=== PATIENT | female | born 1940 | race Caucasian/White ===

== ENCOUNTER 2022-01-13 17:56 | Inpatient (IN) | payer MEDICARE, OTHER ==
[~2022-01-13] VITALS: Ht 165.1 cm; Wt 72.3 kg
--- NOTE | 2022-01-13 18:05 | NUR ---
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 AAOX2, BREATHING EVEN AND UNLABORED. +COUGH. SKIN WARM TO TOUCH. ON MONITOR. WILL CONTINUE TO MONITOR. TEMP 102.3
[2022-01-13] MEDS ORDERED: ACETAMINOPHEN ES 500 MG TABLET PO ONE (18:30)
[2022-01-13 18:54] LABS: CALCIUM, SERUM 9.1 mg/dL (8.5-10.1); CARBON DIOXIDE 29 mmol/L (21-32); CHLORIDE 101 mmol/L (98-107); CREATININE 1.4 mg/dL (0.6-1.3); GLUCOSE 147 mg/dL (74-106); POTASSIUM 4.1 mmol/L (3.5-5.1); SODIUM SERUM 138 mmol/L (136-145); UREA NITROGEN, BLOOD 23 mg/dL (7-18)
[2022-01-13 19:07] LABS: ALANINE AMINOTRANSFERASE 17 U/L (12-78); ALBUMIN 3.3 g/dL (3.4-5.0); ALKALINE PHOSPHATASE 39 U/L (46-116); ASPARTATE AMINOTRANSFERASE 16 U/L (15-37); BILIRUBIN,DIRECT 0.1 mg/dL (0.0-0.2); BILIRUBIN,TOTAL 0.3 mg/dL (0.2-1.0); TOTAL PROTEIN, SERUM 7.1 g/dL (6.4-8.2)
--- NOTE | 2022-01-13 19:09 | NUR ---
URINE SAMPLE OBTAINED AND SENT TO LAB
[2022-01-13] MEDS ORDERED: ACETAMINOPHEN ES 500 MG TABLET ONE (19:16)
--- NOTE | 2022-01-13 19:27 | NUR ---
[facility] [phone]
--- NOTE | 2022-01-13 19:32 | NUR ---
CALLED [facility], PAGED AIDAN FOR ADMISSION
[2022-01-13 19:51] LABS: BILIRUBIN,URINE NEGATIVE (NEGATIVE); COLOR,URINE YELLOW (YELLOW); LEUKOCYTE ESTERASE ,URINE NEGATIVE (NEGATIVE); NITRITE, URINE POSITIVE (NEGATIVE); PROTEIN,URINE NEGATIVE (NEGATIVE); UGLUCOSE NEGATIVE (NEGATIVE); UROBILINOGEN,URINE 0.2 EU/dL (0.2)
[2022-01-13] MEDS ORDERED: MORPHINE SULFATE INJ 2 MG/ML DISP.SYRIN IV PRN (20:00)
[2022-01-13] MEDS ORDERED: CEFTRIAXONE 1 G in IV D5W 50 ML IV ONE (20:00)
[2022-01-13] MEDS ORDERED: ONDANSETRON HCL/PF 4 MG/2 ML VIAL IVP PRN (20:00)
[2022-01-13] MEDS ORDERED: IV NS 0.9% 1,000 ML IV ONE (20:00)
[2022-01-13] MEDS ORDERED: IV NS 0.9% 1,000 ML BAG IV ONE (20:00)
[2022-01-13] MEDS ORDERED: LABETALOL 20 MG/4 ML VIAL IV PRN (20:00)
[2022-01-13] MEDS ORDERED: AZITHROMYCIN 250 MG TABLET PO ONE (20:00)
[2022-01-13 20:04] LABS: BASOPHILS % (AUTO) 0.2 % (0.0-2.0); EOSINOPHILS % (AUTO) 0.6 % (0.0-6.0); HEMATOCRIT 35 % (33-45); HEMOGLOBIN 11.5 g/dL (11.5-14.8); LYMPHOCYTES # (AUTO) 0.9 K/uL (0.8-4.8); LYMPHOCYTES % (AUTO) 7.9 % (20.0-44.0); MEAN CORPUSCULAR HGB CONC 33 g/dl (31.0-36.0); MEAN CORPUSCULAR VOLUME 91 fL (82-100); MONOCYTES # (AUTO) 0.4 K/uL (0.1-1.30); NEUTROPHILS # (AUTO) 10.6 K/uL (1.8-8.9); NEUTROPHILS % (AUTO) 88.3 % (43.0-81.0); PLATELET COUNT (AUTO) 229 K/uL (150-450); RED BLOOD CELL COUNT(AUTO) 3.87 MIL/uL (4.0-5.2)
[2022-01-13 20:04] LABS: BACTERIA,URINE 4+ /HPF (None Seen)
--- NOTE | 2022-01-13 20:40 | NUR ---
pt taken to ct via samantha
[2022-01-13 20:41] LABS: BAND % (MANUAL) 7 % (0.0-5.0); LYMPHOCYTES % (MANUAL) 12 % (16-48); MONOCYTES % (MANUAL) 5 % (0-11.0); NEUTROPHILS % (MANUAL) 76 (42-76)
--- NOTE | 2022-01-13 20:46 | NUR ---
pt returned to er bed [address]
[2022-01-13] MEDS ORDERED: AZITHROMYCIN 250 MG TABLET ONE (20:48)
[2022-01-13] MEDS ORDERED: CEFTRIAXONE 1 G in IV D5W 50 ML IV SCH (21:00)
[2022-01-13] MEDS ORDERED: HEPARIN SODIUM, PORCINE 5000 UNITS/1 ML VIAL SQ SCH (21:00)
[2022-01-13] MEDS: HEPARIN SODIUM, PORCINE 5000 UNITS/1 ML VIAL SQ SCH (21:40)
[2022-01-13] MEDS ORDERED: HEPARIN SODIUM, PORCINE 5000 UNITS/1 ML VIAL ONE (21:40)
[2022-01-13] MEDS: METOPROLOL TARTRATE 25 MG TABLET PO SCH (23:00)
[2022-01-13] MEDS ORDERED: METOPROLOL TARTRATE 25 MG TABLET ONE (23:24)
[2022-01-13 23:55] LABS: THYROID STIMULATING HORMONE 1.009 uIU/mL (0.358-3.74)
[2022-01-14 00:10] LABS: ABG BASE EXCESS -1.3 mmol/L; ABG PCO2 41.8 mmHg (35.0-45.0); ABG PH 7.374 (7.350-7.450); ABG PO2 76.1 mmHg (75.0-100.0); COHb 0.2 % (0.5-1.5); O2Hb 93.9 % (94.0-97.0); SITE, ABG Right Brachial; VENT MODE, BG 5L N/C
[2022-01-14] MEDS: IPRATROPIUM/ALBUTEROL INHALER IH SCH ×4 (01:30→21:08)
--- NOTE | 2022-01-14 02:10 | NUR ---
PT SLEEPING IN BED WITH NO ACUTE DISTRESS AT THIS TIME. TOLERATING O2 5LPM VIA N/C WITH NO SOB; SATTING AT 97%. L HAND #20G S/L; NS @ 80ML/HR. WILL CONTINUE TO MONITOR.
--- NOTE | 2022-01-14 04:10 | NUR ---
RAC #20G S/L; PATENT AND INTACT. AM BLOOD DRAWN AND GIVEN TO LAB
[2022-01-14 04:36] LABS: BASOPHILS # (AUTO) 0.1 K/uL (0.0-0.2); BASOPHILS % (AUTO) 0.3 % (0.0-2.0); EOSINOPHILS % (AUTO) 0.5 % (0.0-6.0); HEMATOCRIT 36 % (33-45); HEMOGLOBIN 11.6 g/dL (11.5-14.8); LYMPHOCYTES % (AUTO) 18.9 % (20.0-44.0); MEAN CORPUSCULAR HGB CONC 32 g/dl (31.0-36.0); MEAN CORPUSCULAR VOLUME 93 fL (82-100); MONOCYTES # (AUTO) 0.9 K/uL (0.1-1.30); MONOCYTES % (AUTO) 4.3 % (2.0-12.0); NEUTROPHILS # (AUTO) 16.1 K/uL (1.8-8.9); PLATELET COUNT (AUTO) 288 K/uL (150-450); WHITE BLOOD COUNT (AUTO) 21.2 K/uL (4.3-11.0)
[2022-01-14 05:00] LABS: ALANINE AMINOTRANSFERASE 15 U/L (12-78); ALBUMIN 3.4 g/dL (3.4-5.0); ALKALINE PHOSPHATASE 42 U/L (46-116); ASPARTATE AMINOTRANSFERASE 17 U/L (15-37); BILIRUBIN,TOTAL 0.4 mg/dL (0.2-1.0); CALCIUM, SERUM 9.1 mg/dL (8.5-10.1); CARBON DIOXIDE 23 mmol/L (21-32); CHLORIDE 101 mmol/L (98-107); CREATININE 1.7 mg/dL (0.6-1.3); GLUCOSE 160 mg/dL (74-106); MAGNESIUM 1.7 mg/dL (1.8-2.4); PHOSPHORUS 3.2 mg/dL (2.5-4.9); POTASSIUM 3.3 mmol/L (3.5-5.1); SODIUM SERUM 140 mmol/L (136-145); TOTAL PROTEIN, SERUM 7.7 g/dL (6.4-8.2); UREA NITROGEN, BLOOD 24 mg/dL (7-18)
--- NOTE | 2022-01-14 08:20 | NUR ---
BED ASSIGNED IS 104
--- NOTE | 2022-01-14 08:38 | NUR ---
REPORT GIVEN TO EDNA ELIAS FOR DEN
[2022-01-14] MEDS ORDERED: CEFTRIAXONE 1 G VIAL IM SCH (09:00)
--- NOTE | 2022-01-14 09:39 | NUR ---
WOUND CARE CONSULT: PT PRESENTS WITH OPEN WOUND TO RT LATERAL FOOT, PRESENT ON ADMISSION. DR MONROY CALLED FOR DPM CONSULT. RECOMMENDATIONS MADE FOR SKIN PROTECTION AND DISCUSSED WITH NURSING STAFF. MD IN AGREEMENT WITH PLAN OF CARE.
[2022-01-14] MEDS ORDERED: POTASSIUM CHLORIDE 10 MEQ TABLET.SA PO ONE (10:00)
[2022-01-14] MEDS ORDERED: MAGNESIUM OXIDE 400 MG TABLET PO ONE (10:00)
[2022-01-14] MEDS ORDERED: Z GUARD REMEDY 4 OZ OINT TP PRN (10:00)
[2022-01-14] MEDS: DEXAMETHASONE SOD PHOSPHATE 10 MG/ML VIAL IV SCH (10:10)
[2022-01-14] MEDS: HEPARIN SODIUM, PORCINE 5000 UNITS/1 ML VIAL SQ SCH ×2 (10:11→21:27)
[2022-01-14] MEDS: METOPROLOL TARTRATE 25 MG TABLET PO SCH ×2 (10:12→21:12)
[2022-01-14] MEDS: Z GUARD REMEDY 4 OZ OINT TP SCH (10:56)
--- NOTE | 2022-01-14 11:12 | NUR ---
RN NOTES INHALER NOT ADMINISTERED FOR 734, PATIENT STILL IN THE ER.
[2022-01-14 12:00] VITALS: BP 139/71
[2022-01-14 16:00] VITALS: BP 149/70
--- NOTE | 2022-01-14 18:30 | NUR ---
RN CLOSING NOTES; PT A/OX1, NIGERIAN SPEAKING. CAN MAKE NEEDS KNOWN THROUGH GESTURES. NO C/O PAIN AT THIS TIME. NO EVIDENCE TO SOB, OR DISTRESS NOTED. ALL MEDICATIONS GIVEN AND TOLERATED WELL. PT KEPT CLEAN, DRY , AND COMFORTABLE. ALL SAFETY MEASURES RENDERED, BED LOCKED IN LOWEST POS. SIDERAILSX3, WITH CALL LIGHT WITHIN REACH. WILL ENDORSE TO MERCHANDISING EXECUTION ASSOCIATE RN.
--- NOTE | 2022-01-14 19:30 | NUR ---
RN OPENING NOTES; RECEIVED PT IN BED AWAKE, A/OX1, ESTONIAN SPEAKING. ON O2 2L/MIN VIA N/C AND PT TOLERATED WELL. NO SOB NOTED. BREATHING EVEN AND UNLABORED. IV ACCESS ON RAC#20G INTACT AND PATENT. NO S/S OF INFILTRATION. NO C/O PAIN OR DISCOMFORT. NO ACUTE DISTRESS. BILATERAL SOFT RESTRAINT ON PLACE. ALL SAFETY MEASURES IN PLACE. BED LOCKED IN LOWEST POSITION. SIDERAILS UP X3, PLACE CALL LIGHT WITHIN REACH. WILL CONTINUE TO MONITOR.
[2022-01-14 20:00] VITALS: BP 153/92
[2022-01-14] MEDS: AZITHROMYCIN 500 MG in IV D5W 250 ML IV SCH (20:57)
[2022-01-14] MEDS: CEFTRIAXONE 1 G in IV D5W 50 ML IV SCH (20:57)
[2022-01-15] VITALS: BP 156/74
[2022-01-15] MEDS: IPRATROPIUM/ALBUTEROL INHALER IH SCH ×3 (01:28→20:36)
[2022-01-15 04:00] VITALS: BP 159/89
--- NOTE | 2022-01-15 06:40 | NUR ---
RN CLOSING NOTES; PT IN BED AWAKE, A/OX1, MACEDONIAN SPEAKING. ON O2 2L/MIN VIA N/C, O2 SAT 93% AND PT TOLERATED WELL. NO SOB NOTED. BREATHING EVEN AND UNLABORED. IV ACCESS ON RAC#20G INTACT AND PATENT. NO S/S OF INFILTRATION. RUNNING NS AT 75CC/HR. NO C/O PAIN OR DISCOMFORT. NO ACUTE DISTRESS. BILATERAL SOFT RESTRAINT ON PLACE. RELEASE [id number] TO CHECK CIRCULATIONS. ALL DUE MEDS GIVEN ORDERED. ALL SAFETY MEASURES IN PLACE. BED LOCKED IN LOWEST POSITION. SIDERAILS UP X3, PLACE CALL LIGHT WITHIN REACH. WILL ENDORSE TO MORNING SHIFT NURSE. Addendum: 01/15/22 at 0736 by SURJIT RUTH RN WRONG CHART
--- NOTE | 2022-01-15 06:40 | NUR ---
RN CLOSING NOTES; PT IN BED AWAKE, A/OX1, JAPANESE SPEAKING. ON O2 2L/MIN VIA N/C, O2 SAT 93% AND PT TOLERATED WELL. NO SOB NOTED. BREATHING EVEN AND UNLABORED. IV ACCESS ON RAC#20G INTACT AND PATENT. NO S/S OF INFILTRATION. NO C/O PAIN OR DISCOMFORT. NO ACUTE DISTRESS. BILATERAL SOFT RESTRAINT ON PLACE. RELEASE [id number] TO CHECK CIRCULATIONS. ALL DUE MEDS GIVEN ORDERED. ALL SAFETY MEASURES IN PLACE. BED LOCKED IN LOWEST POSITION. SIDERAILS UP X3, PLACE CALL LIGHT WITHIN REACH. WILL ENDORSE TO MORNING SHIFT NURSE.
[2022-01-15 06:59] LABS: BASOPHILS % (AUTO) 0.2 % (0.0-2.0); HEMATOCRIT 33 % (33-45); LYMPHOCYTES # (AUTO) 0.9 K/uL (0.8-4.8); LYMPHOCYTES % (AUTO) 8.4 % (20.0-44.0); MEAN CORPUSCULAR HGB CONC 34 g/dl (31.0-36.0); MEAN CORPUSCULAR VOLUME 90 fL (82-100); MONOCYTES # (AUTO) 0.4 K/uL (0.1-1.30); MONOCYTES % (AUTO) 3.6 % (2.0-12.0); NEUTROPHILS # (AUTO) 9.5 K/uL (1.8-8.9); NEUTROPHILS % (AUTO) 87.8 % (43.0-81.0); PLATELET COUNT (AUTO) 240 K/uL (150-450); RED BLOOD CELL COUNT(AUTO) 3.66 MIL/uL (4.0-5.2); WHITE BLOOD COUNT (AUTO) 10.9 K/uL (4.3-11.0)
--- NOTE | 2022-01-15 07:15 | NUR ---
RN OPENING NOTES; RECEIVED PT IN BED AWAKE, A/OX1, FILIPINO SPEAKING. ON O2 2L/MIN VIA N/C, NO SOB NOTED. SATURATION @93%. BREATHING EVEN AND UNLABORED. IV ACCESS ON RAC#20G INTACT AND PATENT, SALINE LOCKED. NO C/O PAIN OR DISCOMFORT. NO ACUTE DISTRESS. BILATERAL SOFT RESTRAINT IN PLACE. SAFETY MEASURES IN PLACE. BED LOCKED IN LOWEST POSITION. SIDERAILS UP X3, CALL LIGHT PLACED WITHIN REACH. WILL CONTINUE TO MONITOR.
[2022-01-15 07:37] LABS: BILIRUBIN,TOTAL 0.3 mg/dL (0.2-1.0); CALCIUM, SERUM 9.5 mg/dL (8.5-10.1); CREATININE 1.1 mg/dL (0.6-1.3); MAGNESIUM 1.8 mg/dL (1.8-2.4); PHOSPHORUS 2.1 mg/dL (2.5-4.9); TOTAL PROTEIN, SERUM 7.4 g/dL (6.4-8.2)
[2022-01-15 08:00] VITALS: BP 161/81
[2022-01-15] MEDS: DEXAMETHASONE SOD PHOSPHATE 10 MG/ML VIAL IV SCH (08:28)
[2022-01-15] MEDS: METOPROLOL TARTRATE 25 MG TABLET PO SCH ×2 (08:29→21:15)
[2022-01-15] MEDS: HEPARIN SODIUM, PORCINE 5000 UNITS/1 ML VIAL SQ SCH ×2 (08:31→21:16)
[2022-01-15] MEDS: Z GUARD REMEDY 4 OZ OINT TP SCH (08:32)
[2022-01-15] MEDS ORDERED: ERGO500093 PO (08:49)
[2022-01-15] MEDS ORDERED: MECL-182 PO (08:49)
[2022-01-15] MEDS ORDERED: ASPI-1420 PO (08:49)
[2022-01-15] MEDS ORDERED: LORA-259 PO (08:49)
[2022-01-15] MEDS: THERAHONEY GEL 1.5 OZ TUBE TP SCH (09:25)
[2022-01-15] MEDS: ENSURE ENLIVE CHOC 237 ML CAN PO SCH ×3 (09:58→17:08)
[2022-01-15] MEDS ORDERED: K PHOS NEUTRAL 250 MG TABLET PO ONE (10:00)
[2022-01-15 12:00] VITALS: BP 164/104
[2022-01-15 16:00] VITALS: BP 151/84
--- NOTE | 2022-01-15 18:50 | NUR ---
RN CLOSING NOTES PT IN BED AWAKE, A/OX1-2, TONGAN SPEAKING. REMAINS ON O2 2L/MIN VIA N/C, NO SOB NOTED. SATURATION @93%. BREATHING EVEN AND UNLABORED. IV ACCESS ON RAC#20G INTACT AND PATENT, SALINE LOCKED. ON TELE MONITOR SHOWING CONTROLLED AFIB HR ON 90 - 110'S. NO C/O PAIN OR DISCOMFORT. NO ACUTE DISTRESS. BILATERAL SOFT RESTRAINT IN PLACE. SAFETY MEASURES IN PLACE. BED LOCKED IN LOWEST POSITION. SIDERAILS UP X3, CALL LIGHT PLACED WITHIN REACH. WILL ENDORSE TO NEXT SHIFT.
--- NOTE | 2022-01-15 19:00 | NUR ---
RECEIVED IN PATIENT IN HER BED SINHALA SPEAKING DIAPER CHANGED D/T SHE VOIDED NOT AGITATION AND HER PULLING ON THE BLANKETS ALAN WRIST RESTRAINTS REMOVED WHILE I WAS IN THE ROOM SHE PROCECEC TO REMOCE HER LEAD FRONT DESK AGENT SHE IS CONFUSED OF THE SITUATION GAVE HER WATER AND SHE SWALLOWED W/O A PROBLEM ASP PRECAUTIONS MAINTAINTAINED
[2022-01-15 20:00] VITALS: BP 149/93
[2022-01-15] MEDS: CEFTRIAXONE 1 G in IV D5W 50 ML IV SCH (20:30)
[2022-01-15] MEDS: AZITHROMYCIN 500 MG in IV D5W 250 ML IV SCH (21:14)
[2022-01-15] MEDS: ACETAMINOPHEN 325 MG TABLET PO PRN (21:46)
[2022-01-16] VITALS: BP 145/68
[2022-01-16] MEDS: IPRATROPIUM/ALBUTEROL INHALER IH SCH ×4 (03:01→21:40)
[2022-01-16 04:09] VITALS: BP 154/66
--- NOTE | 2022-01-16 04:35 | NUR ---
alert but confused wrist restraints on d/t she removes her IV or the telle box wrist restraints off when nuse is in the room moderate bm clean and repositioned call light reveiewed with her , understand not present. room near the nursing station making freq checks easy 02 2liters sats 92 - 94%
[2022-01-16 08:00] VITALS: BP 158/78
[2022-01-16] MEDS: DEXAMETHASONE SOD PHOSPHATE 10 MG/ML VIAL IV SCH (08:47)
[2022-01-16] MEDS: HEPARIN SODIUM, PORCINE 5000 UNITS/1 ML VIAL SQ SCH ×2 (08:49→21:36)
[2022-01-16] MEDS: METOPROLOL TARTRATE 25 MG TABLET PO SCH ×2 (08:53→21:33)
[2022-01-16] MEDS: ENSURE ENLIVE CHOC 237 ML CAN PO SCH ×3 (09:06→17:53)
[2022-01-16] MEDS: THERAHONEY GEL 1.5 OZ TUBE TP SCH (09:57)
[2022-01-16] MEDS: Z GUARD REMEDY 4 OZ OINT TP SCH (09:57)
[2022-01-16 12:00] VITALS: BP 133/78
[2022-01-16 16:00] VITALS: BP 129/82
--- NOTE | 2022-01-16 18:43 | NUR ---
RN NOTES PT RESTING AWAKE IN BED. STABLE THROUGHOUT SHIFT. A/OX1-2. REMAINS ON O2 2L/MIN VIA N/C, NO SOB NOTED. SATURATION @94%. IV ACCESS ON LFA#20G INTACT AND PATENT, SALINE LOCKED. TELE MONITOR SHOWING SR/ST. NO C/O PAIN OR DISCOMFORT. NO ACUTE DISTRESS. BILATERAL SOFT RESTRAINT IN PLACE. SAFETY MEASURES FOLLOWED. BED LOCKED IN LOWEST POSITION. SIDERAILS UP X3, CALL LIGHT PLACED WITHIN REACH. WILL ENDORSE TO NEXT SHIFT.DUE MEDICATIONS GIVEN.
--- NOTE | 2022-01-16 19:10 | NUR ---
RN NOTES RECEIVED REPORT FROM MORNING NURSE PATIENT IN BED. A/O X 1-2. WITH OXYGEN INHALATION AT 2LPM VIA NASAL CANULA SATING 95%. NO DISTRESS NO DESATURATION NOTED AT THIS TIME. WITH IV ACCESS AT RFA # 22 PATENT FLUSHES WELL. VITAL SIGNS TAKEN AND RECORDED AFEBRILE. ALL SAFETY MEASURES IN PLACE AT ALL TIMES. HOB ELEVATED. CALL LIGHT WITHIN REACH. WILL CONTINUE TO MONITOR THE PATIENT
[2022-01-16 20:00] VITALS: BP 129/82
[2022-01-16] MEDS: CEFTRIAXONE 1 G in IV D5W 50 ML IV SCH (21:32)
[2022-01-16] MEDS: AZITHROMYCIN 500 MG in IV D5W 250 ML IV SCH (21:32)
[2022-01-17] VITALS (7 sets, daily range): BP systolic 140–163; BP diastolic 72–97
[2022-01-17] MEDS: IPRATROPIUM/ALBUTEROL INHALER IH SCH ×2 (05:56→19:38)
--- NOTE | 2022-01-17 06:58 | NUR ---
RN CLOSING NOTES PT IN BED AWAKE, A/OX1-2, VATICAN CITIZEN SPEAKING. REMAINS ON O2 2L/MIN VIA N/C, NO SOB NOTED. SATURATION @93%. BREATHING EVEN AND UNLABORED. IV ACCESS ON R FOREARM #22G INTACT AND PATENT, SALINE LOCKED. ON TELE MONITOR SHOWING CONTROLLED AFIB HR ON 90 - 110'S. NO C/O PAIN OR DISCOMFORT. NO ACUTE DISTRESS. BILATERAL SOFT RESTRAINT IN PLACE. SAFETY MEASURES IN PLACE. BED LOCKED IN LOWEST POSITION. SIDERAILS UP X3, CALL LIGHT PLACED WITHIN REACH. WILL ENDORSE TO NEXT SHIFT.
--- NOTE | 2022-01-17 07:43 | NUR ---
DEAN OF WOMEN OPENING NOTES RECEIVED PATIENT IN BED, A/O X 1-2. WITH OXYGEN SUPPLEMENTATION AT 2LPM VIA NASAL CANULA SATING 95%. NO DISTRESS NO DESATURATION NOTED AT THIS TIME. WITH IV ACCESS AT RFA # 22 PATENT FLUSHES WELL. VITAL SIGNS TAKEN AND RECORDED AFEBRILE. SOFT RESTRAINTS INTACT DUE TO DISRUPTION OF CARE. BILATERAL PULSES PALPATED AND WNL. ALL SAFETY MEASURES IN PLACE AT ALL TIMES. HOB ELEVATED. CALL LIGHT WITHIN REACH. WILL CONTINUE TO MONITOR THE PATIENT.
[2022-01-17] MEDS: ENSURE ENLIVE CHOC 237 ML CAN PO SCH ×3 (08:00→16:40)
[2022-01-17 08:19] LABS: BASOPHILS % (AUTO) 0.4 % (0.0-2.0); HEMATOCRIT 37 % (33-45); HEMOGLOBIN 11.8 g/dL (11.5-14.8); LYMPHOCYTES # (AUTO) 1.1 K/uL (0.8-4.8); LYMPHOCYTES % (AUTO) 13.8 % (20.0-44.0); MEAN CORPUSCULAR HGB CONC 32 g/dl (31.0-36.0); MEAN CORPUSCULAR VOLUME 91 fL (82-100); MONOCYTES # (AUTO) 0.6 K/uL (0.1-1.30); MONOCYTES % (AUTO) 7.3 % (2.0-12.0); NEUTROPHILS # (AUTO) 6.1 K/uL (1.8-8.9); NEUTROPHILS % (AUTO) 78.5 % (43.0-81.0); PLATELET COUNT (AUTO) 275 K/uL (150-450); RED BLOOD CELL COUNT(AUTO) 4.02 MIL/uL (4.0-5.2); WHITE BLOOD COUNT (AUTO) 7.8 K/uL (4.3-11.0)
[2022-01-17 09:03] LABS: CALCIUM, SERUM 9.2 mg/dL (8.5-10.1); MAGNESIUM 2.4 mg/dL (1.8-2.4); POTASSIUM 3.4 mmol/L (3.5-5.1)
[2022-01-17] MEDS: Z GUARD REMEDY 4 OZ OINT TP SCH (10:09)
[2022-01-17] MEDS: METOPROLOL TARTRATE 25 MG TABLET PO SCH ×2 (10:09→22:39)
[2022-01-17] MEDS: DEXAMETHASONE SOD PHOSPHATE 10 MG/ML VIAL IV SCH (10:09)
[2022-01-17] MEDS: THERAHONEY GEL 1.5 OZ TUBE TP SCH (10:09)
[2022-01-17] MEDS: HEPARIN SODIUM, PORCINE 5000 UNITS/1 ML VIAL SQ SCH ×2 (10:18→22:40)
--- NOTE | 2022-01-17 12:30 | NUR ---
FAMILY THERAPIST NOTE SPOKE WITH DR MOSES NOTIFIED THAT PATIENT PCR IS NEGATIVE PER LAB AND FAMILY WANTS TO TRANSFER TO [facility] , PER DR MOSES OK TO TRANSFER TO ROOM 328-2
--- NOTE | 2022-01-17 14:38 | NUR ---
HYDRAULIC PILE HAMMER OPERATOR NOTES CALLED LAB TO VERIFY RESULT OF PCR TEST. SPOKE TO LAB PERSONNEL, HE SAID PCR IS NEGATIVE BUT UNABLE TO PLACE RESULTS IN COMPUTER DUE TO MACHINE/COMPUTER BEING BROKEN. FAMILY WANTS TO TRANSFER PT TO [facility]. NURSING STRADDLE BUG OPERATOR NOTIFIED. WILL FOLLOW UP.
--- NOTE | 2022-01-17 18:11 | NUR ---
LICENSED INSURANCE AGENT CLOSING NOTES PT IN BED AWAKE, A/OX1-2, SURINAMESE SPEAKING. REMAINS ON O2 2L/MIN VIA N/C, NO SOB NOTED. SATURATION @95%. BREATHING EVEN AND UNLABORED. IV ACCESS ON R FOREARM #22G INTACT AND PATENT, SALINE LOCKED. ON TELE MONITOR SHOWING SINUS RHYTHM IN THE 90S. NO C/O PAIN OR DISCOMFORT. NO ACUTE DISTRESS. BILATERAL SOFT RESTRAINT IN PLACE. PALPABLE RADIAL ARTERIES BILATERALLY. SAFETY MEASURES IN PLACE. BED LOCKED IN LOWEST POSITION. SIDERAILS UP X3, CALL LIGHT PLACED WITHIN REACH. WILL ENDORSE TO NEXT SHIFT.
--- NOTE | 2022-01-17 19:10 | NUR ---
RN NOTES RECEIVED REPORT FROM MORNING RN.PATIENT IN BED A/O X 1 IRANIAN SPEAKING. WITH OXYGEN INHALATION AT 2 LMP VIA NC TOLERATING WELL SATING 96%. WITH IV ACCESS AT R FA #22 PATENT FLUSHES WELL. VITAL SIGNS TAKEN AND RECORDED AFEBRILE. ALL SAFETY MEASURES IN PLACE AT ALL TIMES. HOB ELEVATED. CALL LIGHT WITHIN REACH. JAMIR ON LOWEST POSITION AND LOCKED. FOR TRANSFER TO [facility].
--- NOTE | 2022-01-17 20:12 | NUR ---
RN NOTES RELAYED TO DR MOSES POTASSIUM 3.4. WITH NEW ORDER TO GIVE POTASSIUM TAB 40 MEQ GIVEN P.O.
[2022-01-17] MEDS ORDERED: POTASSIUM CHLORIDE 20 MEQ TAB.PRT.SR PO ONE (20:30)
--- NOTE | 2022-01-17 21:00 | NUR ---
RN NOTES PATIENT TRANSFER TO [address] [place] [address] 329. BEDSIDE REPORT GIVEN TO JOSE ELIAS. ALL MEDICATIONS AND BELONGINGS GIVEN AND ENDORSED. PATIENT COMFORTABLE AND STABLE IN BED.
--- NOTE | 2022-01-17 21:15 | NUR ---
LINE TECHNICIANCOMMUNICATION SPEC RECEIVING NOTE PATIENT RECEIVED FROM JOELLEN BY TRAVIS. DAVID BROUGHT PATIENT TO ROOM 329/1. PATIENT IS A/OX1. YORUBA SPEAKING. RFA #22 SL INTACT AND PATENT. NO S/S OF DISTRESS, BREATHING SYMMETRICAL. TELE MONITOR PLACED ON PATIENT AND REVEALED SR 98. RT FOOT ULCERATION NOTED AND PICTURE UNIT PICTURE TAKEN OF AND PLACED IN CHART. PATIENT WAS STILL ORIENTED TO THE ROOM, THE UNIT, AND GIVEN THE CALL SERRANO ALONG WITH ITS INSTRUCTION OF USE. PATIENT IS IN BILAT SOFT WRIST RESTRAINTS D/T TO PULLING LINES OUT. ORDER WILL BE RENEWED AT 0000. THE MANUFACTURING HELPERBING, HAD THE BELONGINGS ACCOUNTED FOR AND LOGGED INTO THE PATIENT'S CHART. SAFETY MEASURES IN PLACE: BED AT LOWEST POSITION, RAILS UP X2, CALL SERRANO WITHIN REACH. WILL CONTINUE TO MONITOR PATIENT.
[2022-01-17] MEDS: CEFTRIAXONE 1 G in IV D5W 50 ML IV SCH (21:45)
[2022-01-17] MEDS: AZITHROMYCIN 500 MG in IV D5W 250 ML IV SCH (22:30)
[2022-01-18] VITALS: BP 151/81
[2022-01-18] MEDS: IPRATROPIUM/ALBUTEROL INHALER IH SCH ×3 (01:30→13:48)
[2022-01-18 04:00] VITALS: BP 145/80
--- NOTE | 2022-01-18 06:46 | NUR ---
FAMILY REUNIFICATION SPECIALIST CLOSING NOTE PATIENT IS ASLEEP IN BED. A/OX1. EAST TIMORESE SPEAKING ONLY. NO S/S OF DISTRESS, BREATHING SYMMETRICAL. 3L NC. RFA #22 SL INTACT AND PATENT. TELE MONITOR REVEALS SR 88. FRESH DRESSING APPLIED TO RIGHT FOOT WOUND. SAFETY MEASURES IN PLACE: BED AT LOWEST POSITION, RAILS UP X2, CALL SERRANO WITHIN REACH. WILL ENDORSE TO NEXT SHIFT FOR DEN.
--- NOTE | 2022-01-18 07:43 | NUR ---
GRAIN DISTRIBUTOR OPENING NOTES RECEIVED Pt IN BED RESTING. Pt IS CITIZEN OF [place] SPEAKING. A/Ox1. Pt IS ON 3L VIA NC AND IS TOLERATING WELL. NO COMPLAINTS OF PAIN AND NO SIGNS OF DISTRESS AT THIS TIME. SAFETY MEASURES ARE IN PLACE: BED IS LOCKED AND IN LOWEST POSITION. SIDE RAILS UPx2. BED SIDE TABLE AND CALL LIGHT ARE WITHIN REACH.WILL CONTINUE TO MONITOR THROUGHOUT THE SHIFT
[2022-01-18] MEDS: ENSURE ENLIVE CHOC 237 ML CAN PO SCH ×3 (07:52→17:18)
[2022-01-18 08:00] VITALS: BP 149/82
[2022-01-18] MEDS: DEXAMETHASONE SOD PHOSPHATE 10 MG/ML VIAL IV SCH (09:16)
[2022-01-18] MEDS: METOPROLOL TARTRATE 25 MG TABLET PO SCH ×2 (09:16→20:24)
[2022-01-18] MEDS: Z GUARD REMEDY 4 OZ OINT TP SCH (09:17)
[2022-01-18] MEDS: THERAHONEY GEL 1.5 OZ TUBE TP SCH (09:17)
[2022-01-18] MEDS: HEPARIN SODIUM, PORCINE 5000 UNITS/1 ML VIAL SQ SCH ×2 (09:20→20:23)
[2022-01-18 12:00] VITALS: BP 160/91
[2022-01-18 16:00] VITALS: BP 158/88
--- NOTE | 2022-01-18 18:58 | NUR ---
FLIGHT OPERATIONS MANAGER CLOSING NOTES Pt IS IN BED WITH FAMILY AT BEDSIDE. SHE IS A/Ox1. Pt IS CONFUSED AND SPEAKS ROMANIAN. SHE IS ON NC 3L WITH NO DISTRESS AT THIS TIME. SAFETY MEASURES ARE IN PLACE: BED IS LOCKED AND IN LOWEST POSITION. SIDE RAILS UPx3. CALL LIGHT AND BED SIDE TABLE WITHIN REACH, WILL ENDORSE TO ONCOMING SHIFT.
--- NOTE | 2022-01-18 19:45 | NUR ---
SURGERY AID OPENING NOTES RECEIVED PATIENT LAYING AWAKE IN BED. A/O X1. PATIENT ON REGULAR AND UNLABORED BREATHING ON 3LPM VIA NASAL CANULA, TOLERATED WELL. NO SIGNS OR SYMPTOMS OF DISTRESS NOTED AT THIS TIME. NO COMPLAINS OF PAIN OR DISCOMFORT AT THIS TIME. PATIENT ON TELE MONITOR READING ST @ 116 BPM. IV ACCESS RFA G #22 SL. IV ACCESS PATENT AND INTACT. SAFETY PRECAUTIONS ENFORCED WITH BED LOCKED AND AT LOWEST POSITION. SIDERAILS UP X2. CALL LIGHT WITHIN REACH AT ALL TIMES. WILL CONTINUE TO MONITOR PATIENT.
[2022-01-18 20:00] VITALS: BP 132/81
[2022-01-18] MEDS: CEFTRIAXONE 1 G in IV D5W 50 ML IV SCH (20:20)
[2022-01-19] VITALS: BP 131/73
[2022-01-19 04:00] VITALS: BP 153/96
[2022-01-19 06:38] LABS: BASOPHILS % (AUTO) 0.1 % (0.0-2.0); EOSINOPHILS % (AUTO) 0.1 % (0.0-6.0); HEMATOCRIT 31 % (33-45); HEMOGLOBIN 9.9 g/dL (11.5-14.8); LYMPHOCYTES # (AUTO) 1.5 K/uL (0.8-4.8); LYMPHOCYTES % (AUTO) 12.7 % (20.0-44.0); MEAN CORPUSCULAR HGB CONC 32 g/dl (31.0-36.0); MEAN CORPUSCULAR VOLUME 90 fL (82-100); MONOCYTES # (AUTO) 0.8 K/uL (0.1-1.30); MONOCYTES % (AUTO) 6.9 % (2.0-12.0); NEUTROPHILS # (AUTO) 9.3 K/uL (1.8-8.9); NEUTROPHILS % (AUTO) 80.2 % (43.0-81.0); PLATELET COUNT (AUTO) 262 K/uL (150-450); RED BLOOD CELL COUNT(AUTO) 3.38 MIL/uL (4.0-5.2); WHITE BLOOD COUNT (AUTO) 11.6 K/uL (4.3-11.0)
[2022-01-19 07:27] LABS: CALCIUM, SERUM 8.8 mg/dL (8.5-10.1); CREATININE 0.9 mg/dL (0.6-1.3); MAGNESIUM 2.2 mg/dL (1.8-2.4); PHOSPHORUS 2.8 mg/dL (2.5-4.9); POTASSIUM 3.7 mmol/L (3.5-5.1)
--- NOTE | 2022-01-19 07:36 | NUR ---
DIRECTOR OF ENTERPRISE APPLICATIONS CLOSING NOTES PATIENT STILL LAYING AWAKE IN BED. A/O X1. PATIENT ON REGULAR AND UNLABORED BREATHING ON 3LPM VIA NASAL CANULA, TOLERATED WELL. NO SIGNS OR SYMPTOMS OF DISTRESS NOTED AT THIS TIME. NO COMPLAINS OF PAIN OR DISCOMFORT AT THIS TIME. PATIENT ON TELE MONITOR READING SR @ 90 BPM. IV ACCESS RFA G #22 SL. IV ACCESS PATENT AND INTACT. SAFETY PRECAUTIONS ENFORCED WITH BED LOCKED AND AT LOWEST POSITION. SIDERAILS UP X2. CALL LIGHT WITHIN REACH AT ALL TIMES. WILL ENDORSE CONTINUITY OF CARE TO DAY SHIFT NURSE.
--- NOTE | 2022-01-19 07:53 | NUR ---
DIETETICS TEACHER OPENING NOTE Patient in bed, awake. A/O x 1, Swedish speaking. On O2 at 3 LPM, breathing evenly and unlabored. No SOB or s/s of distress noted. IV acces on RFA #22G SL, intact and patent. Dressing on right foot c/d/i. On tele monitoring showing SR, HR on the 80's. Safety measures in place: bed in low, locked position; siderails up x 2; valentina light within reach. Will continue to monitor.
[2022-01-19 08:00] VITALS: BP 135/85
[2022-01-19] MEDS: ENSURE ENLIVE CHOC 237 ML CAN PO SCH ×3 (08:05→17:04)
[2022-01-19] MEDS: METOPROLOL TARTRATE 25 MG TABLET PO SCH ×2 (09:06→20:46)
[2022-01-19] MEDS: DEXAMETHASONE SOD PHOSPHATE 10 MG/ML VIAL IV SCH (09:06)
[2022-01-19] MEDS: HEPARIN SODIUM, PORCINE 5000 UNITS/1 ML VIAL SQ SCH ×2 (09:11→20:48)
[2022-01-19] MEDS: IPRATROPIUM/ALBUTEROL INHALER IH SCH ×3 (09:17→19:51)
[2022-01-19] MEDS: THERAHONEY GEL 1.5 OZ TUBE TP SCH (09:18)
[2022-01-19] MEDS: Z GUARD REMEDY 4 OZ OINT TP SCH (09:18)
[2022-01-19 12:00] VITALS: BP 136/78
[2022-01-19] MEDS: ACETAMINOPHEN 325 MG TABLET PO PRN (14:37)
[2022-01-19 16:00] VITALS: BP 133/84
--- NOTE | 2022-01-19 19:35 | NUR ---
CLEANING ASSOCIATE CLOSING NOTE Patient in bed, asleep. A/O x 1, Citizen Of [place] speaking. On O2 at 4 LPM, breathing evenly and unlabored. No SOB or s/s of distress noted. IV acces on RFA #22G SL, intact and patent. Wound care done, as ordered. Dressing on right foot c/d/i. On tele monitoring showing Sinus tachycardia, HR 102. Patient kept clean and dry. Due meds given. Safety measures maintained: bed in low, locked position; siderails up x 2; valentina light within reach. Will endorse to assembler 1st shift nurse for DEN.
--- NOTE | 2022-01-19 19:45 | NUR ---
IMPORT CUSTOMS CLEARING AGENT OPENING NOTES RECEIVED PATIENT LAYING AWAKE IN BED. A/O X1. PATIENT ON REGULAR AND UNLABORED BREATHING ON 4 LPM VIA NASAL CANULA, TOLERATED WELL. NO SIGNS OR SYMPTOMS OF DISTRESS NOTED AT THIS TIME. NO COMPLAINS OF PAIN OR DISCOMFORT AT THIS TIME. PATIENT ON TELE MONITOR READING SR @ 86 BPM. IV ACCESS RFA G #22 SL. IV ACCESS PATENT AND INTACT. SAFETY PRECAUTIONS ENFORCED WITH BED LOCKED AND AT LOWEST POSITION. SIDERAILS UP X2. CALL LIGHT WITHIN REACH AT ALL TIMES. WILL CONTINUE TO MONITOR PATIENT.
[2022-01-19 20:00] VITALS: BP 140/76
[2022-01-19] MEDS: CEFTRIAXONE 1 G in IV D5W 50 ML IV SCH (20:44)
[2022-01-20] VITALS: BP 115/67
[2022-01-20] MEDS: IPRATROPIUM/ALBUTEROL INHALER IH SCH ×3 (02:00→13:56)
[2022-01-20 04:00] VITALS: BP 130/78
--- NOTE | 2022-01-20 06:51 | NUR ---
SUPERINTENDENT LAUNDRY CLOSING NOTES PATIENT STILL LAYING AWAKE IN BED. A/O X1. PATIENT ON REGULAR AND UNLABORED BREATHING ON 3 LPM VIA NASAL CANULA, TOLERATED WELL. NO SIGNS OR SYMPTOMS OF DISTRESS NOTED AT THIS TIME. NO COMPLAINS OF PAIN OR DISCOMFORT AT THIS TIME. PATIENT ON TELE MONITOR READING SR @ 92 BPM. IV ACCESS RFA G #22 SL. IV ACCESS PATENT AND INTACT. SAFETY PRECAUTIONS ENFORCED WITH BED LOCKED AND AT LOWEST POSITION. SIDERAILS UP X2. CALL LIGHT WITHIN REACH AT ALL TIMES. WILL ENDORSE CONTINUITY OF CARE TO DAY SHIFT NURSE.
[2022-01-20 07:27] LABS: EOSINOPHILS % (AUTO) 0.1 % (0.0-6.0); HEMATOCRIT 32 % (33-45); HEMOGLOBIN 10.3 g/dL (11.5-14.8); LYMPHOCYTES # (AUTO) 2.1 K/uL (0.8-4.8); LYMPHOCYTES % (AUTO) 16.2 % (20.0-44.0); MEAN CORPUSCULAR HGB CONC 33 g/dl (31.0-36.0); MEAN CORPUSCULAR VOLUME 91 fL (82-100); MONOCYTES # (AUTO) 0.7 K/uL (0.1-1.30); MONOCYTES % (AUTO) 5.6 % (2.0-12.0); NEUTROPHILS # (AUTO) 10.3 K/uL (1.8-8.9); NEUTROPHILS % (AUTO) 78.1 % (43.0-81.0); PLATELET COUNT (AUTO) 272 K/uL (150-450); RED BLOOD CELL COUNT(AUTO) 3.46 MIL/uL (4.0-5.2); WHITE BLOOD COUNT (AUTO) 13.2 K/uL (4.3-11.0)
--- NOTE | 2022-01-20 07:43 | NUR ---
CARE ASSISTANT OPENING NOTES PATIENT LAYING AWAKE IN BED. A/O X1. PATIENT ON OXYGEN THERAPY AT 3 LPM VIA NASAL CANULA; BREATHING EVEN AND UNLABORED; NO SOB NOTED AT THIS TIME. NO COMPLAINS OF PAIN OR DISCOMFORT AT THIS TIME. PATIENT ON TELE MONITOR WITH A CURRENT READING OF SR-ST 99-102. IV ACCESS RFA G #22 SL. IV ACCESS PATENT AND INTACT. SAFETY PRECAUTIONS IN PLACE; BED LOCKED AND AT LOWEST POSITION. SIDE RAILS UP X2. CALL LIGHT WITHIN REACH AT ALL TIMES. WILL CONTINUE TO MONITOR PATIENT.
[2022-01-20 08:00] VITALS: BP 151/76
[2022-01-20] MEDS: ENSURE ENLIVE CHOC 237 ML CAN PO SCH ×3 (08:35→16:39)
[2022-01-20] MEDS: DEXAMETHASONE SOD PHOSPHATE 10 MG/ML VIAL IV SCH (08:35)
[2022-01-20] MEDS: METOPROLOL TARTRATE 25 MG TABLET PO SCH ×2 (08:38→20:39)
[2022-01-20] MEDS: Z GUARD REMEDY 4 OZ OINT TP SCH (08:39)
[2022-01-20] MEDS: HEPARIN SODIUM, PORCINE 5000 UNITS/1 ML VIAL SQ SCH ×2 (08:39→20:41)
[2022-01-20] MEDS: THERAHONEY GEL 1.5 OZ TUBE TP SCH (08:40)
[2022-01-20 08:49] LABS: CALCIUM, SERUM 9.1 mg/dL (8.5-10.1); CREATININE 0.9 mg/dL (0.6-1.3); PHOSPHORUS 3.2 mg/dL (2.5-4.9); POTASSIUM 4.8 mmol/L (3.5-5.1)
[2022-01-20 09:09] LABS: MAGNESIUM 2.5 mg/dL (1.8-2.4)
[2022-01-20 12:00] VITALS: BP 143/82
[2022-01-20 16:00] VITALS: BP 141/86
--- NOTE | 2022-01-20 18:36 | NUR ---
CABLE DISPATCHER CLOSING NOTES PATIENT LAYING IN BED. A/O X1. PATIENT ON OXYGEN THERAPY AT 3 LPM VIA NASAL CANULA; BREATHING EVEN AND UNLABORED; NO SOB DURING SHIFT. NO COMPLAINS OF PAIN OR DISCOMFORT NOTED. PATIENT ON TELE MONITOR WITH A CURRENT READING OF ST 109. IV ACCESS RFA G #22 SL. IV ACCESS PATENT AND INTACT. ALL NEEDS ATTENDED DURING THE DAY. SAFETY PRECAUTIONS IN PLACE; BED LOCKED AND AT LOWEST POSITION. SIDE RAILS UP X2. CALL LIGHT WITHIN REACH AT ALL TIMES. WILL ENDORSE TO CERTIFIED OPTICIAN NURSE FOR DEN.
--- NOTE | 2022-01-20 19:33 | NUR ---
RN OPENING NOTE PATIENT IN BED, AWAKE. A/O X 1 TAJIK SPEAKING, PATIENT IS CONFUSED. TELE MONITOR READS ST AT 105 BPM. FAMILY AT BEDSIDE. PATIENT HAS A RFA 20G- SALINE LOCKED AT THIS TIME. PATIENT CURRENTLY ON 3LPM VIA NC, TOLERATING WELL WITH NO SOB. NOT IN ANY APPARENT DISTRESS AT THIS TIME. SAFETY MEASURES IN PLACE: BED LOCKED AND IN LOWEST POSITION, CALL LIGHT WITHIN REACH, SIDE RAILS UP. WILL MONITOR PATIENT CLOSELY.
[2022-01-20 20:00] VITALS: BP 138/82
[2022-01-20] MEDS: CEFTRIAXONE 1 G in IV D5W 50 ML IV SCH (20:38)
[2022-01-21] VITALS: BP 138/86
[2022-01-21 04:00] VITALS: BP 136/76
[2022-01-21 06:42] LABS: BASOPHILS % (AUTO) 0.1 % (0.0-2.0); EOSINOPHILS % (AUTO) 0.3 % (0.0-6.0); HEMATOCRIT 33 % (33-45); HEMOGLOBIN 10.7 g/dL (11.5-14.8); LYMPHOCYTES # (AUTO) 1.8 K/uL (0.8-4.8); LYMPHOCYTES % (AUTO) 18.8 % (20.0-44.0); MEAN CORPUSCULAR HGB CONC 33 g/dl (31.0-36.0); MEAN CORPUSCULAR VOLUME 91 fL (82-100); MONOCYTES # (AUTO) 0.6 K/uL (0.1-1.30); MONOCYTES % (AUTO) 6.4 % (2.0-12.0); NEUTROPHILS # (AUTO) 7.2 K/uL (1.8-8.9); NEUTROPHILS % (AUTO) 74.4 % (43.0-81.0); PLATELET COUNT (AUTO) 251 K/uL (150-450); RED BLOOD CELL COUNT(AUTO) 3.61 MIL/uL (4.0-5.2); WHITE BLOOD COUNT (AUTO) 9.6 K/uL (4.3-11.0)
--- NOTE | 2022-01-21 06:46 | NUR ---
RN CLOSING NOTE PATIENT IN BED, ASLEEP. A/O X 1 FIJIAN SPEAKING, PATIENT IS CONFUSED. TELE MONITOR READS ST AT 105 BPM. FAMILY AT BEDSIDE. PATIENT HAS A RFA 20G SALINE LOCKED ONLY. PATIENT CURRENTLY ON 3LPM VIA NC, TOLERATING WELL WITH NO RESPIRATORY DISTRESS, COUGH STILL PRESENT. TELE MONITOR READS SR 97 BPM. SAFETY MEASURES IN PLACE: BED LOCKED AND IN LOWEST POSITION, CALL LIGHT WITHIN REACH, SIDE RAILS UP. ALL NEEDS MET AND ATTENDED. ALL ORDERS CARRIED OUT. WILL ENDORSE TO DAY SHIFT NURSE FOR DEN.
[2022-01-21] MEDS: IPRATROPIUM/ALBUTEROL INHALER IH SCH ×4 (07:35→12:40)
--- NOTE | 2022-01-21 07:36 | NUR ---
ELECTRICIAN RESEARCH OPENING NOTES PATIENT IN BED, SLEEPING, AROUSABLE BY NAME TO A/O X 1. SAUDI ARABIAN SPEAKING, PATIENT IS CONFUSED. TELE MONITOR READS NSR 90s-100s. PATIENT HAS A RFA 22G SALINE LOCKED ONLY. PATIENT CURRENTLY ON 3LPM VIA NC, TOLERATING WELL WITH NO RESPIRATORY DISTRESS, COUGH STILL PRESENT. SAFETY MEASURES IN PLACE: BED LOCKED AND IN LOWEST POSITION, CALL LIGHT WITHIN REACH, SIDE RAILS UP. WILL CONTINUE TO MONITOR.
[2022-01-21 08:00] VITALS: BP 156/97
[2022-01-21] MEDS: ENSURE ENLIVE CHOC 237 ML CAN PO SCH ×3 (08:09→17:28)
[2022-01-21] MEDS: METOPROLOL TARTRATE 25 MG TABLET PO SCH ×2 (08:44→20:25)
[2022-01-21] MEDS: Z GUARD REMEDY 4 OZ OINT TP SCH (08:45)
[2022-01-21] MEDS: DEXAMETHASONE SOD PHOSPHATE 10 MG/ML VIAL IV SCH (08:45)
[2022-01-21] MEDS: THERAHONEY GEL 1.5 OZ TUBE TP SCH (11:05)
[2022-01-21 12:00] VITALS: BP 149/76
[2022-01-21 12:09] LABS: CALCIUM, SERUM 9.4 mg/dL (8.5-10.1); MAGNESIUM 2.4 mg/dL (1.8-2.4); POTASSIUM 3.9 mmol/L (3.5-5.1)
[2022-01-21] MEDS ORDERED: LORAZEPAM 1 MG TABLET PO PRN (15:30)
[2022-01-21 16:00] VITALS: BP 139/54
[2022-01-21] MEDS: MECLIZINE HCL 12.5 MG TABLET PO SCH (17:47)
--- NOTE | 2022-01-21 18:21 | NUR ---
RN DISCHARGED NOTES PT DISCHARGED HOME IN STABLE CONDITION. A/O X4. ABLE TO MAKE NEEDS KNOWN. V/S TAKEN, STABLE AND RECORDED. ALL BELONGINGS ACCOUNTED FOR AND PT SIGNED BELONGINGS LIST. HOME MEDICATIONS HANDED TO PT. PHOTOS OF SKIN ISSUES TAKEN AND FILED IN HER CHART. IV ACCESS ON LAC REMOVED WITH NO ACTIVE BLEEDING NOTED, DRY PRESSURE DRESSING APPLIED AT SITE. NAME ARMBAND REMOVED. HEALTH TEACHINGS/DISCHARGED INSTRUCTIONS GIVEN TO PT AND VERBALIZED UNDERSTANDING. PT LEFT UNIT VIA WHEELCHAIR AT 1835 ACCOMPANIED BY CONSTANTINO RENE. PT'S DAUGHTER INOCENTE WILL TAKE PT'S HOME. MD AND CHARGE NURSE AWARE OF DISCHARGE. Addendum: 01/21/22 at 1836 by YANG CANO RN ERROR- IGNORE NOTE
--- NOTE | 2022-01-21 18:36 | NUR ---
ELASTIC ATTACHER COVERSTITCH CLOSING NOTE PATIENT LAYING IN BED A/O X 1. DIVEHI SPEAKING, PATIENT IS CONFUSED. TELE MONITOR READS NSR/ST FROM 80s-120s TODAY. PATIENT HAS A R FA 22G SALINE LOCK ONLY, FLUSHES WELL AND PATENT. PATIENT CURRENTLY ON 3 LPM O2 VIA NC, TOLERATING WELL WITH NO RESPIRATORY DISTRESS. SAFETY MEASURES IN PLACE: BED LOCKED AND IN LOWEST POSITION, CALL LIGHT WITHIN REACH, SIDE RAILS UP. WILL ENDORSE TO MOTHER REPAIRER FOR DEN.
[2022-01-21] MEDS ORDERED: ACETAMINOPHEN 325 MG TABLET PO PRN (19:00)
[2022-01-21] MEDS ORDERED: IV 1/2NS 1000 ML 1,000 ML IV ONE (19:00)
[2022-01-21] MEDS ORDERED: ACETAMINOPHEN W/ CODEINE#3 1 EA TABLET PO PRN (19:00)
--- NOTE | 2022-01-21 19:30 | NUR ---
ASSISTANT PROFESSOR OF FORESTRY OPENING NOTE RECEIVED PATIENT LAYING IN BED AWAKE. A/O X 1. FAROESE SPEAKING, PATIENT IS CONFUSED. ON 3 LPM VIA NC, TOLERATING WELL WITH NO SOB OR S/S OF RESPIRATORY DISTRESS. ON EXTERNAL JUVENILE COURT JUDGE READING NSR/ST FROM 80s-120s. IV ACCESS RFA 22 GAUGE RUNNING 1/2NS @70 ML/HR. SAFETY PRECAUTIONS IN PLACE. BED IN LOWEST LOCKED POSITION, HOB ELEVATED, SIDE RAILS UP X3, AND CALL LIGHT IN REACH. WILL CONTINUE WITH PLAN OF CARE.
[2022-01-21 20:07] VITALS: BP 131/84
[2022-01-22] VITALS: BP 148/84
[2022-01-22 03:34] VITALS: BP 149/86
--- NOTE | 2022-01-22 06:54 | NUR ---
KNOWLEDGE MANAGER CLOSING NOTE PATIENT LAYING IN BED AWAKE. A/O X 1. LIBYAN SPEAKING, PATIENT IS CONFUSED. ON 3 LPM VIA NC, TOLERATING WELL WITH NO SOB OR S/S OF RESPIRATORY DISTRESS. ON EXTERNAL COAGULATING BATH MIXER READING NSR/ST FROM 80s-120s. IV ACCESS RFA 22 GAUGE RUNNING 1/2NS @70 ML/HR. ALL NEEDS MET AT THIS TIME. SAFETY PRECAUTIONS IN PLACE AT ALL TIMES. BED IN LOWEST LOCKED POSITION, HOB ELEVATED, SIDE RAILS UP X3, AND CALL LIGHT IN REACH. WILL ENDORSE TO ONCOMING NURSE FOR DEN.
--- NOTE | 2022-01-22 07:55 | NUR ---
STERILE PROCESSING MANAGER OPENING NOTE RECEIVED PATIENT LAYING IN BED, A/O X 1, SYRIAN SPEAKING. PATIENT IS CONFUSED. ON 2 LPM VIA NC, TOLERATING WELL WITH NO SOB OR S/S OF RESPIRATORY DISTRESS. NO RESTRAINTS IN PLACE, PATIENT CALM AND RELAXED. PATIENT ON EXTERNAL OVEN STRIPPER READING NSR 109. IV ACCESS RFA 22 GAUGE RUNNING 1/2NS @70 ML/HR. SAFETY PRECAUTIONS IN PLACE: BED IN LOWEST LOCKED POSITION, HOB ELEVATED, SIDE RAILS UP X2, AND CALL LIGHT IN REACH. WILL CONTINUE TO MONITOR.
[2022-01-22] MEDS: ASPIRIN EC 81 MG TABLET.DR PO SCH (08:40)
[2022-01-22] MEDS: DEXAMETHASONE SOD PHOSPHATE 10 MG/ML VIAL IV SCH (08:41)
[2022-01-22] MEDS: METOPROLOL TARTRATE 25 MG TABLET PO SCH ×2 (08:42→20:40)
[2022-01-22] MEDS: ENSURE ENLIVE CHOC 237 ML CAN PO SCH ×3 (08:43→17:02)
[2022-01-22] MEDS: IPRATROPIUM/ALBUTEROL INHALER IH SCH ×5 (08:48→20:00)
[2022-01-22] MEDS: Z GUARD REMEDY 4 OZ OINT TP SCH (09:07)
[2022-01-22] MEDS: THERAHONEY GEL 1.5 OZ TUBE TP SCH (09:16)
[2022-01-22] MEDS: MECLIZINE HCL 12.5 MG TABLET PO SCH ×2 (09:22→17:15)
[2022-01-22] MEDS: LEVALBUTEROL HCL NEB 1.25 MG/0.5 ML VIAL.NEB NEB PRN (11:11)
[2022-01-22 12:00] VITALS: BP 136/97
[2022-01-22 16:00] VITALS: BP 129/75
--- NOTE | 2022-01-22 18:45 | NUR ---
BLEACHING SUPERVISOR CLOSING NOTE PATIENT LAYING IN BED, A/O X 1, BELARUSIAN SPEAKING, CONFUSED. ON 2 LPM VIA NC, TOLERATING WELL WITH NO SOB OR S/S OF RESPIRATORY DISTRESS. BILATERAL WRIST RESTRAINTS IN PLACE WITH CIRCULATION, MOTOR, AND SENSATION INTACT DISTALLY. PATIENT ON EXTERNAL ADVERTISING SALES ASSISTANT READING SINUS TACH 118. IV ACCESS RFA 22 G RUNNING 1/2NS @70 ML/HR. SAFETY PRECAUTIONS IN PLACE: BED IN LOWEST LOCKED POSITION, HOB ELEVATED, SIDE RAILS UP X2, AND CALL LIGHT IN REACH. WILL CONTINUE TO MONITOR.
--- NOTE | 2022-01-22 19:50 | NUR ---
LVN LPN OPENING NOTE PATIENT RESTING IN BED, ALERT/ORIENTED X 1, CONFUSED, MALIAN SPEAKING. PATIENT STABLE ON 2 LMP OF OXYGEN VIA NC, NO S/S OF DISTRESS OR SOB NOTED, BREATHING EVEN AND UNLABORED, SPO2: 97%. PATIENT ON EXTERNAL RENAL CASE MANAGER READING SINUS TACHYCARDIA, HR: 120. IV ACCESS ON LEFT FOREARM #22G INTACT AND SALINE LOCKED. BILATERAL SOFT WRIST RESTRAINTS ON PATIENT, RELEASED TO CHECK CIRCULATION AND PROVIDED FLUIDS AND HYGIENE CARE. SAFETY MEASURES IN PLACE: CALL LIGHT WITHIN REACH, SIDE RAILS UP X 3, BED LOCKED IN LOW POSITION, HOB ELEVATED, BED ALARM ON. WILL CONTINUE TO MONITOR PATIENT
[2022-01-22 20:00] VITALS: BP 133/83
[2022-01-23] VITALS: BP 124/66
[2022-01-23] MEDS: IPRATROPIUM/ALBUTEROL INHALER IH SCH ×4 (01:23→20:13)
[2022-01-23 05:00] VITALS: BP 148/76
--- NOTE | 2022-01-23 07:11 | NUR ---
TEST CONSULTANT CLOSING NOTE PATIENT RESTING IN BED, ALERT/ORIENTED X 1. PT STABLE ON 2 LPM OF OXYGEN VIA NASAL CANNULA, NO S/S OF DISTRESS OR SOB NOTED, BREATHING EVEN AND UNLABORED. PATIENT ON EXTERNAL WORK AND FAMILY LIFE CONSULTANT READING SINUS RHYTHM, HR: 80. BILATERAL WRIST RESTRAINTS ON PATIENT, RELEASED Q2H TO PROVIDE CARE AND CHECK CIRCULATION. MEDICATIONS GIVEN ORDERED, PT NEEDS MET THROUGHOUT SHIFT. FLUIDS PROVIDED TO PATIENT AND PATIENT TURNED Q2H THROUGHOUT SHIFT. SAFETY MEASURES IN PLACE: CALL LIGHT WITHIN REACH, SIDE RAILS UP X 3, BED LOCKED IN LOW POSITIOIN, HOB ELEVATED, BED ALARM ON. WILL ENDORSE TO DAY SHIFT NURSE FOR CONTINUITY OF CARE
--- NOTE | 2022-01-23 07:27 | NUR ---
PLANTING MACHINE CREWMAN OPENING NOTE RECEIVED PATIENT RESTING IN BED, ALERT/ORIENTED X 1, CONFUSED, YORUBA SPEAKING. PATIENT IS BREATHING EVENLY AND NONLABORED STABLE ON 2 L OF OXYGEN VIA NC, NO S/S OF DISTRESS OR SOB NOTED, PATIENT ON EXTERNAL PET CARE WORKER. IV ACCESS ON LEFT FOREARM #22G INTACT AND SALINE LOCKED. BILATERAL SOFT WRIST RESTRAINTS ON PATIENT, RELEASED TO CHECK CIRCULATION AND PROVIDED FLUIDS AND HYGIENE CARE. WILL CONTINUE TO MONITOR THROUGHOUT SHIFT. SAFETY MEASURES IN PLACE: CALL LIGHT WITHIN REACH, SIDE RAILS UP X 3, BED LOCKED IN LOW POSITION, HOB ELEVATED, BED ALARM ON. WILL CONTINUE TO MONITOR
[2022-01-23 08:00] VITALS: BP 128/94
[2022-01-23] MEDS: ASPIRIN EC 81 MG TABLET.DR PO SCH (08:48)
[2022-01-23] MEDS: MECLIZINE HCL 12.5 MG TABLET PO SCH ×2 (08:48→16:10)
[2022-01-23] MEDS: ENSURE ENLIVE CHOC 237 ML CAN PO SCH ×3 (08:49→16:10)
[2022-01-23] MEDS: METOPROLOL TARTRATE 25 MG TABLET PO SCH ×2 (08:49→20:56)
[2022-01-23] MEDS: Z GUARD REMEDY 4 OZ OINT TP SCH (08:49)
[2022-01-23] MEDS: THERAHONEY GEL 1.5 OZ TUBE TP SCH (08:49)
[2022-01-23] MEDS: DEXAMETHASONE SOD PHOSPHATE 10 MG/ML VIAL IV SCH (08:49)
[2022-01-23 12:00] VITALS: BP_SYST 148
[2022-01-23 16:00] VITALS: BP 128/74
--- NOTE | 2022-01-23 18:27 | NUR ---
ACCOUNT EXECUTIVE KEY ACCOUNTS CLOSING NOTE PATIENT RESTING IN BED, ALERT/ORIENTED X 1, CONFUSED, PERUVIAN SPEAKING. 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 IV ACCESS ON LEFT FOREARM #22G INTACT AND SALINE LOCKED. BILATERAL SOFT WRIST RESTRAINTS ON PATIENT, RELEASED TO CHECK CIRCULATION AND PROVIDED FLUIDS AND HYGIENE CARE. MONITORING DONE PER PROTOCOL. ALL MEDICATIONS GIVEN ORDERED. PATIENT TURNED AND REPOSITIONED Q2 HRS. SAFETY MEASURES IN PLACE: CALL LIGHT WITHIN REACH, SIDE RAILS UP X 3, BED LOCKED IN LOW POSITION, HOB ELEVATED, BED ALARM ON. WILL ENDORSE TO ONCOMING SHIFT
[2022-01-23 20:00] VITALS: BP 134/74
[2022-01-23] MEDS ORDERED: POLYETHYLENE GLYCOL 3350 17 GM POWD.PACK PO ONE (20:00)
--- NOTE | 2022-01-23 20:01 | NUR ---
IN SHOP SERVICE TECHNICIAN NOTE PATIENT FAMILY STATED PATIENT HAS BEEN COMPLAINING OF CONSTIPATION. NOTIFIED PEER FINANCIAL COUNSELOR MD WITH NEW ORDER FOR COLACE 100 MG PO DAILY AND MIRALAX PO X 1 TIME, ORDER CONFIRMED AND CARRIED OUT
--- NOTE | 2022-01-23 20:08 | NUR ---
LUMBER STRAIGHTENER NOTE PER PATIENT FAMILY, PATIENT REPORTING 4/10 ABDOMINAL PAIN. TYLENOL ES 500 MG PO GIVEN ORDERED. WILL CONTINUE TO MONITOR PATIENT
[2022-01-23] MEDS: ACETAMINOPHEN ES 500 MG TABLET PO PRN (20:09)
--- NOTE | 2022-01-23 20:29 | NUR ---
RADIOGRAPHY TECHNICIAN OPENING NOTE PATIENT AWAKE IN BED WITH FAMILY AT BEDSIDE, ALERT/ORIENTED X 1-2, AMHARIC SPEAKING. PATIENT STABLE ON 2 LMP OF OXYGEN VIA NC, NO S/S OF DISTRESS OR SOB NOTED, BREATHING EVEN AND UNLABORED. PATIENT ON EXTERNAL MDM SR READING SINUS TACHYCARDIA, HR: 103. IV ACCESS ON LEFT FOREARM #22G INTACT AND SALINE LOCKED. BILATERAL SOFT WRIST RESTRAINTS ON PATIENT, RELEASED TO CHECK CIRCULATION AND PROVIDED FLUIDS AND HYGIENE CARE. SAFETY MEASURES IN PLACE: CALL LIGHT WITHIN REACH, SIDE RAILS UP X 3, BED LOCKED IN LOW POSITION, HOB ELEVATED, BED ALARM ON. WILL CONTINUE TO MONITOR PATIENT
[2022-01-24] VITALS: BP 156/87
[2022-01-24] MEDS: IPRATROPIUM/ALBUTEROL INHALER IH SCH ×3 (02:00→12:53)
[2022-01-24 04:00] VITALS: BP 149/90
--- NOTE | 2022-01-24 06:52 | NUR ---
HI TEACHER CLOSING NOTE PATIENT RESTING IN BED, ALERT/ORIENTED X 1. PT STABLE ON 2 LPM OF OXYGEN VIA NASAL CANNULA, NO S/S OF DISTRESS OR SOB NOTED, BREATHING EVEN AND UNLABORED. PATIENT ON EXTERNAL EDUCATIONAL PROGRAM ASSISTANT READING SINUS RHYTHM TO SINUS TACHY, HR: 102. BILATERAL WRIST RESTRAINTS REMOVED FOR NOW PATIENT HAS BEEN CALM AND NOT REMOVING OXYGEN OR IV LINES. MEDICATIONS GIVEN ORDERED, PT NEEDS MET THROUGHOUT SHIFT. FLUIDS PROVIDED TO PATIENT AND PATIENT TURNED Q2H THROUGHOUT SHIFT. SAFETY MEASURES IN PLACE: CALL LIGHT WITHIN REACH, SIDE RAILS UP X 3, BED LOCKED IN LOW POSITION, HOB ELEVATED, BED ALARM ON. WILL ENDORSE TO DAY SHIFT NURSE FOR CONTINUITY OF CARE
[2022-01-24 07:06] LABS: CALCIUM, SERUM 9.3 mg/dL (8.5-10.1); CARBON DIOXIDE 28 mmol/L (21-32); CHLORIDE 104 mmol/L (98-107); CREATININE 1.8 mg/dL (0.6-1.3); GLUCOSE 168 mg/dL (74-106); POTASSIUM 4.7 mmol/L (3.5-5.1); SODIUM SERUM 141 mmol/L (136-145); UREA NITROGEN, BLOOD 70 mg/dL (7-18)
[2022-01-24 07:16] LABS: BASOPHILS % (AUTO) 0.1 % (0.0-2.0); EOSINOPHILS % (AUTO) 1.4 % (0.0-6.0); HEMATOCRIT 35 % (33-45); HEMOGLOBIN 11.3 g/dL (11.5-14.8); LYMPHOCYTES # (AUTO) 1.7 K/uL (0.8-4.8); LYMPHOCYTES % (AUTO) 11.3 % (20.0-44.0); MEAN CORPUSCULAR HGB CONC 32 g/dl (31.0-36.0); MEAN CORPUSCULAR VOLUME 92 fL (82-100); MONOCYTES # (AUTO) 0.7 K/uL (0.1-1.30); MONOCYTES % (AUTO) 4.9 % (2.0-12.0); NEUTROPHILS # (AUTO) 12.2 K/uL (1.8-8.9); NEUTROPHILS % (AUTO) 82.3 % (43.0-81.0); PLATELET COUNT (AUTO) 149 K/uL (150-450); RED BLOOD CELL COUNT(AUTO) 3.84 MIL/uL (4.0-5.2); WHITE BLOOD COUNT (AUTO) 14.8 K/uL (4.3-11.0)
--- NOTE | 2022-01-24 07:30 | NUR ---
DIRECTOR OF PSYCHIATRY NOTES PT IN BED, ASLEEP, EASY TO AROUSE, NO SIGN OF PAIN OR DISTRESS, CALL LIGHT WITHIN REACH, KEPT TOOL POLISHER BED.
[2022-01-24 08:00] VITALS: BP 143/80
[2022-01-24] MEDS: ASPIRIN EC 81 MG TABLET.DR PO SCH (08:17)
[2022-01-24] MEDS: DOCUSATE SODIUM 100 MG CAPSULE PO SCH (08:17)
[2022-01-24] MEDS: METOPROLOL TARTRATE 25 MG TABLET PO SCH ×2 (08:18→20:32)
[2022-01-24] MEDS: MECLIZINE HCL 12.5 MG TABLET PO SCH ×2 (08:19→16:29)
[2022-01-24] MEDS: THERAHONEY GEL 1.5 OZ TUBE TP SCH (08:21)
[2022-01-24] MEDS: ENSURE ENLIVE CHOC 237 ML CAN PO SCH ×3 (08:21→16:39)
[2022-01-24] MEDS: Z GUARD REMEDY 4 OZ OINT TP SCH (11:00)
[2022-01-24] MEDS ORDERED: MAGNESIUM HYDROXIDE 30 ML UDC PO PRN (12:00)
--- NOTE | 2022-01-24 12:01 | NUR ---
OB/GYN NURSE NOTES PT IN BED, SEEN AND EXAMINED BY DR. MOSES, ORDERS RECEIVED FOR STOOL SOFTENERS, NOTED AND CARRIED OUT.
[2022-01-24] MEDS: PIPERACILLIN /TAZOBACTAM 2.25 G in IV D5W 50 ML IV SCH ×2 (12:59→20:14)
[2022-01-24] MEDS: IV NS 0.9% 500 ML IV SCH ×2 (12:59→20:13)
[2022-01-24] MEDS: BISACODYL SUPP (10 MG) 10 MG/SUPP.RECT SUPP.RECT RC PRN (13:25)
[2022-01-24] MEDS ORDERED: PIPERACILLIN /TAZOBACTAM 3.375 G in IV D5W 50 ML IV SCH (18:00)
--- NOTE | 2022-01-24 18:57 | NUR ---
RN CLOSING NOTE PATIENT IN BED, ALERT AND ORIENTED X1. ON OXYGEN @ 2LPM VIA NASAL CANULA. HOB ELEVATED @ 45 DEGREES. RESPIRATION EVEN AND UNLABORED. RE-APPLIED BILATERAL WRIST RESTRAINTS. MONITORED BILATERAL EXTREMITIES FOR CIRCULATION AND SKIN INTEGRITY. ALL MEDS GIVEN AND WELL TOLERATED. NO ASE NOTED. ALL NEEDS ATTENDED. SIDE RAILS UP, C/L WITHIN REACH. BED LOCKED IN LOW POSITION.
--- NOTE | 2022-01-24 19:30 | NUR ---
WOOD STAINER OPENING NOTE RECEIVED PATIENT AWAKE IN BED. A/O X1-2. ON OXYGEN @ 2LPM VIA NASAL CANULA. NO SOB OR S/S OF RESPIRATORY DISTRESS. ON EXTERNAL HOUSE OFFICER READING ST @ 110 BPM. IV ACCESS LAFA 22 GAUGE RUNNING NS @ 65 ML/HR, INTACT AND PATENT. SAFETY PRECAUTIONS IN PLACE. BED IN LOWEST LOCKED POSITION, HOB ELEVATED, SIDE RAILS UP X3, AND CALL LIGHT IN REACH. WILL CONTINUE WITH PLAN OF CARE.
[2022-01-24 21:43] VITALS: BP 145/85
[2022-01-25 00:16] VITALS: BP 142/72
[2022-01-25] MEDS: IV NS 0.9% 500 ML IV SCH ×3 (03:54→20:49)
[2022-01-25] MEDS: PIPERACILLIN /TAZOBACTAM 2.25 G in IV D5W 50 ML IV SCH ×3 (04:04→20:50)
[2022-01-25 04:31] VITALS: BP 126/76
--- NOTE | 2022-01-25 06:44 | NUR ---
BASKETBALL COACH CLOSING NOTE PATIENT AWAKE IN BED. A/O X1-2. ON OXYGEN @ 2LPM VIA NASAL CANULA. NO SOB OR S/S OF RESPIRATORY DISTRESS. ON EXTERNAL CUSTOM PROTECTION OFFICER READING ST @ 108 BPM. IV ACCESS LFA 22 GAUGE RUNNING NS @ 65 ML/HR, INTACT AND PATENT. ALL NEEDS MET AT THIS TIME. SAFETY PRECAUTIONS IN PLACE AT ALL TIMES. BED IN LOWEST LOCKED POSITION, HOB ELEVATED, SIDE RAILS UP X3, AND CALL LIGHT IN REACH. WILL ENDORSE TO ONCOMING SHIFT FOR DEN.
[2022-01-25 06:48] LABS: BASOPHILS % (AUTO) 0.2 % (0.0-2.0); HEMATOCRIT 33 % (33-45); HEMOGLOBIN 10.8 g/dL (11.5-14.8); LYMPHOCYTES # (AUTO) 1.4 K/uL (0.8-4.8); LYMPHOCYTES % (AUTO) 9.8 % (20.0-44.0); MEAN CORPUSCULAR HGB CONC 33 g/dl (31.0-36.0); MEAN CORPUSCULAR VOLUME 91 fL (82-100); MONOCYTES # (AUTO) 0.8 K/uL (0.1-1.30); NEUTROPHILS # (AUTO) 11.7 K/uL (1.8-8.9); PLATELET COUNT (AUTO) 126 K/uL (150-450); RED BLOOD CELL COUNT(AUTO) 3.61 MIL/uL (4.0-5.2); WHITE BLOOD COUNT (AUTO) 14.1 K/uL (4.3-11.0)
[2022-01-25 07:28] LABS: CALCIUM, SERUM 8.7 mg/dL (8.5-10.1); CARBON DIOXIDE 28 mmol/L (21-32); CHLORIDE 107 mmol/L (98-107); GLUCOSE 163 mg/dL (74-106); POTASSIUM 4.4 mmol/L (3.5-5.1); SODIUM SERUM 143 mmol/L (136-145); UREA NITROGEN, BLOOD 68 mg/dL (7-18)
--- NOTE | 2022-01-25 07:40 | NUR ---
RN OPENING NOTES Patient seen comfortably lying in bed, no SOB, no apparent distress noted, breathing even and unlabored, no grimacing. Call light left within reach, safety precautions in place, brakes locked, side rails up X 2, will monitor closely for any changes.
[2022-01-25] MEDS: DOCUSATE SODIUM 100 MG CAPSULE PO SCH (08:33)
[2022-01-25] MEDS: ASPIRIN EC 81 MG TABLET.DR PO SCH (08:33)
[2022-01-25] MEDS: ENSURE ENLIVE CHOC 237 ML CAN PO SCH ×3 (08:34→17:23)
[2022-01-25] MEDS: METOPROLOL TARTRATE 25 MG TABLET PO SCH ×2 (08:34→20:50)
[2022-01-25] MEDS: MECLIZINE HCL 12.5 MG TABLET PO SCH ×2 (08:40→17:22)
[2022-01-25] MEDS: IPRATROPIUM/ALBUTEROL INHALER IH SCH ×3 (09:47→20:50)
[2022-01-25] MEDS: Z GUARD REMEDY 4 OZ OINT TP SCH (09:53)
[2022-01-25] MEDS: THERAHONEY GEL 1.5 OZ TUBE TP SCH (09:54)
[2022-01-25] MEDS: LEVALBUTEROL HCL NEB 1.25 MG/0.5 ML VIAL.NEB NEB PRN (16:46)
[2022-01-25] MEDS: ACETAMINOPHEN ES 500 MG TABLET PO PRN (17:22)
--- NOTE | 2022-01-25 18:24 | NUR ---
RN CLOSING NOTES Patient in bed, respirations even and unlabored, no shortness of breath, remained afebrile during shift, denies any pain or discomfort at this time, no dizziness, no palpitations, no chest pain. Patient has an order for soft wrist restraint for safety, visual check rendered every 15 minutes, patient repositioned frequently, no s/s of circulation impairment noted at this time, skin warm to touch, no pallor or cyanosis noted. Patient has an order for IV fluids (NS at 65ml/hr) IV site on left forearm, patent, intact and IV fluids infusing well, no swelling, no redness, no c/o pain or discomfort at site. All due medications given per MD order, tolerating well. All needs anticipated, kept clean and dry, aspiration precautions observed at all times, safety precautions in place, frequent visual checks done, repositioning done. brakes locked, side rails up X 2, call light left within reach, will endorse to next shift for continuity of care.
--- NOTE | 2022-01-25 19:36 | NUR ---
RN OPENING NOTES: RECEIVED REPORT AT PATIENT'S BEDSIDE. PATIENT IN BED, SUPINE POSITION, EYES CLOSED, RR EVEN AND UNLABORED. EASILY AROUSED BY VOICE COMMAND. ALERT AND ORIENTED TO PERSON. NAD AND STABLE AT THIS TIME. HEELS FLOATING OVER PILLOWS. DENIES PAIN. SOFT WRIST RESTRAINTS IN PLACE, TRIAL RELEASE PER ORDER, SKIN INSPECTION COMPLETE AND WNL. IV ACCESS TO L FA 22 G INFUSING NS @ 65ML/HR. NO S/SX OF INFILTRATION, REDNESS OR DISCOMFORT. DRESSING C/D/I. SAFETY, ASPIRATION, FALL AND SKIN/WOUND PRECAUTIONS IN PLACE; BED IN LOW/LOCKED POSITION, SIDE RAILS UP X2, HOB ELEVATED TO SEMI-FOWLERS POSITION, CALL LIGHT WITHIN REACH.
[2022-01-25 20:00] VITALS: BP 140/77
--- NOTE | 2022-01-25 23:27 | NUR ---
URINE SAMPLE OBTAINED. URINE YELLOW AND SLIGHTLY CLOUDY. NO FOUL ODOR NOTED. SAMPLE PLACED IN SPECIMEN REFRIGERATOR, LAB NOTIFIED FOR CUSTOMER ASSISTANT.
[2022-01-26] VITALS: BP 130/72
[2022-01-26 00:30] LABS: BILIRUBIN,URINE NEGATIVE (NEGATIVE); COLOR,URINE YELLOW (YELLOW); LEUKOCYTE ESTERASE ,URINE SMALL (NEGATIVE); NITRITE, URINE POSITIVE (NEGATIVE); PH,URINE 5.5 (5.0-8.0); PROTEIN,URINE NEGATIVE (NEGATIVE); UGLUCOSE NEGATIVE (NEGATIVE); UROBILINOGEN,URINE 0.2 EU/dL (0.2)
[2022-01-26 00:55] LABS: CREATININE, URINE 59.6 MG/DL (30.0-125.0); URINE TOTAL PROTEIN 43.7 mg/dL (0-11.9)
[2022-01-26] MEDS: IPRATROPIUM/ALBUTEROL INHALER IH SCH ×4 (01:55→20:01)
[2022-01-26] MEDS: IV NS 0.9% 500 ML IV SCH (03:22)
[2022-01-26 04:00] VITALS: BP 130/75
[2022-01-26 04:04] VITALS: BP 130/75
--- NOTE | 2022-01-26 04:05 | NUR ---
LOW GRADE TEMP 99.1. COOLING MEASURES IMPLEMENTED. PATIENT IN NAD AND STABLE AT THIS TIME.
[2022-01-26] MEDS: PIPERACILLIN /TAZOBACTAM 2.25 G in IV D5W 50 ML IV SCH ×3 (04:11→20:01)
--- NOTE | 2022-01-26 05:21 | NUR ---
LEAD MACHINIST CLOSING NOTES: PATIENT IN BED, SUPINE POSITION, EYES CLOSED, RR EVEN AND UNLABORED. EASILY AROUSED BY VOICE COMMAND. ALERT AND ORIENTED TO PERSON AND PLACE. TELEMETRY READING SR 86. NAD AND STABLE AT THIS TIME. REASSESSED TEMP. 98.8. HEELS FLOATING OVER PILLOWS. DENIES PAIN. SOFT WRIST RESTRAINTS IN PLACE, TRIAL RELEASE PER ORDER, SKIN INSPECTION COMPLETE AND WNL. REPOSITIONED Q2 HRS. IV ACCESS TO L FA 22 G INFUSING NS @ 65ML/HR. NO S/SX OF INFILTRATION, REDNESS OR DISCOMFORT. DRESSING C/D/I. SAFETY, ASPIRATION, FALL AND SKIN/WOUND PRECAUTIONS IN PLACE; BED IN LOW/LOCKED POSITION, SIDE RAILS UP X2, HOB ELEVATED TO SEMI-FOWLERS POSITION, CALL LIGHT WITHIN REACH.
--- NOTE | 2022-01-26 07:43 | NUR ---
RN OPENING NOTES Patient seen comfortably lying in bed, no SOB, no apparent distress noted, breathing even and unlabored, denies any pain or discomfort at this time, no grimacing. Call light left within reach, safety precautions in place, brakes locked, side rails up X 2, will monitor closely for any changes.
[2022-01-26 07:55] LABS: BACTERIA,URINE Moderate /HPF (None Seen); SQUAMOUS EPITHELIAL CELL,UR Few /HPF (None Seen)
[2022-01-26 07:56] LABS: YEAST,URINE Moderate /HPF (None Seen)
[2022-01-26 08:08] LABS: EOSINOPHIL,URINE None Seen
[2022-01-26] MEDS: ASPIRIN EC 81 MG TABLET.DR PO SCH (08:52)
[2022-01-26] MEDS: DOCUSATE SODIUM 100 MG CAPSULE PO SCH (08:52)
[2022-01-26] MEDS: ENSURE ENLIVE CHOC 237 ML CAN PO SCH ×3 (08:52→17:57)
[2022-01-26] MEDS: METOPROLOL TARTRATE 25 MG TABLET PO SCH ×2 (08:52→21:46)
[2022-01-26] MEDS: Z GUARD REMEDY 4 OZ OINT TP SCH (08:56)
[2022-01-26] MEDS: MECLIZINE HCL 12.5 MG TABLET PO SCH ×2 (08:56→17:57)
[2022-01-26 09:28] LABS: BASOPHILS % (AUTO) 0.2 % (0.0-2.0); EOSINOPHILS % (AUTO) 1.7 % (0.0-6.0); HEMATOCRIT 31 % (33-45); LYMPHOCYTES # (AUTO) 1.3 K/uL (0.8-4.8); LYMPHOCYTES % (AUTO) 10.7 % (20.0-44.0); MEAN CORPUSCULAR HGB CONC 32 g/dl (31.0-36.0); MEAN CORPUSCULAR VOLUME 92 fL (82-100); MONOCYTES # (AUTO) 0.7 K/uL (0.1-1.30); MONOCYTES % (AUTO) 5.8 % (2.0-12.0); NEUTROPHILS # (AUTO) 9.7 K/uL (1.8-8.9); NEUTROPHILS % (AUTO) 81.6 % (43.0-81.0); PLATELET COUNT (AUTO) 121 K/uL (150-450); RED BLOOD CELL COUNT(AUTO) 3.37 MIL/uL (4.0-5.2); WHITE BLOOD COUNT (AUTO) 11.9 K/uL (4.3-11.0)
[2022-01-26 09:50] LABS: ALANINE AMINOTRANSFERASE 24 U/L (12-78); ALBUMIN 2.6 g/dL (3.4-5.0); ALKALINE PHOSPHATASE 35 U/L (46-116); ASPARTATE AMINOTRANSFERASE 13 U/L (15-37); BILIRUBIN,TOTAL 0.3 mg/dL (0.2-1.0); CALCIUM, SERUM 8.3 mg/dL (8.5-10.1); CARBON DIOXIDE 25 mmol/L (21-32); CHLORIDE 111 mmol/L (98-107); CREATININE 1.9 mg/dL (0.6-1.3); GLUCOSE 144 mg/dL (74-106); MAGNESIUM 2.3 mg/dL (1.8-2.4); PHOSPHORUS 3.7 mg/dL (2.5-4.9); POTASSIUM 3.8 mmol/L (3.5-5.1); SODIUM SERUM 145 mmol/L (136-145); TOTAL PROTEIN, SERUM 6.4 g/dL (6.4-8.2); UREA NITROGEN, BLOOD 63 mg/dL (7-18)
[2022-01-26] MEDS ORDERED: IV NS 0.9% 1,000 ML IV ONE (10:00)
[2022-01-26] MEDS: THERAHONEY GEL 1.5 OZ TUBE TP SCH (10:02)
[2022-01-26] MEDS: IV NS 0.9% 1,000 ML IV PRN (15:36)
--- NOTE | 2022-01-26 18:28 | NUR ---
RN CLOSING NOTES Patient in bed, no apparent distress noted, breathing even and unlabored, no shortness of breath, remained afebrile during shift, no chest pain, no dizziness, no palpitations, denies any pain or discomfort at this time. Patient has an order for IV fluids (NS at 75ml/hr) IV site on left forearm, patent, intact and IV fluids infusing well, no swelling, no redness, no c/o pain or discomfort at site. All due medications given per MD order, tolerating well. Due medications given per MD order, tolerating well. Patient has an order for soft wrist restraint for safety, visual check rendered every 15 minutes, patient repositioned frequently, no s/s of circulation impairment noted at this time, skin warm to touch, no pallor or cyanosis noted. Wound care rendered on right lateral foot, and site kept offloaded. Aspiration precautions observed at all times, kept clean and dry, all needs anticipated, safety precautions in place, frequent visual checks done, repositioning done. brakes locked, side rails up X 2, call light left within reach, will endorse to next shift for continuity of care.
--- NOTE | 2022-01-26 19:40 | NUR ---
TELE/RN OPENING NOTE RECEIVED PATIENT RESTING IN BED. AWAKE, ALERT AND ORIENTED X 1. ABLE TO MAKE NEEDS KNOWN. DENIES PAIN AT THIS TIME. CONTINUES ON O2 3L VIA NC WITH NO S/SX OF RESPIRATORY DISTRESS NOTED. IV ACCESS TO LEFT FOREARM #22G INTACT AND PATENT. CONTINUES ON IVF NS @ 75ML/HR. CONTINUES ON IV ABX. CONTINUES ON PUREED DIET WITH NO S/SX OF ASPIRATION NOTED. DRESSING TO RIGHT FOOT WOUND CLEAN, DRY AND INTACT. CONTINUES ON BILATERAL SOFT WRIST RESTRAINTS WITH POSITIVE CIRCULATION AND NO SKIN ISSUES NOTED. CALL LIGHT WITHIN REACH. ASPIRATION, FALL AND SAFETY PRECAUTIONS MAINTAINED. WILL CONTINUE TO MONITOR.
[2022-01-26 20:38] VITALS: BP 146/83
[2022-01-27 00:07] VITALS: BP 124/75
[2022-01-27] MEDS: IPRATROPIUM/ALBUTEROL INHALER IH SCH (02:06)
[2022-01-27] MEDS: IV NS 0.9% 1,000 ML IV PRN (04:01)
[2022-01-27] MEDS: PIPERACILLIN /TAZOBACTAM 2.25 G in IV D5W 50 ML IV SCH ×2 (04:01→12:01)
[2022-01-27 04:26] VITALS: BP 132/83
--- NOTE | 2022-01-27 06:35 | NUR ---
TELE/RN CLOSING NOTE PATIENT CURRENTLY SLEEPING IN BED. ALERT AND ORIENTED X 1. ABLE TO MAKE NEEDS KNOWN. DENIES PAIN AT THIS TIME. CONTINUES ON O2 3L VIA NC WITH NO S/SX OF RESPIRATORY DISTRESS NOTED. IV ACCESS TO LEFT FOREARM #22G INTACT AND PATENT. CONTINUES ON IVF NS @ 75ML/HR. CONTINUES ON IV ABX. CONTINUES ON PUREED DIET WITH NO S/SX OF ASPIRATION NOTED. DRESSING TO RIGHT FOOT WOUND CLEAN, DRY AND INTACT. CONTINUES ON BILATERAL SOFT WRIST RESTRAINTS WITH POSITIVE CIRCULATION AND NO SKIN ISSUES NOTED. TELE MONITOR IN PLACE WITH CURRENT READING SR HR 87. CALL LIGHT WITHIN REACH. ASPIRATION, FALL AND SAFETY PRECAUTIONS MAINTAINED. WILL ENDORSE PLAN OF CARE TO ONCOMING SHIFT.
[2022-01-27 07:30] LABS: BASOPHILS % (AUTO) 0.3 % (0.0-2.0); EOSINOPHILS % (AUTO) 3.3 % (0.0-6.0); HEMATOCRIT 29 % (33-45); HEMOGLOBIN 9.3 g/dL (11.5-14.8); LYMPHOCYTES # (AUTO) 1.3 K/uL (0.8-4.8); LYMPHOCYTES % (AUTO) 15.6 % (20.0-44.0); MEAN CORPUSCULAR HGB CONC 33 g/dl (31.0-36.0); MEAN CORPUSCULAR VOLUME 91 fL (82-100); MONOCYTES # (AUTO) 0.6 K/uL (0.1-1.30); MONOCYTES % (AUTO) 6.8 % (2.0-12.0); NEUTROPHILS # (AUTO) 6.1 K/uL (1.8-8.9); PLATELET COUNT (AUTO) 117 K/uL (150-450); RED BLOOD CELL COUNT(AUTO) 3.11 MIL/uL (4.0-5.2); WHITE BLOOD COUNT (AUTO) 8.2 K/uL (4.3-11.0)
[2022-01-27 08:00] VITALS: BP 131/66
[2022-01-27] MEDS: ASPIRIN EC 81 MG TABLET.DR PO SCH (08:26)
[2022-01-27] MEDS: MECLIZINE HCL 12.5 MG TABLET PO SCH ×2 (08:26→17:24)
[2022-01-27] MEDS: METOPROLOL TARTRATE 25 MG TABLET PO SCH (08:26)
[2022-01-27] MEDS: DOCUSATE SODIUM 100 MG CAPSULE PO SCH (08:26)
[2022-01-27] MEDS: Z GUARD REMEDY 4 OZ OINT TP SCH (08:27)
[2022-01-27] MEDS: THERAHONEY GEL 1.5 OZ TUBE TP SCH (08:27)
[2022-01-27] MEDS: ENSURE ENLIVE CHOC 237 ML CAN PO SCH ×3 (08:27→17:24)
[2022-01-27 08:32] LABS: ALANINE AMINOTRANSFERASE 25 U/L (12-78); ALBUMIN 2.4 g/dL (3.4-5.0); ALKALINE PHOSPHATASE 31 U/L (46-116); ASPARTATE AMINOTRANSFERASE 16 U/L (15-37); BILIRUBIN,TOTAL 0.3 mg/dL (0.2-1.0); CALCIUM, SERUM 8.2 mg/dL (8.5-10.1); CARBON DIOXIDE 25 mmol/L (21-32); CHLORIDE 112 mmol/L (98-107); CREATININE 1.7 mg/dL (0.6-1.3); GLUCOSE 125 mg/dL (74-106); MAGNESIUM 2.3 mg/dL (1.8-2.4); PHOSPHORUS 2.8 mg/dL (2.5-4.9); POTASSIUM 3.6 mmol/L (3.5-5.1); SODIUM SERUM 145 mmol/L (136-145); UREA NITROGEN, BLOOD 52 mg/dL (7-18)
[2022-01-27 12:00] VITALS: BP 113/67
[2022-01-27] MEDS ORDERED: DOCU100C36 PO (12:27)
[2022-01-27] MEDS ORDERED: METO25TA20 PO (12:27)
[2022-01-27] MEDS ORDERED: LACT-54 PO (12:27)
[2022-01-27] MEDS ORDERED: LEVA1.2524 NEB (12:27)
[2022-01-27] MEDS ORDERED: CEFT1VIA15 IV (12:27)
[2022-01-27] MEDS: BISACODYL SUPP (10 MG) 10 MG/SUPP.RECT SUPP.RECT RC PRN (12:54)
[2022-01-27 16:00] VITALS: BP 138/74
--- NOTE | 2022-01-27 18:30 | NUR ---
PT TRANSFERRED TO SNF DISCHARGE INSTRUCTIONS GIVEN ORDERED. ALL QUESTIONS AND CONCERNS ADDRESSED. PATIENT VERBALIZED UNDERSTANDING. IV REMOVED WITH CATHETER INTACT, PRESSURE DRESSING APPLIED. MEDICATION RECONCILIATION FORM COMPLETED AND COPY GIVEN TO PATIENT. TELE UNIT RETURNED TO STATION. RE[facility] TO [facility]. PATIENT TRANSPORTED BY AMBULANCE WITH ALL PERSONAL BELONGINGS. NO DISTRESS NOTED AT TIME OF DEPARTURE.
== END 2022-01-27 18:23 | DRG 853 ==
LOC: ER 17:58 → TRANSITION 19:57 → TELE1 01-14 08:39 → TELE 01-17 20:54
PROVIDERS: ADMIT Internal Medicine; ATTEND Legal Medicine
PROC: 0JBQ0ZZ Excision of Right Foot Subcutaneous Tissue and Fascia, Open Approach (ICD-10-PCS; principal; 2022-01-21)
DX: A41.9 Sepsis, unspecified organism (principal); J69.0 Pneumonitis due to inhalation of food and vomit; J96.01 Acute respiratory failure with hypoxia; N17.0 Acute kidney failure with tubular necrosis; J15.9 Unspecified bacterial pneumonia; L89.893 Pressure ulcer of other site, stage 3; N39.0 Urinary tract infection, site not specified; I13.0 Hypertensive heart and chronic kidney disease with heart failure and stage 1 through stage 4 chronic kidney disease, or unspecified chronic kidney disease; E87.0 Hyperosmolality and hypernatremia; J84.9 Interstitial pulmonary disease, unspecified; J44.0 Chronic obstructive pulmonary disease with (acute) lower respiratory infection; Z16.12 Extended spectrum beta lactamase (ESBL) resistance; I48.91 Unspecified atrial fibrillation; Z20.822 Contact with and (suspected) exposure to COVID-19; I50.9 Heart failure, unspecified; N18.30 Chronic kidney disease, stage 3 unspecified; B96.1 Klebsiella pneumoniae [K. pneumoniae] as the cause of diseases classified elsewhere; E78.5 Hyperlipidemia, unspecified; E86.0 Dehydration; F03.90 Unspecified dementia, unspecified severity, without behavioral disturbance, psychotic disturbance, mood disturbance, and anxiety; G89.4 Chronic pain syndrome; F09 Unspecified mental disorder due to known physiological condition; M47.816 Spondylosis without myelopathy or radiculopathy, lumbar region; M17.0 Bilateral primary osteoarthritis of knee; I71.4 Abdominal aortic aneurysm, without rupture; E11.22 Type 2 diabetes mellitus with diabetic chronic kidney disease; B96.20 Unspecified Escherichia coli [E. coli] as the cause of diseases classified elsewhere
CPT/HCPCS: 36415; 36600; 71045-TC; 71250-TC; 80048-TC; 80053-TC; 80076-TC; 81001; 82570-TC; 82803-TC; 83605-TC; 83735-TC; 83880; 84100-TC; 84155-TC; 84300-TC; 84439-TC; 84443-TC; 84484-TC; 85025-TC; 85378-TC; 85730-TC; 86140-TC; 87040-TC; 87081-TC; 87086-TC; 87186-TC; 92521; 92526; 92611-TC; 97112-TC; 97116-TC; 97530-TC; A6403; G0378; J0456; J0696; J1100; J1644; J2543; J3490; J7030; J7040; J7060; J8597; U0003

== ENCOUNTER 2022-02-18 10:40 | Outpatient (CLI) | payer MEDICARE, OTHER ==
[~2022-02-18 10:40] MED LIST: ASPI-1420 PO; ERGO500093 PO; LORA-259 PO; MECL-182 PO
[2022-02-18] MEDS ORDERED: LIDOCAINE 2% JEL 5 ML TUBE ONE ×2 (11:15→11:38)
[2022-02-18 12:06] LABS: BASOPHILS % (AUTO) 0.6 % (0.0-2.0); EOSINOPHILS % (AUTO) 1.7 % (0.0-6.0); HEMATOCRIT 34 % (33-45); HEMOGLOBIN 10.8 g/dL (11.5-14.8); LYMPHOCYTES # (AUTO) 1.6 K/uL (0.8-4.8); LYMPHOCYTES % (AUTO) 25.4 % (20.0-44.0); MEAN CORPUSCULAR HGB CONC 32 g/dl (31.0-36.0); MEAN CORPUSCULAR VOLUME 88 fL (82-100); MONOCYTES # (AUTO) 0.5 K/uL (0.1-1.30); MONOCYTES % (AUTO) 7.3 % (2.0-12.0); PLATELET COUNT (AUTO) 302 K/uL (150-450); RED BLOOD CELL COUNT(AUTO) 3.84 MIL/uL (4.0-5.2); WHITE BLOOD COUNT (AUTO) 6.2 K/uL (4.3-11.0)
== END 2022-02-18 23:59 | disposition home health service (06) ==
LOC: WOU 10:40
PROVIDERS: ATTEND Podiatrist Foot & Ankle Surgery
DX: E11.621 Type 2 diabetes mellitus with foot ulcer (principal); L97.513 Non-pressure chronic ulcer of other part of right foot with necrosis of muscle; R60.0 Localized edema; Z79.82 Long term (current) use of aspirin; Z79.899 Other long term (current) drug therapy
CPT/HCPCS: 11043; 36415; 82040-TC; 85025-TC; 85652-TC; 87070-TC; 87075-TC; 87186-TC

== ENCOUNTER 2022-02-20 09:48 | Inpatient (IN) | payer MEDICARE, OTHER ==
[~2022-02-20] VITALS: Ht 157.5 cm; Wt 72.6 kg
--- NOTE | 2022-02-20 09:50 | NUR ---
PT SIMEON FROM HOME, PER EMS REPORT, FAMILY CALLED 911. PATIENT WAS C/O WEAKNESS AND "NOT FEELING WELL" FOR THE PAST HOUR. UNABLE TO PROVIDE LAST KNOWN WELL FOR PATIENT. PT IS ARABIC SPEAKER. VERBAL, NO SLURRING OF SPEECH NOTED WHILE BEING TRIAGE. NO WEAKNESS NOTED TO BUE. GOOD EQUAL GREENKEEPER. PAIN NOTED WHILE MOVING BLE. PER EMS PT IS WHEELCHAIR BOUND. GOWNED AND PLACED ON MONITOR. VSS. AWAITING MD INGRAM.
--- NOTE | 2022-02-20 10:12 | NUR ---
IV LINE STARTED BLOOD DRAW AND SENT TO LAB.
--- NOTE | 2022-02-20 10:13 | NUR ---
DR TAPIA AT BEDSIDE FOR EVAL. NURSING SUPP NANDO TO TRANSLATE.
[2022-02-20 10:47] LABS: BASOPHILS % (AUTO) 0.5 % (0.0-2.0); EOSINOPHILS % (AUTO) 1.4 % (0.0-6.0); HEMATOCRIT 36 % (33-45); HEMOGLOBIN 11.4 g/dL (11.5-14.8); LYMPHOCYTES # (AUTO) 1.6 K/uL (0.8-4.8); LYMPHOCYTES % (AUTO) 18.1 % (20.0-44.0); MEAN CORPUSCULAR HGB CONC 32 g/dl (31.0-36.0); MEAN CORPUSCULAR VOLUME 89 fL (82-100); MONOCYTES # (AUTO) 0.5 K/uL (0.1-1.30); MONOCYTES % (AUTO) 5.2 % (2.0-12.0); NEUTROPHILS # (AUTO) 6.7 K/uL (1.8-8.9); NEUTROPHILS % (AUTO) 74.8 % (43.0-81.0); PLATELET COUNT (AUTO) 298 K/uL (150-450); RED BLOOD CELL COUNT(AUTO) 4.05 MIL/uL (4.0-5.2); WHITE BLOOD COUNT (AUTO) 8.9 K/uL (4.3-11.0)
[2022-02-20 11:06] LABS: ALANINE AMINOTRANSFERASE 49 U/L (12-78); ALBUMIN 3.4 g/dL (3.4-5.0); ALKALINE PHOSPHATASE 46 U/L (46-116); ASPARTATE AMINOTRANSFERASE 32 U/L (15-37); BILIRUBIN,DIRECT 0.1 mg/dL (0.0-0.2); BILIRUBIN,TOTAL 0.4 mg/dL (0.2-1.0); CALCIUM, SERUM 9.1 mg/dL (8.5-10.1); CARBON DIOXIDE 22 mmol/L (21-32); CHLORIDE 106 mmol/L (98-107); CREATININE 1.6 mg/dL (0.6-1.3); GLUCOSE 213 mg/dL (74-106); POTASSIUM 3.8 mmol/L (3.5-5.1); SODIUM SERUM 139 mmol/L (136-145); TOTAL PROTEIN, SERUM 7.6 g/dL (6.4-8.2); UREA NITROGEN, BLOOD 25 mg/dL (7-18)
--- NOTE | 2022-02-20 11:31 | NUR ---
URINE SAMPLE COLLECTED VIA STRAIGHT CATHETER AND SENT TO LAB
--- NOTE | 2022-02-20 11:35 | NUR ---
MOVE SHEET SUBMITTED AND CALLED FOR MS BED.
--- NOTE | 2022-02-20 11:39 | NUR ---
COVID SPECIMEN COLLECTED SENT TO LAB.
[2022-02-20] MEDS ORDERED: DICY10CA13 PO (11:44)
[2022-02-20] MEDS ORDERED: VALS40TA4 PO (11:45)
[2022-02-20] MEDS ORDERED: DULO60CA45 PO (11:45)
[2022-02-20] MEDS ORDERED: ROSU5TAB PO (11:51)
[2022-02-20] MEDS ORDERED: METO50TA16 PO (11:51)
[2022-02-20] MEDS ORDERED: SOLI5TAB2 PO (11:51)
[2022-02-20] MEDS ORDERED: ACET-2605 PO (11:51)
[2022-02-20] MEDS ORDERED: GABA-532 PO (11:51)
[2022-02-20] MEDS ORDERED: ARIP2TAB3 PO (11:51)
[2022-02-20] MEDS ORDERED: MEMA1CAP5 PO (11:51)
[2022-02-20] MEDS ORDERED: LEVO250T59 PO (11:52)
[2022-02-20 12:30] LABS: BILIRUBIN,URINE NEGATIVE (NEGATIVE); COLOR,URINE YELLOW (YELLOW); LEUKOCYTE ESTERASE ,URINE MODERATE (NEGATIVE); NITRITE, URINE POSITIVE (NEGATIVE); PROTEIN,URINE TRACE mg/dl (NEGATIVE); UGLUCOSE NEGATIVE (NEGATIVE); UROBILINOGEN,URINE 0.2 EU/dL (0.2)
--- NOTE | 2022-02-20 12:33 | NUR ---
BED 314-1
--- NOTE | 2022-02-20 12:51 | NUR ---
REPORT GIVEN TO WILFREDO ELIAS. PT AWAITING TRANSFER TO FLOOR.
[2022-02-20 13:56] LABS: BACTERIA,URINE Moderate /HPF (None Seen); SQUAMOUS EPITHELIAL CELL,UR Few /HPF (None Seen); WBC,URINE 51-80 /HPF (0-3)
[2022-02-20] MEDS ORDERED: CEFTRIAXONE 1GM BAG (ER ONLY) 1 GM/50 ML PIGGYBACK IV ONE (14:00)
[2022-02-20] MEDS ORDERED: ONDANSETRON HCL/PF 4 MG/2 ML VIAL IVP PRN (14:00)
[2022-02-20] MEDS ORDERED: ACETAMINOPHEN 325 MG TABLET PO PRN (14:00)
[2022-02-20] MEDS: IV NS 0.9% 1,000 ML IV PRN (14:35)
[2022-02-20] MEDS: CEFTRIAXONE 1 G in IV D5W 50 ML IV SCH (15:39)
[2022-02-20] MEDS: ENOXAPARIN SODIUM 30 MG/0.3 ML DISP.SYRIN SQ SCH (15:39)
[2022-02-20] MEDS ORDERED: DEXTROSE 50%-WATER 50 ML DISP.SYRIN IV PRN (16:00)
[2022-02-20] MEDS: MEMANTINE HCL 5 MG TABLET PO SCH (17:52)
[2022-02-20] MEDS: DICYCLOMINE HCL 10 MG CAPSULE PO SCH (17:52)
[2022-02-20] MEDS: GABAPENTIN 100 MG CAPSULE PO SCH (17:52)
[2022-02-20] MEDS: ACETAMINOPHEN ES 500 MG TABLET PO SCH (17:52)
[2022-02-20] MEDS: BLOOD SUGAR DIAGNOSTIC 1 EACH STRIP IN SCH ×2 (18:50→22:19)
--- NOTE | 2022-02-20 19:41 | NUR ---
END OF SHIFT REPORT Received patient from ER at 1330. Patient oriented to room and how to use the call light. Patient is A/O x 2-3, Lao speaking. Stable on room air, no SOB or s/s of distress noted. Skin assessment done, sacrum redness noted. Open wound on Right foot, lateral noted. Bowel sounds present. Due meds given. All needs attended to. Safety measures maintained: bed in low, locked position; siderails up x 2; call light within reach. Will endorse to aviation tactical readiness officer nurse for DEN. Addendum: 02/20/22 at 1949 by ANNABELLE CHENEY RN ADD: VS upon admission as follows: BP 117/74; Temp 97.4; RR 18; HR 82; SPO2 96%
[2022-02-20 20:00] VITALS: BP 118/73
--- NOTE | 2022-02-20 20:20 | NUR ---
Patient states that her chief complaint is abdominal pain that was so bad that she almost fainted at home. Family agrees that patient has been having intermittent stomach pains lately. Messaged Dr. Laboy - new order for STAT CT abdomen/pelvis. Also obtained consent for MRI of foot as family was able to give pt. history and sign for patient d/t language barrier and patient dementia.
--- NOTE | 2022-02-20 20:58 | NUR ---
Patient being taken to CT
--- NOTE | 2022-02-20 21:16 | NUR ---
Patient back from CT. Tolerated well.
[2022-02-20] MEDS: ATORVASTATIN 10 MG TABLET PO SCH (21:32)
[2022-02-20] MEDS: METOPROLOL TARTRATE 50 MG TABLET PO SCH (21:32)
--- NOTE | 2022-02-20 22:16 | NUR ---
Messaged Dr. Laboy about what to do if patient experiences acute abdominal pain overnight. replied with new order Morphine 1mg IV q6h PRN severe pain.
--- NOTE | 2022-02-20 23:06 | NUR ---
Called after hours radiology number for CT scan read. Cap Sizer says she will page for urgent read.
[2022-02-21] MEDS: IV NS 0.9% 1,000 ML IV PRN (02:17)
--- NOTE | 2022-02-21 06:15 | NUR ---
Patient has been A&Ox1-2 overnight, forgetful at times. No episodes of acute abdominal pain, did feel epigastric discomfort but resolved when sitting upright. RAC 18G intact and patent running NS at 100cc/hr. No s/s of hypo or hyperglycemia. Currently awake in bed, in no signs of distress.
[2022-02-21 06:40] LABS: BASOPHILS % (AUTO) 0.6 % (0.0-2.0); EOSINOPHILS % (AUTO) 1.9 % (0.0-6.0); HEMATOCRIT 30 % (33-45); HEMOGLOBIN 9.6 g/dL (11.5-14.8); LYMPHOCYTES # (AUTO) 1.5 K/uL (0.8-4.8); LYMPHOCYTES % (AUTO) 24.7 % (20.0-44.0); MEAN CORPUSCULAR HGB CONC 32 g/dl (31.0-36.0); MEAN CORPUSCULAR VOLUME 88 fL (82-100); MONOCYTES # (AUTO) 0.4 K/uL (0.1-1.30); NEUTROPHILS # (AUTO) 3.9 K/uL (1.8-8.9); NEUTROPHILS % (AUTO) 65.8 % (43.0-81.0); PLATELET COUNT (AUTO) 204 K/uL (150-450); RED BLOOD CELL COUNT(AUTO) 3.36 MIL/uL (4.0-5.2); WHITE BLOOD COUNT (AUTO) 5.9 K/uL (4.3-11.0)
[2022-02-21] MEDS: BLOOD SUGAR DIAGNOSTIC 1 EACH STRIP IN SCH ×4 (07:01→23:14)
[2022-02-21 08:13] VITALS: BP 115/67
--- NOTE | 2022-02-21 08:29 | NUR ---
TEXT HYDROGEN CELL TENDER (AB) THE REQUISITION AT 0533 , NO RESPONSE YET.
[2022-02-21 08:57] LABS: CREATININE 1.1 mg/dL (0.6-1.3); MAGNESIUM 2.5 mg/dL (1.8-2.4); POTASSIUM 3.5 mmol/L (3.5-5.1)
[2022-02-21] MEDS ORDERED: [UNRECOGNIZED DRUG - OTHER] PO SCH (09:00)
[2022-02-21] MEDS ORDERED: MEMANTINE HCL PO SCH (09:00)
[2022-02-21] MEDS ORDERED: DONEPEZIL HCL PO SCH (09:00)
[2022-02-21] MEDS ORDERED: VALSARTAN PO SCH (09:00)
--- NOTE | 2022-02-21 09:17 | NUR ---
WOUND CARE CONSULT: PT REFUSED TO TURN FOR SKIN ASSESSMENT AND REFUSED TO HAVE RT FOOT DRESSING REMOVED. DR ARAGON CALLED FOR DPM CONSULT. PT WAS EVENTUALLY CONVINCED TO ALLOW SKIN ASSESSMENT OF SACRUM AND BUTTOCKS, REVEALING SLIGHT RASH/SKIN DISCOLORATION OF BUTTOCKS AND SACRAL SCAR. RECOMMENDATIONS MADE FOR SKIN PROTECTION. DISCUSSED WITH NURSING STAFF. MD IN AGREEMENT WITH PLAN OF CARE.
[2022-02-21] MEDS: DULOXETINE HCL 30 MG CAPSULE.DR PO SCH (09:35)
[2022-02-21] MEDS: MEMANTINE HCL 5 MG TABLET PO SCH ×2 (09:35→18:09)
[2022-02-21] MEDS: ARIPIPRAZOLE 2 MG TABLET PO SCH (09:35)
[2022-02-21] MEDS: GABAPENTIN 100 MG CAPSULE PO SCH ×2 (09:35→18:08)
[2022-02-21] MEDS: DONEPEZIL 5 MG TABLET PO SCH (09:35)
[2022-02-21] MEDS: DICYCLOMINE HCL 10 MG CAPSULE PO SCH ×2 (09:35→18:09)
[2022-02-21] MEDS: ASPIRIN EC 81 MG TABLET.DR PO SCH (09:39)
[2022-02-21] MEDS: ACETAMINOPHEN ES 500 MG TABLET PO SCH ×2 (09:39→18:09)
[2022-02-21] MEDS: PANTOPRAZOLE 40 MG TABLET.DR PO SCH (09:39)
[2022-02-21] MEDS: ENOXAPARIN SODIUM 30 MG/0.3 ML DISP.SYRIN SQ SCH (14:30)
[2022-02-21] MEDS: THERAHONEY GEL 1.5 OZ TUBE TP SCH (15:19)
[2022-02-21] MEDS: CEFTRIAXONE 1 G in IV D5W 50 ML IV SCH (15:20)
[2022-02-21 16:00] VITALS: BP 128/68
[2022-02-21] MEDS: CLOTRIMAZOLE 1% 15 GM TUBE TP SCH (18:03)
--- NOTE | 2022-02-21 18:06 | NUR ---
MS/RN PT PULLED THE H/L AND REMOVED THE ID BAND. WILL ENDORSE TO GISSELLE CARBALLO ACCORDINGLY
--- NOTE | 2022-02-21 19:40 | NUR ---
MSRN LANGUAGE BARRIER, HAVE ANOTHER STAFF WHO SPEAKS SAME LANGUAGE, UNDERSTANDS PLAN OF CARE AND DENIES ANY DISCOMFORTS. ALL NEEDS MADE. CLOSELY WATCHED
[2022-02-21 20:00] VITALS: BP 135/95
[2022-02-21] MEDS: ATORVASTATIN 10 MG TABLET PO SCH (23:15)
[2022-02-21] MEDS: METOPROLOL TARTRATE 50 MG TABLET PO SCH (23:17)
--- NOTE | 2022-02-21 23:21 | NUR ---
MSRN BLOOD SUGAR WAS 93. SNACKS PROVIDED WITH MEDS DUE. ATE WELL. COOPERATIVE.
[2022-02-22 06:11] LABS: BASOPHILS % (AUTO) 0.5 % (0.0-2.0); EOSINOPHILS % (AUTO) 1.8 % (0.0-6.0); HEMATOCRIT 33 % (33-45); HEMOGLOBIN 10.6 g/dL (11.5-14.8); LYMPHOCYTES # (AUTO) 1.3 K/uL (0.8-4.8); LYMPHOCYTES % (AUTO) 22.4 % (20.0-44.0); MEAN CORPUSCULAR HGB CONC 33 g/dl (31.0-36.0); MEAN CORPUSCULAR VOLUME 87 fL (82-100); MONOCYTES # (AUTO) 0.4 K/uL (0.1-1.30); NEUTROPHILS # (AUTO) 3.8 K/uL (1.8-8.9); NEUTROPHILS % (AUTO) 68.3 % (43.0-81.0); PLATELET COUNT (AUTO) 225 K/uL (150-450); RED BLOOD CELL COUNT(AUTO) 3.77 MIL/uL (4.0-5.2); WHITE BLOOD COUNT (AUTO) 5.6 K/uL (4.3-11.0)
--- NOTE | 2022-02-22 06:12 | NUR ---
MSRN LABS DRAWN. BS 97. AM CARE STARTED. INCONTINENT OF URINE. MRSA OF NARES PRECAUTIONARY MEASURES OBSERVED.
[2022-02-22 08:00] VITALS: BP 135/45
--- NOTE | 2022-02-22 08:08 | NUR ---
RN OPENING NOTE PATIENT IN BED RESTING AWAKE, A/OX2, NO S/S OF PAIN NOTED AT THIS TIME. ON ROOM AIR, NO DISTRESS OR SHORTNESS OF BREATH NOTED. NO IV ACCESS AT THE MOMENT, PATIENT REMOVED IV. FALL AND SAFETY MEASURES IN PLACE, BED ALARM ON. BED IN LOW AND LOCK POSITION, CALL LIGHT AND TABLE WITHIN EASY REACH, SIDE RAILS UP X2. WILL CONTINUE TO MONITOR.
[2022-02-22] MEDS: ARIPIPRAZOLE 2 MG TABLET PO SCH (09:09)
[2022-02-22] MEDS: PANTOPRAZOLE 40 MG TABLET.DR PO SCH (09:10)
[2022-02-22] MEDS: DULOXETINE HCL 30 MG CAPSULE.DR PO SCH (09:10)
[2022-02-22] MEDS: DONEPEZIL 5 MG TABLET PO SCH (09:10)
[2022-02-22] MEDS: BLOOD SUGAR DIAGNOSTIC 1 EACH STRIP IN SCH ×4 (09:10→21:17)
[2022-02-22] MEDS: DICYCLOMINE HCL 10 MG CAPSULE PO SCH ×2 (09:11→17:10)
[2022-02-22] MEDS: ACETAMINOPHEN ES 500 MG TABLET PO SCH ×2 (09:11→17:10)
[2022-02-22] MEDS: GABAPENTIN 100 MG CAPSULE PO SCH ×2 (09:11→17:10)
[2022-02-22] MEDS: ASPIRIN EC 81 MG TABLET.DR PO SCH (09:11)
[2022-02-22] MEDS: MEMANTINE HCL 5 MG TABLET PO SCH ×2 (09:11→17:10)
[2022-02-22] MEDS: CLOTRIMAZOLE 1% 15 GM TUBE TP SCH ×2 (09:16→17:15)
[2022-02-22] MEDS: THERAHONEY GEL 1.5 OZ TUBE TP SCH (09:17)
[2022-02-22 11:54] LABS: CALCIUM, SERUM 8.5 mg/dL (8.5-10.1); CREATININE 0.8 mg/dL (0.6-1.3); POTASSIUM 3.4 mmol/L (3.5-5.1)
[2022-02-22] MEDS: ENSURE ENLIVE CHOC 237 ML CAN PO SCH ×2 (12:55→17:15)
[2022-02-22] MEDS ORDERED: POTASSIUM CHLORIDE 20 MEQ TAB.PRT.SR PO SCH (13:30)
[2022-02-22] MEDS: ENOXAPARIN SODIUM 30 MG/0.3 ML DISP.SYRIN SQ SCH (13:41)
[2022-02-22] MEDS: CEFTRIAXONE 1 G in IV D5W 50 ML IV SCH (15:32)
[2022-02-22 16:00] VITALS: BP 125/72
--- NOTE | 2022-02-22 19:14 | NUR ---
RN CLOSING NOTE PATIENT IN BED RESTING AWAKE, A/OX2, NO S/S OF PAIN NOTED AT THIS TIME. ON ROOM AIR, NO DISTRESS OR SHORTNESS OF BREATH NOTED. IV ACCESS R HAND #20G INTACT, PATENT AND FLUSHING WELL. FALL AND SAFETY MEASURES IN PLACE, BED ALARM ON. BED IN LOW AND LOCK POSITION, CALL LIGHT AND TABLE WITHIN EASY REACH, SIDE RAILS UP X2. WILL ENDORSE TO FIRE FIGHTING EQUIPMENT SPECIALIST.
--- NOTE | 2022-02-22 19:55 | NUR ---
RN OPENING NOTE Patient is A&Ox2 awake and calm in bed at this time. No signs of distress. Denies pain. Dressing to R foot c/d/i. R hand #20G IV intact and patent running NS at 100cc/hr. Safety measures in place. Will continue to monitor patient.
[2022-02-22 20:00] VITALS: BP 128/65
[2022-02-22] MEDS: MUPIROCIN OINT 2% 22 GM TUBE NS SCH (20:29)
[2022-02-22] MEDS: IV NS 0.9% 1,000 ML IV PRN (20:58)
[2022-02-22] MEDS: METOPROLOL TARTRATE 50 MG TABLET PO SCH (21:01)
[2022-02-22] MEDS: ATORVASTATIN 10 MG TABLET PO SCH (21:01)
--- NOTE | 2022-02-22 22:15 | NUR ---
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 Contacted via secure message if any new orders and if he wants a wound culture. has not yet responded. Asked [facility] if they are covering for Dr. Laboy this weekend -per [facility] director internal communications they are not. Will await reply. Patient is currently on rocephin and planning for surgical resection of area on thursday.
[2022-02-23] MEDS: IV NS 0.9% 1,000 ML IV PRN ×2 (06:02→14:40)
--- NOTE | 2022-02-23 06:17 | NUR ---
Patient is A&Ox2 at baseline but confused woke up slightly agitated trying to pull at line -wrapped with kerlix and attempting to hide tubing. However, pt. is cooperative with hygeine care, accuchek, and blood draw. No s/s of hypo or hyper glycemia. dressing to R foot c/d/i. R hand #20g IV infusing NS at 100cc/hr -intact and patent. Currently in bed having confused conversation with roommate, but no cardiac or respiratory distress.
[2022-02-23] MEDS: BLOOD SUGAR DIAGNOSTIC 1 EACH STRIP IN SCH ×4 (06:44→21:11)
[2022-02-23 07:18] LABS: CALCIUM, SERUM 8.2 mg/dL (8.5-10.1); CREATININE 1.1 mg/dL (0.6-1.3); POTASSIUM 3.3 mmol/L (3.5-5.1)
--- NOTE | 2022-02-23 07:30 | NUR ---
RN OPENING NOTE PATIENT IN BED RESTING AWAKE, A/OX2, NO S/S OF PAIN NOTED AT THIS TIME. ON ROOM AIR, NO DISTRESS OR SHORTNESS OF BREATH NOTED. IV ACCESS R HAND #20G INTACT, PATENT AND FLUSHING WELL. FALL AND SAFETY MEASURES IN PLACE, BED ALARM ON. BED IN LOW AND LOCK POSITION, CALL LIGHT AND TABLE WITHIN EASY REACH, SIDE RAILS UP X2. WILL CONTINUE TO MONITOR.
[2022-02-23] MEDS: GABAPENTIN 100 MG CAPSULE PO SCH ×2 (08:44→17:54)
[2022-02-23] MEDS: ASPIRIN EC 81 MG TABLET.DR PO SCH (08:44)
[2022-02-23] MEDS: DULOXETINE HCL 30 MG CAPSULE.DR PO SCH (08:44)
[2022-02-23] MEDS: DICYCLOMINE HCL 10 MG CAPSULE PO SCH ×2 (08:44→17:54)
[2022-02-23] MEDS: PANTOPRAZOLE 40 MG TABLET.DR PO SCH (08:44)
[2022-02-23] MEDS: ARIPIPRAZOLE 2 MG TABLET PO SCH (08:44)
[2022-02-23] MEDS: MEMANTINE HCL 5 MG TABLET PO SCH ×2 (08:45→17:55)
[2022-02-23] MEDS: DONEPEZIL 5 MG TABLET PO SCH (08:45)
[2022-02-23] MEDS: ACETAMINOPHEN ES 500 MG TABLET PO SCH ×2 (08:45→17:54)
[2022-02-23] MEDS: MUPIROCIN OINT 2% 22 GM TUBE NS SCH ×2 (08:46→21:11)
[2022-02-23] MEDS: ENSURE ENLIVE CHOC 237 ML CAN PO SCH ×2 (08:46→17:55)
[2022-02-23] MEDS: THERAHONEY GEL 1.5 OZ TUBE TP SCH (08:47)
[2022-02-23] MEDS: CLOTRIMAZOLE 1% 15 GM TUBE TP SCH ×2 (08:47→17:55)
[2022-02-23] MEDS: POTASSIUM CL. PREMIX PERIPHER. 50 ML IV SCH ×2 (11:23→12:36)
[2022-02-23] MEDS: ENOXAPARIN SODIUM 30 MG/0.3 ML DISP.SYRIN SQ SCH (14:08)
[2022-02-23 16:00] VITALS: BP 126/72
--- NOTE | 2022-02-23 19:43 | NUR ---
RN CLOSING NOTE PATIENT IN BED RESTING AWAKE, A/OX2, NO S/S OF PAIN NOTED AT THIS TIME. ON ROOM AIR, NO DISTRESS OR SHORTNESS OF BREATH NOTED. IV ACCESS R HAND #20G INTACT, PATENT AND FLUSHING WELL. FALL AND SAFETY MEASURES IN PLACE, BED ALARM ON. BED IN LOW AND LOCK POSITION, CALL LIGHT AND TABLE WITHIN EASY REACH, SIDE RAILS UP X2. WILL ENDORSE TO DIRECTOR MORTGAGE.
[2022-02-23 20:00] VITALS: BP 146/82
[2022-02-23] MEDS ORDERED: QUETIAPINE FUMARATE 25 MG TABLET PO ONE (20:30)
--- NOTE | 2022-02-23 20:30 | NUR ---
Patient is confused had pulled out IV, and is now yelling at staff in [place] and attempting to get out of bed despite being toileted already. Got family on the phone and they said she is confused and often has these sundowning episodes at home. [place] preform machine operator from ER also came up to assure patient that she is safe and that pt. should allow nurses to do their job. Unsuccessful -new order from provider substation mechanic seroquel 25mg x1 PO.
[2022-02-23] MEDS: NITROFURANTOIN/MONOHYDRATE MACROCRYSTALS 100 MG CAPSULE PO SCH (21:09)
[2022-02-23] MEDS: ATORVASTATIN 10 MG TABLET PO SCH (21:09)
[2022-02-23] MEDS: METOPROLOL TARTRATE 50 MG TABLET PO SCH (21:10)
--- NOTE | 2022-02-23 23:47 | NUR ---
Patient able to calm down and taken all of her HS medications. Also able to get a #20G IV to LFA and provide wound care to R foot. However, pt. was non-compliant with turning to see back side for sacrum discoloration picture. However, when toileted earlier area was seen to be intact and skin blanchable.
--- NOTE | 2022-02-24 06:18 | NUR ---
Patient had episode of agitation last night but one time order of seroquel was effective. IV line #20G LFA still intact -wrapped with kerlix until procedure to prevent patient from pulling it out again. Currently resting calmly in bed in no signs of distress. Breathing even and unlabored.
[2022-02-24 06:25] LABS: BASOPHILS % (AUTO) 0.5 % (0.0-2.0); HEMATOCRIT 28 % (33-45); HEMOGLOBIN 8.9 g/dL (11.5-14.8); LYMPHOCYTES % (AUTO) 19.4 % (20.0-44.0); MEAN CORPUSCULAR HGB CONC 32 g/dl (31.0-36.0); MEAN CORPUSCULAR VOLUME 89 fL (82-100); MONOCYTES # (AUTO) 0.4 K/uL (0.1-1.30); MONOCYTES % (AUTO) 8.4 % (2.0-12.0); NEUTROPHILS # (AUTO) 3.6 K/uL (1.8-8.9); NEUTROPHILS % (AUTO) 70.7 % (43.0-81.0); PLATELET COUNT (AUTO) 174 K/uL (150-450); RED BLOOD CELL COUNT(AUTO) 3.15 MIL/uL (4.0-5.2); WHITE BLOOD COUNT (AUTO) 5.1 K/uL (4.3-11.0)
--- NOTE | 2022-02-24 06:28 | NUR ---
Patient has been NPO since midnight for AM procedure.
[2022-02-24 07:14] LABS: CALCIUM, SERUM 8.2 mg/dL (8.5-10.1); CREATININE 0.9 mg/dL (0.6-1.3); PHOSPHORUS 1.7 mg/dL (2.5-4.9); POTASSIUM 3.8 mmol/L (3.5-5.1)
--- NOTE | 2022-02-24 07:31 | NUR ---
MS RN OPENING NOTE Patient in bed, asleep. A/O x 2. On room air, breathing evenly and unlabored. No SOB or s/s of distress noted. IV access on LFA #20G, intact and patent. NPO status maintained for procedure this AM. Safety precautions in place: bed in low, locked position; siderails up x 2; call light within reach. Will continue to monitor.
[2022-02-24] MEDS: BLOOD SUGAR DIAGNOSTIC 1 EACH STRIP IN SCH ×4 (07:51→21:17)
[2022-02-24 08:00] VITALS: BP 124/61
[2022-02-24] MEDS: ENSURE ENLIVE CHOC 237 ML CAN PO SCH ×2 (08:00→17:54)
[2022-02-24] MEDS: DICYCLOMINE HCL 10 MG CAPSULE PO SCH ×2 (08:28→17:54)
[2022-02-24] MEDS: PANTOPRAZOLE 40 MG TABLET.DR PO SCH (08:28)
[2022-02-24] MEDS: ASPIRIN EC 81 MG TABLET.DR PO SCH (08:28)
[2022-02-24] MEDS: NITROFURANTOIN/MONOHYDRATE MACROCRYSTALS 100 MG CAPSULE PO SCH ×2 (08:29→21:16)
[2022-02-24] MEDS: DULOXETINE HCL 30 MG CAPSULE.DR PO SCH (08:29)
[2022-02-24] MEDS: DONEPEZIL 5 MG TABLET PO SCH (08:29)
[2022-02-24] MEDS: ERGOCALCIFEROL (VITAMIN D 2) 50,000 UNIT CAPSULE PO SCH (08:29)
[2022-02-24] MEDS: ARIPIPRAZOLE 2 MG TABLET PO SCH (08:29)
[2022-02-24] MEDS: MEMANTINE HCL 5 MG TABLET PO SCH ×2 (08:29→17:54)
[2022-02-24] MEDS: ACETAMINOPHEN ES 500 MG TABLET PO SCH ×2 (08:29→17:54)
[2022-02-24] MEDS: GABAPENTIN 100 MG CAPSULE PO SCH ×2 (08:29→17:54)
[2022-02-24] MEDS: THERAHONEY GEL 1.5 OZ TUBE TP SCH (08:39)
[2022-02-24] MEDS: MUPIROCIN OINT 2% 22 GM TUBE NS SCH ×2 (08:39→21:16)
[2022-02-24] MEDS: CLOTRIMAZOLE 1% 15 GM TUBE TP SCH ×2 (08:39→17:55)
[2022-02-24] MEDS ORDERED: BUPIVACAINE 0.5 % PF 150 MG/30 ML VIAL ONE (09:07)
--- NOTE | 2022-02-24 09:10 | NUR ---
RN NOTE Patient taken to OR for Right foot debridement.
[2022-02-24] MEDS ORDERED: FENTANYL PF 100MCG/2ML AMPUL ONE (09:14)
[2022-02-24] MEDS ORDERED: FAMOTIDINE/PF INJ 20 MG/2 ML VIAL IV ONE (09:14)
--- NOTE | 2022-02-24 12:00 | NUR ---
RN NOTE Patient brought back to room 311-2, S/P debridement of right foot. VS as follows: 118/63, HR 86, RR 19, Temp 97.5, SPO2 98%. Right foot surgical dressing c/d/i.
[2022-02-24] MEDS: ENOXAPARIN SODIUM 30 MG/0.3 ML DISP.SYRIN SQ SCH (13:56)
[2022-02-24] MEDS ORDERED: K PHOS NEUTRAL 250 MG TABLET PO ONE (15:00)
[2022-02-24 16:00] VITALS: BP 100/50
[2022-02-24] MEDS: INSULIN REGULAR, HUMAN 100 UNIT/ML 3 ML VIAL SQ PRN (18:04)
--- NOTE | 2022-02-24 19:35 | NUR ---
MS RN OPENING NOTES PATIENT RECEIVED IN BED, ASLEEP, PATIENT S/P R FOOT DEBRIDEMENT; PATIENT EASILY AROUSABLE, CZECH SPEAKING; A/OX2, BREATHING EVEN AND UNLABORED; NO SOB NOTED; PATIENT CURRENTLY RECEIVING 2L VIA NC PER POST OP PROTOCOL; WILL CONT TO MONITOR; LFA #20 INTACT AND PATENT; FLUSHING WELL, NO S/S OF REDNESS OR INFILTRATION NOTED; SAFETY PRECAUTIONS IMPLEMENTED; BED LOCKED IN LOW POSITION; SIDE RAILSX2; CALL LIGHT WITHIN REACH, WILL CONT PLAN OF CARE AND CONT TO MONITOR PATIENT
--- NOTE | 2022-02-24 19:51 | NUR ---
MS RN CLOSING NOTE Patient in bed, asleep. A/O x 2. Stable on room air, breathing evenly and unlabored. No SOB or s/s of distress noted. IV access on LFA #20G, intact and patent. Right foot surgical dressing c/d/i. All needs attended to. Due meds given. Safety precautions maintained: bed in low, locked position; siderails up x 2; call light within reach. Will endorse to shift mgr nurse for DEN.
[2022-02-24 20:00] VITALS: BP 98/59
[2022-02-24] MEDS: ATORVASTATIN 10 MG TABLET PO SCH (21:16)
[2022-02-24] MEDS: METOPROLOL TARTRATE 50 MG TABLET PO SCH (21:16)
--- NOTE | 2022-02-25 06:47 | NUR ---
MS RN CLOSING NOTES PATIENT RECEIVED IN BED, LAYING DOWN AND RESTING,, PATIENT S/P R FOOT DEBRIDEMENT; PATIENT EASILY AROUSABLE, GREENLANDIC SPEAKING; A/OX2, BREATHING EVEN AND UNLABORED; NO SOB NOTED; PATIENT CURRENTLY RECEIVING 2L VIA NC PER POST OP PROTOCOL; WILL CONT TO MONITOR; PATIENT UNABLE TO TOLERATE ROOM AIR AT THE MOMENT; LFA #20 INTACT AND PATENT; FLUSHING WELL, NO S/S OF REDNESS OR INFILTRATION NOTED; SAFETY PRECAUTIONS IMPLEMENTED; BED LOCKED IN LOW POSITION; SIDE RAILSX2; CALL LIGHT WITHIN REACH, ALL NEEDS RENDERED; WILL ENDORSE DEN TO ONCOMING SHIFT
--- NOTE | 2022-02-25 07:30 | NUR ---
MS RN OPENING NOTES RECEIVED PATIENT ON BED AWAKE AND A/O X2, CHINESE SPEAKING. ON O2 AT 2LPM VIA NASAL CANNULA TOLERATING WELL. NO SOB NOTED. NOT IN DISTRESS. WITH NO COMPLAINTS OF PAIN OR DISCOMFORT AT THIS TIME. WITH IV ACCESS AT LEFT FOREARM G20 SALINE LOCKED, PATENT AND INTACT. SAFETY MEASURES IN PLACED. CALL LIGHT WITHIN REACH. BED ON LOWEST LOCKED POSITION, SIDE RAILS UP X2. WILL CONTINUE TO MONITOR.
[2022-02-25 07:33] LABS: BASOPHILS % (AUTO) 0.4 % (0.0-2.0); EOSINOPHILS % (AUTO) 0.8 % (0.0-6.0); HEMATOCRIT 29 % (33-45); HEMOGLOBIN 9.5 g/dL (11.5-14.8); LYMPHOCYTES # (AUTO) 0.8 K/uL (0.8-4.8); LYMPHOCYTES % (AUTO) 14.3 % (20.0-44.0); MEAN CORPUSCULAR HGB CONC 33 g/dl (31.0-36.0); MEAN CORPUSCULAR VOLUME 89 fL (82-100); MONOCYTES # (AUTO) 0.5 K/uL (0.1-1.30); MONOCYTES % (AUTO) 9.1 % (2.0-12.0); NEUTROPHILS # (AUTO) 4.4 K/uL (1.8-8.9); NEUTROPHILS % (AUTO) 75.4 % (43.0-81.0); PLATELET COUNT (AUTO) 157 K/uL (150-450); RED BLOOD CELL COUNT(AUTO) 3.27 MIL/uL (4.0-5.2); WHITE BLOOD COUNT (AUTO) 5.9 K/uL (4.3-11.0)
[2022-02-25] MEDS: BLOOD SUGAR DIAGNOSTIC 1 EACH STRIP IN SCH ×4 (07:45→21:49)
[2022-02-25 08:00] VITALS: BP 129/63
[2022-02-25] MEDS: ARIPIPRAZOLE 2 MG TABLET PO SCH (08:27)
[2022-02-25] MEDS: GABAPENTIN 100 MG CAPSULE PO SCH ×2 (08:27→16:15)
[2022-02-25] MEDS: NITROFURANTOIN/MONOHYDRATE MACROCRYSTALS 100 MG CAPSULE PO SCH ×2 (08:28→21:09)
[2022-02-25] MEDS: ASPIRIN EC 81 MG TABLET.DR PO SCH (08:28)
[2022-02-25] MEDS: ACETAMINOPHEN ES 500 MG TABLET PO SCH ×2 (08:28→16:15)
[2022-02-25] MEDS: DULOXETINE HCL 30 MG CAPSULE.DR PO SCH (08:28)
[2022-02-25] MEDS: DONEPEZIL 5 MG TABLET PO SCH (08:28)
[2022-02-25] MEDS: PANTOPRAZOLE 40 MG TABLET.DR PO SCH (08:28)
[2022-02-25] MEDS: MEMANTINE HCL 5 MG TABLET PO SCH ×2 (08:28→16:15)
[2022-02-25] MEDS: DICYCLOMINE HCL 10 MG CAPSULE PO SCH ×2 (08:28→16:15)
[2022-02-25] MEDS: MUPIROCIN OINT 2% 22 GM TUBE NS SCH ×2 (08:29→21:50)
[2022-02-25] MEDS: CLOTRIMAZOLE 1% 15 GM TUBE TP SCH ×2 (08:29→16:16)
[2022-02-25] MEDS: ENSURE ENLIVE CHOC 237 ML CAN PO SCH ×2 (08:38→16:15)
[2022-02-25 08:56] LABS: CALCIUM, SERUM 7.8 mg/dL (8.5-10.1); CREATININE 0.8 mg/dL (0.6-1.3); MAGNESIUM 1.8 mg/dL (1.8-2.4); PHOSPHORUS 2.3 mg/dL (2.5-4.9); POTASSIUM 3.8 mmol/L (3.5-5.1)
[2022-02-25] MEDS: IV NS 0.9% 1,000 ML IV PRN (11:49)
[2022-02-25] MEDS: ENOXAPARIN SODIUM 30 MG/0.3 ML DISP.SYRIN SQ SCH (13:41)
[2022-02-25 16:00] VITALS: BP 121/70
[2022-02-25] MEDS ORDERED: K PHOS NEUTRAL 250 MG TABLET PO ONE (16:00)
--- NOTE | 2022-02-25 18:33 | NUR ---
MS RN CLOSING NOTES PATIENT ON BED AWAKE AND A/O X2, SURINAMESE SPEAKING. ON O2 AT 2LPM VIA NASAL CANNULA TOLERATING WELL. NO SOB NOTED. NOT IN DISTRESS. WITH NO COMPLAINTS OF PAIN OR DISCOMFORT AT THIS TIME. WITH IV ACCESS AT LEFT FOREARM G20 WITH IVF NS AT 100ML/HR INFUSING WELL. SAFETY MEASURES IN PLACED. CALL LIGHT WITHIN REACH. BED ON LOWEST LOCKED POSITION, SIDE RAILS UP X2. WILL ENDORSE TO NEXT SHIFT FOR DEN.
--- NOTE | 2022-02-25 19:45 | NUR ---
MS RN OPENING NOTES RECEIVED PATIENT RESTING IN BED, SLEEPING, EASILY AROUSABLE; A/OX2, CHINESE SPEAKING; PATIENT ON 2LPM VIA NASAL CANNULA, CURRENTLY SATTING AT 99%, BREATHING EVEN AND UNLABORED; NO SOB NOTED; NO DISTRESS NOTED AT THIS TIME; LFA #20 INTACT AND PATENT, TOLERATING IVF WELL; NO S/S OF INFILTRATION OR REDNESS NOTED; SAFETY PRECAUTIONS IMPLEMENTED; BED LOCKED IN LOW POSITION; SIDE RAILSX2, CALL LIGHT WITHIN REACH; WILL CONT TO MONITOR
[2022-02-25 20:12] VITALS: BP 144/55
[2022-02-25] MEDS: ATORVASTATIN 10 MG TABLET PO SCH (21:49)
[2022-02-25] MEDS: METOPROLOL TARTRATE 50 MG TABLET PO SCH (21:50)
[2022-02-26] MEDS: IV NS 0.9% 1,000 ML IV PRN ×2 (03:18→13:20)
[2022-02-26] MEDS: BLOOD SUGAR DIAGNOSTIC 1 EACH STRIP IN SCH ×4 (06:34→22:05)
[2022-02-26 06:47] LABS: BASOPHILS % (AUTO) 0.3 % (0.0-2.0); EOSINOPHILS % (AUTO) 1.3 % (0.0-6.0); HEMATOCRIT 27 % (33-45); HEMOGLOBIN 8.6 g/dL (11.5-14.8); LYMPHOCYTES # (AUTO) 0.9 K/uL (0.8-4.8); LYMPHOCYTES % (AUTO) 18.8 % (20.0-44.0); MEAN CORPUSCULAR HGB CONC 32 g/dl (31.0-36.0); MEAN CORPUSCULAR VOLUME 89 fL (82-100); MONOCYTES # (AUTO) 0.4 K/uL (0.1-1.30); MONOCYTES % (AUTO) 9.1 % (2.0-12.0); NEUTROPHILS # (AUTO) 3.3 K/uL (1.8-8.9); NEUTROPHILS % (AUTO) 70.5 % (43.0-81.0); PLATELET COUNT (AUTO) 137 K/uL (150-450); RED BLOOD CELL COUNT(AUTO) 2.98 MIL/uL (4.0-5.2); WHITE BLOOD COUNT (AUTO) 4.7 K/uL (4.3-11.0)
--- NOTE | 2022-02-26 06:54 | NUR ---
MS RN CLOSING NOTES PATIENT RECEIVED IN BED, LAYING DOWN AND RESTING,, PATIENT S/P R FOOT DEBRIDEMENT; PATIENT EASILY AROUSABLE, HEBREW SPEAKING; A/OX2, BREATHING EVEN AND UNLABORED; NO SOB NOTED; PATIENT CURRENTLY RECEIVING 2L VIA NC, PATIENT DESATS WHEN OFF OXYGEN, MD IS AWARE; PER MD KEEP MONITORING PATIENT WITH OXYGEN; WILL CONT TO MONITOR; PATIENT UNABLE TO TOLERATE ROOM AIR AT THE MOMENT; LFA #20 INTACT AND PATENT; FLUSHING WELL, NO S/S OF REDNESS OR INFILTRATION NOTED; WRAPPED WITH IDANIA BANDAGE WRAP FOR SAFETY; PER PREVIOUS SHIFTS, PATIENT GOT VERY CONFUSED AND PULLED IV ACCESS OUT AND CUT TUBING WITH HER TEETH; SAFETY PRECAUTIONS IMPLEMENTED; BED LOCKED IN LOW POSITION; SIDE RAILSX2; CALL LIGHT WITHIN REACH, ALL NEEDS RENDERED; WILL ENDORSE DEN TO ONCOMING SHIFT
[2022-02-26 07:08] LABS: CARBON DIOXIDE 24 mmol/L (21-32); CHLORIDE 112 mmol/L (98-107); CREATININE 0.6 mg/dL (0.6-1.3); GLUCOSE 88 mg/dL (74-106); MAGNESIUM 1.8 mg/dL (1.8-2.4); PHOSPHORUS 1.8 mg/dL (2.5-4.9); POTASSIUM 3.6 mmol/L (3.5-5.1); SODIUM SERUM 144 mmol/L (136-145); UREA NITROGEN, BLOOD 9 mg/dL (7-18)
--- NOTE | 2022-02-26 07:30 | NUR ---
MS RN OPENING NOTES RECEIVED PATIENT ON BED AWAKE AND A/O X2, DJIBOUTIAN SPEAKING. ON O2 AT 2LPM VIA NASAL CANNULA TOLERATING WELL. NO SOB NOTED. NOT IN DISTRESS. WITH NO COMPLAINTS OF PAIN OR DISCOMFORT AT THIS TIME. WITH IV ACCESS AT LEFT FOREARM G20 WITH IVF NS 100ML/HR INFUSING WELL. SAFETY MEASURES IN PLACED. CALL LIGHT WITHIN REACH. BED ON LOWEST LOCKED POSITION, SIDE RAILS UP X2. WILL CONTINUE TO MONITOR.
[2022-02-26 08:00] VITALS: BP 100/41
[2022-02-26] MEDS: DONEPEZIL 5 MG TABLET PO SCH (08:57)
[2022-02-26] MEDS: NITROFURANTOIN/MONOHYDRATE MACROCRYSTALS 100 MG CAPSULE PO SCH (08:57)
[2022-02-26] MEDS: PANTOPRAZOLE 40 MG TABLET.DR PO SCH (08:57)
[2022-02-26] MEDS: GABAPENTIN 100 MG CAPSULE PO SCH ×2 (08:57→16:23)
[2022-02-26] MEDS: ACETAMINOPHEN ES 500 MG TABLET PO SCH ×2 (08:57→16:25)
[2022-02-26] MEDS: ARIPIPRAZOLE 2 MG TABLET PO SCH (08:57)
[2022-02-26] MEDS: DULOXETINE HCL 30 MG CAPSULE.DR PO SCH (08:58)
[2022-02-26] MEDS: DICYCLOMINE HCL 10 MG CAPSULE PO SCH ×2 (08:58→16:23)
[2022-02-26] MEDS: ENSURE ENLIVE CHOC 237 ML CAN PO SCH ×2 (08:58→16:25)
[2022-02-26] MEDS: ASPIRIN EC 81 MG TABLET.DR PO SCH (08:58)
[2022-02-26] MEDS: MEMANTINE HCL 5 MG TABLET PO SCH ×2 (09:00→16:24)
[2022-02-26] MEDS: MUPIROCIN OINT 2% 22 GM TUBE NS SCH ×2 (09:21→21:19)
[2022-02-26] MEDS: CLOTRIMAZOLE 1% 15 GM TUBE TP SCH ×2 (09:21→16:26)
[2022-02-26] MEDS: MEROPENEM 500 MG in IV NS 0.9% 50 ML IV SCH ×2 (13:06→21:19)
[2022-02-26] MEDS: SOD FERRIC GLUC 125 MG in IV NS 0.9% 100 ML IV SCH (14:50)
[2022-02-26] MEDS: ENOXAPARIN SODIUM 30 MG/0.3 ML DISP.SYRIN SQ SCH (14:51)
[2022-02-26 15:59] VITALS: BP 105/46
[2022-02-26] MEDS ORDERED: K PHOS NEUTRAL 250 MG TABLET PO ONE (16:00)
[2022-02-26 20:00] VITALS: BP 110/67
[2022-02-26] MEDS: ATORVASTATIN 10 MG TABLET PO SCH (21:49)
[2022-02-26] MEDS: METOPROLOL TARTRATE 50 MG TABLET PO SCH (21:50)
[2022-02-27] MEDS: MORPHINE SULFATE INJ 2 MG/ML DISP.SYRIN IV PRN (03:52)
--- NOTE | 2022-02-27 03:52 | NUR ---
Patient irritable screaming moaning facial grimacing and pointing at R foot. Medicated with PRN morphine as per order.
[2022-02-27] MEDS: MEROPENEM 500 MG in IV NS 0.9% 50 ML IV SCH ×3 (04:54→21:40)
--- NOTE | 2022-02-27 06:18 | NUR ---
Patient is currently A&Ox2 but woke up in episode of confusion overnight though staff was able to calm patient and was able to fall back asleep. Pain to R foot relieved by PRN Morphine as per order. Had Otherwise stable overnight. Tolerating IV ABX well, no adverse side effects. Dressing to R foot c/d/i. LFA#20G flushed and patent. No s/s of hypo or hyperglycemia. Currently resting in bed with no signs of distress. Bed alarm on. Safety measures in place.
[2022-02-27] MEDS: BLOOD SUGAR DIAGNOSTIC 1 EACH STRIP IN SCH ×4 (06:31→22:00)
[2022-02-27 06:41] LABS: BASOPHILS % (AUTO) 0.3 % (0.0-2.0); HEMATOCRIT 28 % (33-45); LYMPHOCYTES # (AUTO) 0.8 K/uL (0.8-4.8); LYMPHOCYTES % (AUTO) 14.7 % (20.0-44.0); MEAN CORPUSCULAR HGB CONC 32 g/dl (31.0-36.0); MEAN CORPUSCULAR VOLUME 88 fL (82-100); MONOCYTES # (AUTO) 0.4 K/uL (0.1-1.30); NEUTROPHILS # (AUTO) 4.1 K/uL (1.8-8.9); PLATELET COUNT (AUTO) 160 K/uL (150-450); RED BLOOD CELL COUNT(AUTO) 3.15 MIL/uL (4.0-5.2); WHITE BLOOD COUNT (AUTO) 5.3 K/uL (4.3-11.0)
[2022-02-27 06:57] LABS: CALCIUM, SERUM 7.7 mg/dL (8.5-10.1); CREATININE 0.6 mg/dL (0.6-1.3); MAGNESIUM 1.7 mg/dL (1.8-2.4); PHOSPHORUS 1.6 mg/dL (2.5-4.9); POTASSIUM 3.6 mmol/L (3.5-5.1)
[2022-02-27 08:00] VITALS: BP 136/86
--- NOTE | 2022-02-27 08:28 | NUR ---
RN OPENING NOTE PATIENT RECEIVED IN BED, AO X 2, ABLE TO RESPONDS ALL STIMULI. IN NO ACUTE DISTRESS NOTED. RESPIRATORY EVEN AND UNLABORED ON OXYGEN AT 2Ls. SKIN IS WARM TO TOUCH, KEEP CLEAN/DRY, INTACT IV SITE. KEPT ELEVATED HOB FOR ENSURE AIRWAY AND ASPIRATION PRECAUTION, ALSO LOWEST POSITION OF THE BED, S/R UP X 3 FOR SAFETY. ALL SAFETY PRECAUTION APPLIED. CALL LIGHT WITHIN REACH, WILL CONTINUE TO MONITOR.
[2022-02-27] MEDS: DICYCLOMINE HCL 10 MG CAPSULE PO SCH ×2 (08:40→16:53)
[2022-02-27] MEDS: DONEPEZIL 5 MG TABLET PO SCH (08:40)
[2022-02-27] MEDS: GABAPENTIN 100 MG CAPSULE PO SCH ×2 (08:40→16:53)
[2022-02-27] MEDS: ASPIRIN EC 81 MG TABLET.DR PO SCH (08:40)
[2022-02-27] MEDS: DULOXETINE HCL 30 MG CAPSULE.DR PO SCH (08:40)
[2022-02-27] MEDS: MEMANTINE HCL 5 MG TABLET PO SCH ×2 (08:41→16:53)
[2022-02-27] MEDS: ACETAMINOPHEN ES 500 MG TABLET PO SCH ×2 (08:41→16:53)
[2022-02-27] MEDS: PANTOPRAZOLE 40 MG TABLET.DR PO SCH (08:41)
[2022-02-27] MEDS: ENSURE ENLIVE CHOC 237 ML CAN PO SCH ×2 (08:42→17:06)
[2022-02-27] MEDS: CLOTRIMAZOLE 1% 15 GM TUBE TP SCH ×2 (08:43→16:57)
[2022-02-27] MEDS: MUPIROCIN OINT 2% 22 GM TUBE NS SCH ×2 (08:43→21:42)
[2022-02-27] MEDS: ARIPIPRAZOLE 2 MG TABLET PO SCH (08:46)
[2022-02-27] MEDS ORDERED: K PHOS NEUTRAL 250 MG TABLET PO ONE (10:00)
[2022-02-27] MEDS ORDERED: MAGNESIUM OXIDE 400 MG TABLET PO ONE (10:00)
[2022-02-27] MEDS ORDERED: FUROSEMIDE 20 MG/2 ML VIAL IV SCH (12:30)
[2022-02-27] MEDS: ALBUTEROL HALF STRENGTH 1.25 MG/3 ML VIAL.NEB NEB SCH ×3 (14:52→23:51)
[2022-02-27] MEDS: ENOXAPARIN SODIUM 30 MG/0.3 ML DISP.SYRIN SQ SCH (14:57)
[2022-02-27] MEDS: SOD FERRIC GLUC 125 MG in IV NS 0.9% 100 ML IV SCH (15:39)
[2022-02-27 16:00] VITALS: BP 129/79
--- NOTE | 2022-02-27 18:44 | NUR ---
RN CLOSE NOTE PATIENT IN BED, CONFUSED, IN NO ACUTE DISTRESS OBSERVED. RESPIRATION EVEN AND UNLABORED ON OXYGEN AT 3Ls. SKIN IS WARM TO TOUCH KEEP CLEAN//DRY, INTACT IV SITE. KEPT ELEVATED HOB FOR ENSURE AIRWAY AND ASPIRATION PRECAUTION. ALSO LOWEST POSITION OF THE BED FOR SAFETY. CALL LIGHT WITHIN REACH, WILL CONTINUE TO MONITOR.
--- NOTE | 2022-02-27 19:15 | NUR ---
MS RN OPENING NOTES: RECEIVED PATIENT IN BED, AWAKE, A/O X1, CONFUSED. NO S/S OF DISTRESS NOTED. NO COMPLAIN OF PAIN. CALL LIGHT WITHIN REACH. BED ALARM ON. BED IN LOWEST AND LOCKED POSITION. NO IV, PER REPORT PATIENT PULLED IT OUT. PER REPORT FROM JADA KHAN, PATIENT WAS SEEN BY PT TODAY ONLY STOOD UP BY THE BEDSIDE. WITH O2 AT 2L/MIN.
[2022-02-27 20:00] VITALS: BP 114/72
[2022-02-27] MEDS: METOPROLOL TARTRATE 50 MG TABLET PO SCH (21:41)
[2022-02-27] MEDS: ATORVASTATIN 10 MG TABLET PO SCH (21:41)
--- NOTE | 2022-02-27 22:08 | NUR ---
blood sugar 78, no insulin needed. patient drank ensure and finished the whole bottle.
[2022-02-28] MEDS: ALBUTEROL HALF STRENGTH 1.25 MG/3 ML VIAL.NEB NEB SCH ×6 (03:30→23:30)
[2022-02-28] MEDS: MEROPENEM 500 MG in IV NS 0.9% 50 ML IV SCH ×3 (04:42→21:23)
[2022-02-28 06:42] LABS: BASOPHILS % (AUTO) 0.5 % (0.0-2.0); EOSINOPHILS % (AUTO) 1.7 % (0.0-6.0); HEMATOCRIT 29 % (33-45); HEMOGLOBIN 9.4 g/dL (11.5-14.8); LYMPHOCYTES # (AUTO) 0.9 K/uL (0.8-4.8); LYMPHOCYTES % (AUTO) 20.1 % (20.0-44.0); MEAN CORPUSCULAR HGB CONC 32 g/dl (31.0-36.0); MEAN CORPUSCULAR VOLUME 88 fL (82-100); MONOCYTES # (AUTO) 0.6 K/uL (0.1-1.30); MONOCYTES % (AUTO) 12.4 % (2.0-12.0); NEUTROPHILS % (AUTO) 65.3 % (43.0-81.0); PLATELET COUNT (AUTO) 182 K/uL (150-450); RED BLOOD CELL COUNT(AUTO) 3.31 MIL/uL (4.0-5.2); WHITE BLOOD COUNT (AUTO) 4.5 K/uL (4.3-11.0)
[2022-02-28] MEDS: BLOOD SUGAR DIAGNOSTIC 1 EACH STRIP IN SCH ×4 (06:45→21:25)
[2022-02-28] MEDS: INSULIN REGULAR, HUMAN 100 UNIT/ML 3 ML VIAL SQ PRN ×2 (06:45→21:26)
--- NOTE | 2022-02-28 06:46 | NUR ---
blood sugar checked, 100, no insulin needed.
[2022-02-28 06:57] LABS: CALCIUM, SERUM 8.4 mg/dL (8.5-10.1); CARBON DIOXIDE 30 mmol/L (21-32); CHLORIDE 106 mmol/L (98-107); CREATININE 0.7 mg/dL (0.6-1.3); GLUCOSE 103 mg/dL (74-106); MAGNESIUM 1.8 mg/dL (1.8-2.4); POTASSIUM 3.2 mmol/L (3.5-5.1); SODIUM SERUM 144 mmol/L (136-145); UREA NITROGEN, BLOOD 8 mg/dL (7-18)
[2022-02-28] MEDS: PANTOPRAZOLE 40 MG TABLET.DR PO SCH (08:14)
[2022-02-28] MEDS: ACETAMINOPHEN ES 500 MG TABLET PO SCH ×2 (08:14→16:43)
[2022-02-28] MEDS: ASPIRIN EC 81 MG TABLET.DR PO SCH (08:14)
[2022-02-28] MEDS: DICYCLOMINE HCL 10 MG CAPSULE PO SCH ×2 (08:15→16:43)
[2022-02-28] MEDS: DULOXETINE HCL 30 MG CAPSULE.DR PO SCH (08:15)
[2022-02-28] MEDS: GABAPENTIN 100 MG CAPSULE PO SCH ×2 (08:15→16:43)
[2022-02-28] MEDS: DONEPEZIL 5 MG TABLET PO SCH (08:15)
[2022-02-28] MEDS: MEMANTINE HCL 5 MG TABLET PO SCH ×2 (08:15→16:43)
[2022-02-28 08:42] VITALS: BP 127/73
[2022-02-28] MEDS: CLOTRIMAZOLE 1% 15 GM TUBE TP SCH ×2 (08:48→16:59)
[2022-02-28] MEDS: MUPIROCIN OINT 2% 22 GM TUBE NS SCH ×2 (08:48→21:25)
[2022-02-28] MEDS: ENSURE ENLIVE CHOC 237 ML CAN PO SCH ×2 (08:55→17:00)
[2022-02-28] MEDS: ARIPIPRAZOLE 2 MG TABLET PO SCH (08:55)
[2022-02-28] MEDS ORDERED: POTASSIUM CHLORIDE 20 MEQ POWDER PACKET PO SCH (10:00)
[2022-02-28] MEDS ORDERED: FUROSEMIDE 40 MG/4 ML VIAL IV ONE (11:30)
[2022-02-28] MEDS: ENOXAPARIN SODIUM 30 MG/0.3 ML DISP.SYRIN SQ SCH (14:39)
[2022-02-28] MEDS: SOD FERRIC GLUC 125 MG in IV NS 0.9% 100 ML IV SCH (14:49)
[2022-02-28 16:01] VITALS: BP 139/83
--- NOTE | 2022-02-28 18:23 | NUR ---
RN CLOSING NOTES Patient lying in bed, no apparent distress noted, no shortness of breath, breathing even and unlabored, remained afebrile, no grimacing, denies any pain or discomfort. Patient has a IV peripheral line on right forearm and is getting IV ATB, (Meropenem), no s/s of infiltration, no redness, no swelling, no bleeding noted at this time. No s/s of hypo or hyperglycemia, no tremors, no change in level of consciousness. Patient has an order for soft wrist restraint for safety, visual check rendered every 15 minutes, patient repositioned frequently, no s/s of circulation impairment noted at this time, skin warm to touch, no pallor or cyanosis noted. All needs anticipated, kept clean and dry, patient turned and repositioned frequently, aspiration precautions rendered, safety precautions in place, frequent visual checks rendered, brakes locked, side rails up X 2, call light left within reach, will endorse to next shift for continuity of care.
--- NOTE | 2022-02-28 19:15 | NUR ---
MS RN OPENING NOTES: RECEIVED PATIENT IN BED, AWAKE, NO S/S OF DISTRESS NOTED. PATIENT IS CALM. CALL LIGHT WITHIN REACH. BED ALARM ON. BED IN LOWEST AND LOCKED POSITION. NO COMPLAIN OF PAIN. HOB ELEVATED. RESTRAINTS WAS DISCONTINUED BY THE DAYSHIFT JADA RODRIGUEZ.
--- NOTE | 2022-02-28 19:15 | NUR ---
HEELS OFFLOADED WITH PILLOWS.
[2022-02-28 19:57] VITALS: BP 135/85
[2022-02-28] MEDS: ATORVASTATIN 10 MG TABLET PO SCH (21:23)
[2022-02-28] MEDS: METOPROLOL TARTRATE 50 MG TABLET PO SCH (21:24)
[2022-03-01] MEDS: ALBUTEROL HALF STRENGTH 1.25 MG/3 ML VIAL.NEB NEB SCH ×7 (03:30→23:30)
[2022-03-01] MEDS: MEROPENEM 500 MG in IV NS 0.9% 50 ML IV SCH ×3 (04:44→21:48)
--- NOTE | 2022-03-01 06:30 | NUR ---
MS RN CLOSING NOTES: PATIENT IN BED, AWAKE, A/OX1, NO S/S OF DISTRESS NOTED. NO COMPLAIN OF PAIN. CALL LIGHT WITHIN REACH. BED ALARM ON. BED IN LOWEST AND LOCKED POSITION. HOB ELEVATED. HEELS OFFLOADED AT ALL TIMES. TURNED AND REPOSITIONED Q 2HOURS.
--- NOTE | 2022-03-01 07:30 | NUR ---
MS RN OPENING NOTE RECEIVED PATIENT AWAKE IN BED. A/O X 1, URDU SPEAKING. NO S/SX OF DISTRESS NOTED. NO SOB. NO C/O PAIN. BREATHING IS EVEN AND UNLABORED. PT ON 02 2L VIA NASAL CANNULA WITH 02 SATURATING AT 98%. IV ACCESS RFA#22G PATENT AND INTACT. SAFETY MEASURES IN PLACE WITH BED LOCKED IN LOW POSITION. SIDE RAILS UP X2. CALL LIGHT IS WITHIN REACH. WILL CONTINUE TO MONITOR PATIENT THROUGHOUT SHIFT.
[2022-03-01] MEDS: BLOOD SUGAR DIAGNOSTIC 1 EACH STRIP IN SCH ×4 (07:33→22:19)
[2022-03-01 07:52] LABS: CALCIUM, SERUM 8.4 mg/dL (8.5-10.1); CREATININE 0.8 mg/dL (0.6-1.3); POTASSIUM 3.5 mmol/L (3.5-5.1)
[2022-03-01 08:00] VITALS: BP 154/80
[2022-03-01] MEDS: ASPIRIN EC 81 MG TABLET.DR PO SCH (08:14)
[2022-03-01] MEDS: DONEPEZIL 5 MG TABLET PO SCH (08:14)
[2022-03-01] MEDS: ENSURE ENLIVE CHOC 237 ML CAN PO SCH ×2 (08:14→17:23)
[2022-03-01] MEDS: ACETAMINOPHEN ES 500 MG TABLET PO SCH ×2 (08:14→17:23)
[2022-03-01] MEDS: PANTOPRAZOLE 40 MG TABLET.DR PO SCH (08:14)
[2022-03-01] MEDS: GABAPENTIN 100 MG CAPSULE PO SCH ×2 (08:14→17:22)
[2022-03-01] MEDS: DICYCLOMINE HCL 10 MG CAPSULE PO SCH ×2 (08:14→17:23)
[2022-03-01] MEDS: MEMANTINE HCL 5 MG TABLET PO SCH ×2 (08:14→17:23)
[2022-03-01] MEDS: DULOXETINE HCL 30 MG CAPSULE.DR PO SCH (08:14)
[2022-03-01] MEDS: CLOTRIMAZOLE 1% 15 GM TUBE TP SCH ×2 (08:16→17:25)
[2022-03-01] MEDS: MUPIROCIN OINT 2% 22 GM TUBE NS SCH (08:16)
[2022-03-01] MEDS: ARIPIPRAZOLE 2 MG TABLET PO SCH (08:19)
--- NOTE | 2022-03-01 11:01 | NUR ---
RN NOTE PT WAS SEEN BY CHARMAINE HINOJOSA NP WITH NEW ORDER FOR PSYCH CONSULT. ORDERS READ BACK AND CARRIED OUT; FACE SHEET FAXED TO ON-CALL DR. BLOOM.
[2022-03-01 12:16] LABS: BASOPHILS % (AUTO) 0.4 % (0.0-2.0); EOSINOPHILS % (AUTO) 1.8 % (0.0-6.0); HEMATOCRIT 29 % (33-45); HEMOGLOBIN 9.2 g/dL (11.5-14.8); LYMPHOCYTES # (AUTO) 1.4 K/uL (0.8-4.8); LYMPHOCYTES % (AUTO) 25.2 % (20.0-44.0); MEAN CORPUSCULAR HGB CONC 32 g/dl (31.0-36.0); MEAN CORPUSCULAR VOLUME 88 fL (82-100); MONOCYTES # (AUTO) 0.5 K/uL (0.1-1.30); MONOCYTES % (AUTO) 9.6 % (2.0-12.0); NEUTROPHILS # (AUTO) 3.5 K/uL (1.8-8.9); PLATELET COUNT (AUTO) 177 K/uL (150-450); RED BLOOD CELL COUNT(AUTO) 3.26 MIL/uL (4.0-5.2); WHITE BLOOD COUNT (AUTO) 5.5 K/uL (4.3-11.0)
[2022-03-01] MEDS: ENOXAPARIN SODIUM 30 MG/0.3 ML DISP.SYRIN SQ SCH (14:09)
[2022-03-01] MEDS: SOD FERRIC GLUC 125 MG in IV NS 0.9% 100 ML IV SCH (14:37)
[2022-03-01 16:00] VITALS: BP 120/71
[2022-03-01] MEDS: FLUCONAZOLE (100 MG) 100 MG TABLET PO SCH (18:12)
--- NOTE | 2022-03-01 18:29 | NUR ---
MS RN CLOSING NOTE PATIENT IS AWAKE IN BED YELLING IN [place]. A/O X 2. WHEN ASKED IF PT NEEDS ANYTHING (WITH MIGUEL, RN NET APPLICATIONS DEVELOPER) PT DOES NOT RESPOND TO WHAT SHE NEEDS. NO S/SX OF DISTRESS NOTED. NO SOB. NO C/O PAIN. BREATHING IS EVEN WITH SLIGHT WHEEZING, UNLABORED. PT ON 02 2L VIA NASAL CANNULA WITH 02 SATURATING AT 98%. IV ACCESS RFA#22G PATENT AND INTACT. SAFETY MEASURES MAINTAINED. ALL NEEDS MET THROUGHOUT SHIFT. CALL LIGHT IS WITHIN REACH. WILL ENDORSE CONTINUITY OF CARE TO ONCOMING SHIFT.
[2022-03-01 20:00] VITALS: BP 129/77
--- NOTE | 2022-03-01 20:02 | NUR ---
MS JADA GANNON RECEIVED PATIENT IN BED. ALERT AND ORIENTED BUT MACEDONIAN SPEAKING ONLY. NO S/S OF APPARENT DISTRESS IN ROOM AIR. NO C/O PAIN. R. FOOT NOTED TO HAVE DRESSING WITH IDANIA-WRAP, WARM TO TOUCH, NO PALLOR. NO IV FLUIDS RUNNING AT THIS TIME. SAFETY IN PLACE. WILL CONTINUE WITH PATIENT'S PLAN OF CARE.
[2022-03-01] MEDS: VANCOMYCIN 1 GM in IV D5W 250ml IV SCH (20:10)
[2022-03-01] MEDS: ATORVASTATIN 10 MG TABLET PO SCH (22:14)
[2022-03-01] MEDS: METOPROLOL TARTRATE 50 MG TABLET PO SCH (22:15)
[2022-03-01] MEDS: INSULIN REGULAR, HUMAN 100 UNIT/ML 3 ML VIAL SQ PRN (22:20)
[2022-03-02] MEDS: ALBUTEROL HALF STRENGTH 1.25 MG/3 ML VIAL.NEB NEB SCH ×6 (03:30→23:01)
[2022-03-02] MEDS: MEROPENEM 500 MG in IV NS 0.9% 50 ML IV SCH ×3 (05:11→22:03)
[2022-03-02 06:30] LABS: CALCIUM, SERUM 8.3 mg/dL (8.5-10.1); CARBON DIOXIDE 30 mmol/L (21-32); CHLORIDE 106 mmol/L (98-107); CREATININE 0.9 mg/dL (0.6-1.3); GLUCOSE 97 mg/dL (74-106); MAGNESIUM 1.8 mg/dL (1.8-2.4); PHOSPHORUS 3.1 mg/dL (2.5-4.9); POTASSIUM 3.5 mmol/L (3.5-5.1); SODIUM SERUM 143 mmol/L (136-145); UREA NITROGEN, BLOOD 21 mg/dL (7-18)
[2022-03-02] MEDS: INSULIN REGULAR, HUMAN 100 UNIT/ML 3 ML VIAL SQ PRN ×3 (06:35→22:09)
[2022-03-02] MEDS: BLOOD SUGAR DIAGNOSTIC 1 EACH STRIP IN SCH ×4 (06:35→22:03)
--- NOTE | 2022-03-02 06:39 | NUR ---
RN CLOSING NOTE PATIENT IN BED WITH EYES CLOSED, EASY TO AROUSE. NO S/S OF APPARENT DISTRESS IN 2LPM OF 02 VIA NC. DENIES PAIN. ALL NEEDS ATTENDED. ALL SCHEDULED MEDICATIONS ADMINISTERED. SAFETY KEPT IN PLACE THE WHOLE SHIFT. NO SIGNIFICANT CHANGE SINCE LAST ENDORSEMENT. WILL ENDORSE TO MORNING SHIFT RN FOR CONTINUITY OF CARE,
[2022-03-02 06:50] LABS: BASOPHILS % (AUTO) 0.4 % (0.0-2.0); EOSINOPHILS % (AUTO) 2.2 % (0.0-6.0); HEMATOCRIT 29 % (33-45); HEMOGLOBIN 9.3 g/dL (11.5-14.8); LYMPHOCYTES # (AUTO) 1.1 K/uL (0.8-4.8); LYMPHOCYTES % (AUTO) 21.3 % (20.0-44.0); MEAN CORPUSCULAR HGB CONC 32 g/dl (31.0-36.0); MEAN CORPUSCULAR VOLUME 87 fL (82-100); MONOCYTES # (AUTO) 0.4 K/uL (0.1-1.30); MONOCYTES % (AUTO) 7.8 % (2.0-12.0); NEUTROPHILS # (AUTO) 3.5 K/uL (1.8-8.9); NEUTROPHILS % (AUTO) 68.3 % (43.0-81.0); PLATELET COUNT (AUTO) 180 K/uL (150-450); WHITE BLOOD COUNT (AUTO) 5.2 K/uL (4.3-11.0)
--- NOTE | 2022-03-02 07:21 | NUR ---
MS RN OPENING NOTE RECEIVED PATIENT AWAKE IN BED. A/O X 2, SWEDISH SPEAKING. NO S/SX OF DISTRESS NOTED. NO SOB. NO C/O PAIN. BREATHING IS EVEN AND UNLABORED. PT ON 02 2L VIA NASAL CANNULA WITH 02 SATURATING AT 98%. IV ACCESS RFA#22G PATENT AND INTACT. SAFETY MEASURES IN PLACE WITH BED LOCKED IN LOW POSITION. SIDE RAILS UP X2. CALL LIGHT IS WITHIN REACH. WILL CONTINUE TO MONITOR PATIENT THROUGHOUT SHIFT.
[2022-03-02] MEDS: ENSURE ENLIVE CHOC 237 ML CAN PO SCH ×2 (07:56→16:12)
[2022-03-02 08:00] VITALS: BP 134/73
[2022-03-02] MEDS: ACETAMINOPHEN ES 500 MG TABLET PO SCH ×2 (08:20→16:17)
[2022-03-02] MEDS: PANTOPRAZOLE 40 MG TABLET.DR PO SCH (08:20)
[2022-03-02] MEDS: DICYCLOMINE HCL 10 MG CAPSULE PO SCH ×2 (08:20→16:17)
[2022-03-02] MEDS: MEMANTINE HCL 5 MG TABLET PO SCH ×2 (08:20→16:17)
[2022-03-02] MEDS: VANCOMYCIN 1 GM in IV D5W 250ml IV SCH ×2 (08:20→20:15)
[2022-03-02] MEDS: DONEPEZIL 5 MG TABLET PO SCH (08:21)
[2022-03-02] MEDS: DULOXETINE HCL 30 MG CAPSULE.DR PO SCH (08:21)
[2022-03-02] MEDS: GABAPENTIN 100 MG CAPSULE PO SCH ×2 (08:21→16:17)
[2022-03-02] MEDS: FLUCONAZOLE (100 MG) 100 MG TABLET PO SCH (08:21)
[2022-03-02] MEDS: CLOTRIMAZOLE 1% 15 GM TUBE TP SCH ×2 (08:22→17:00)
[2022-03-02] MEDS: ARIPIPRAZOLE 2 MG TABLET PO SCH (08:23)
[2022-03-02] MEDS: ASPIRIN EC 81 MG TABLET.DR PO SCH (08:32)
[2022-03-02] MEDS: ENOXAPARIN SODIUM 30 MG/0.3 ML DISP.SYRIN SQ SCH (13:04)
--- NOTE | 2022-03-02 14:20 | NUR ---
RN NOTE IV SITE INFILTRATED D/T KINK IN CATHETER. DR. HINOJOSA ORDERED PICC LINE, AWAITING PICC LINE NURSE.
[2022-03-02 16:00] VITALS: BP 125/62
--- NOTE | 2022-03-02 17:52 | NUR ---
MS ELIAS NOTE CALLED PATIENT'S DAUGHTER FOR AN INFORMED CONSENT FOR PICC. CONSENT GIVEN AT THIS TIME. DARIO CRANE FOR PICC INSERTION EXPLAINED RISKS AND BENEFITS TO DAUGHTER. TELEPHONE CONSENT OBTAINED AND CHARTED. Addendum: 03/02/22 at 2037 by JENNIFER ANDERSON RN DISREGARD. WRONG TIME.
--- NOTE | 2022-03-02 18:56 | NUR ---
MS RN CLOSING NOTE PATIENT AWAKE IN BED. A/O X 2, PERSIAN SPEAKING. NO S/SX OF DISTRESS NOTED. NO SOB. NO C/O PAIN. BREATHING IS EVEN AND UNLABORED. PT ON 02 2L VIA NASAL CANNULA WITH 02 SATURATING AT 98%. NO IV ACCESS AT THIS TIME, AWAITING PICC LINE NURSE. SAFETY MEASURES IN PLACE WITH BED LOCKED IN LOW POSITION. SIDE RAILS UP X2. CALL LIGHT IS WITHIN REACH. WILL ENDORSE CONTINUITY OF CARE TO ONCOMING SHIFT.
--- NOTE | 2022-03-02 19:30 | NUR ---
MS RN OPENING RECEIVED PATIENT IN BED WITH EYES CLOSED. NO S/S OF APPARENT DISTRESS ON 2LPM OF O2 VIA NC. DENIES PAIN AT THIS TIME. NO LINES AT THIS TIME--- PATIENT WILL HAVE PICC INSERTION ENDORSED TO ME BY JADA JACOBSON. NO IV FLUIDS RUNNING AT THIS TIME. SAFETY IN PLACE. WILL CONTINUE WITH PATIENT'S PLAN OF CARE.
--- NOTE | 2022-03-02 19:52 | NUR ---
MS RN NOTE CALLED PATIENT'S DAUGHTER FOR AN INFORMED CONSENT FOR PICC. CONSENT GIVEN AT THIS TIME. DARIO CRANE FOR PICC INSERTION EXPLAINED RISKS AND BENEFITS TO DAUGHTER. TELEPHONE CONSENT OBTAINED AND CHARTED.
--- NOTE | 2022-03-02 19:52 | NUR ---
MS RN NOTE MIKEY (DAUGHTER) REQUESTING FOR MD TO CALL HER. PER MIKEY SHE HAS NOT HEARD FROM THE DOCTOR. NUMBER CHARTED IN FILE # AND/OR [phone]. ENDORSED TO CHARGE NURSE, ELOISA.
[2022-03-02 20:00] VITALS: BP 132/75
[2022-03-02] MEDS: methylPREDNISolone SOD SUCC 40 MG/ML VIAL IV SCH (20:14)
--- NOTE | 2022-03-02 20:15 | NUR ---
MS RN NOTE SOLU MEDROL GIVEN LATE-- ENDORSED BY MORNING RN. BECAUSE PATIENT HAD NO LINE. PICC LINE INSERTED IN L. FA. OK TO USE PER DARIO CRANE.
[2022-03-02] MEDS ORDERED: SOD FERRIC GLUC 62.5 MG/5 ML AMPUL IV ONE (20:40)
[2022-03-02] MEDS: SOD FERRIC GLUC 125 MG in IV NS 0.9% 100 ML IV SCH (21:16)
--- NOTE | 2022-03-02 21:27 | NUR ---
ms rn note sched 1400 ferrlecit hanged at this time-- as endorsed by morning rn.
[2022-03-02] MEDS: METOPROLOL TARTRATE 50 MG TABLET PO SCH (22:12)
[2022-03-02] MEDS: ATORVASTATIN 10 MG TABLET PO SCH (22:12)
--- NOTE | 2022-03-02 22:49 | NUR ---
RT NOTE TX GIVEN. NO SOB OR iNCREASE WOB NOTED. WILL CONTINUE TO MONITOR.
[2022-03-03] MEDS ORDERED: THERAHONEY GEL 1.5 OZ TUBE TP PRN (01:00)
[2022-03-03] MEDS: ALBUTEROL HALF STRENGTH 1.25 MG/3 ML VIAL.NEB NEB SCH ×6 (03:00→23:11)
[2022-03-03] MEDS: MORPHINE SULFATE INJ 2 MG/ML DISP.SYRIN IV PRN (03:34)
[2022-03-03] MEDS: MEROPENEM 500 MG in IV NS 0.9% 50 ML IV SCH ×3 (05:26→20:55)
[2022-03-03] MEDS: BLOOD SUGAR DIAGNOSTIC 1 EACH STRIP IN SCH ×4 (06:28→21:24)
[2022-03-03] MEDS: INSULIN REGULAR, HUMAN 100 UNIT/ML 3 ML VIAL SQ PRN ×4 (06:32→21:27)
--- NOTE | 2022-03-03 06:48 | NUR ---
RN CLOSING NOTE PATIENT IN BED WITH EYES CLOSED, EASY TO AROUSE. NO S/S OF APPARENT DISTRESS IN 2LPM OF 02 VIA NC. DENIES PAIN, WOUND CARE RENDERED, DRESSING CHANGED, PICTURE TAKEN. ALL NEEDS ATTENDED. ALL SCHEDULED MEDICATIONS ADMINISTERED. SAFETY KEPT IN PLACE THE WHOLE SHIFT. NO SIGNIFICANT CHANGE SINCE LAST ENDORSEMENT. WILL ENDORSE TO MORNING SHIFT RN FOR CONTINUITY OF CARE.
[2022-03-03 07:12] LABS: BASOPHILS % (AUTO) 0.1 % (0.0-2.0); EOSINOPHILS % (AUTO) 0.1 % (0.0-6.0); HEMATOCRIT 31 % (33-45); HEMOGLOBIN 9.8 g/dL (11.5-14.8); LYMPHOCYTES # (AUTO) 0.5 K/uL (0.8-4.8); LYMPHOCYTES % (AUTO) 14.8 % (20.0-44.0); MEAN CORPUSCULAR HGB CONC 32 g/dl (31.0-36.0); MEAN CORPUSCULAR VOLUME 88 fL (82-100); MONOCYTES # (AUTO) 0.1 K/uL (0.1-1.30); MONOCYTES % (AUTO) 2.1 % (2.0-12.0); NEUTROPHILS # (AUTO) 2.7 K/uL (1.8-8.9); NEUTROPHILS % (AUTO) 82.9 % (43.0-81.0); PLATELET COUNT (AUTO) 193 K/uL (150-450); RED BLOOD CELL COUNT(AUTO) 3.47 MIL/uL (4.0-5.2); WHITE BLOOD COUNT (AUTO) 3.2 K/uL (4.3-11.0)
--- NOTE | 2022-03-03 07:27 | NUR ---
MS RN OPENING NOTE RECEIVED PATIENT AWAKE IN BED. A/O X 2, KHMER SPEAKING ONLY. NO S/SX OF DISTRESS NOTED. NO SOB. NO C/O PAIN. BREATHING IS EVEN AND UNLABORED. PT ON 02 2L VIA NASAL CANNULA WITH 02 SATURATING AT 98%. IV ACCESS [place] PICC LINE PATENT AND INTACT-SL. SAFETY MEASURES IN PLACE WITH BED LOCKED IN LOW POSITION. SIDE RAILS UP X2. CALL LIGHT IS WITHIN REACH. WILL CONTINUE TO MONITOR PATIENT THROUGHOUT SHIFT.
[2022-03-03] MEDS: ENSURE ENLIVE CHOC 237 ML CAN PO SCH ×2 (07:55→17:23)
[2022-03-03 08:00] VITALS: BP 136/75
[2022-03-03] MEDS: DONEPEZIL 5 MG TABLET PO SCH (08:20)
[2022-03-03] MEDS: ASPIRIN EC 81 MG TABLET.DR PO SCH (08:20)
[2022-03-03] MEDS: PANTOPRAZOLE 40 MG TABLET.DR PO SCH (08:20)
[2022-03-03] MEDS: VANCOMYCIN 1 GM in IV D5W 250ml IV SCH (08:20)
[2022-03-03] MEDS: GABAPENTIN 100 MG CAPSULE PO SCH ×2 (08:20→17:17)
[2022-03-03] MEDS: DICYCLOMINE HCL 10 MG CAPSULE PO SCH ×2 (08:20→17:17)
[2022-03-03] MEDS: FLUCONAZOLE (100 MG) 100 MG TABLET PO SCH (08:20)
[2022-03-03] MEDS: ACETAMINOPHEN ES 500 MG TABLET PO SCH ×2 (08:21→17:17)
[2022-03-03] MEDS: MEMANTINE HCL 5 MG TABLET PO SCH ×2 (08:21→17:17)
[2022-03-03] MEDS: DULOXETINE HCL 30 MG CAPSULE.DR PO SCH (08:21)
[2022-03-03] MEDS: methylPREDNISolone SOD SUCC 40 MG/ML VIAL IV SCH ×2 (08:21→17:17)
[2022-03-03] MEDS: ERGOCALCIFEROL (VITAMIN D 2) 50,000 UNIT CAPSULE PO SCH (08:22)
[2022-03-03] MEDS: CLOTRIMAZOLE 1% 15 GM TUBE TP SCH ×2 (08:34→17:23)
[2022-03-03] MEDS: ARIPIPRAZOLE 2 MG TABLET PO SCH (08:36)
[2022-03-03 09:49] LABS: CALCIUM, SERUM 8.7 mg/dL (8.5-10.1); CREATININE 0.8 mg/dL (0.6-1.3); MAGNESIUM 1.9 mg/dL (1.8-2.4); PHOSPHORUS 2.7 mg/dL (2.5-4.9); POTASSIUM 4.2 mmol/L (3.5-5.1)
[2022-03-03] MEDS: ENOXAPARIN SODIUM 30 MG/0.3 ML DISP.SYRIN SQ SCH (13:25)
--- NOTE | 2022-03-03 15:46 | NUR ---
MS RN NOTE PT PULLED OUT PICC LINE. NOTIFIED DR. MOSES AND CHARGE NURSE, SAY WITH NEW ORDERS FOR REINSERTION. ORDERS READ BACK AND CARRIED OUT.
[2022-03-03 16:00] VITALS: BP_SYST 107; BP_SYST 136; BP_DIAS 63; BP_DIAS 75
--- NOTE | 2022-03-03 17:58 | NUR ---
RN NOTE ORDERS RECEIVED FROM DR. MOSES FOR BILATERAL SOFT RESTRAINTS D/T PATIENT PULLING LINES. PT SKIN CHECK AND CIRCULATION CHECK DONE; ORDERS READ BACK AND CARRIED OUT.
--- NOTE | 2022-03-03 19:15 | NUR ---
RN opening notes Pt is laying in bed comfortably watching TV. Pt is alert and orientedX2. Pt speaks Yakut and able to make needs known. On 2 L NC. No SOB. No S/S of distress noted. ADRIANE PICC line is clean and intact. Bilateral soft wrist restraint is in placed, skin is warm to touch and circulation is check all the time. safety precautions is maintained. Bed at low position, brakes locked, side rails upX3, hob elevated and call light is within reach. Will continue to monitor.
[2022-03-03 20:00] VITALS: BP 128/67
[2022-03-03] MEDS: ATORVASTATIN 10 MG TABLET PO SCH (21:29)
[2022-03-03] MEDS: METOPROLOL TARTRATE 50 MG TABLET PO SCH (21:29)
[2022-03-03] MEDS: VANCOMYCIN 0.75 GM in IV D5W 250 ML IV SCH (22:19)
--- NOTE | 2022-03-03 22:19 | NUR ---
RN notes Held Abdoul velazquez. Pt's vanco trough is 22.
[2022-03-04] MEDS: ALBUTEROL HALF STRENGTH 1.25 MG/3 ML VIAL.NEB NEB SCH ×6 (03:47→23:38)
[2022-03-04] MEDS: MEROPENEM 500 MG in IV NS 0.9% 50 ML IV SCH ×3 (04:00→20:09)
[2022-03-04] MEDS: BLOOD SUGAR DIAGNOSTIC 1 EACH STRIP IN SCH ×4 (06:33→21:09)
[2022-03-04] MEDS: INSULIN REGULAR, HUMAN 100 UNIT/ML 3 ML VIAL SQ PRN ×3 (06:35→21:14)
--- NOTE | 2022-03-04 06:40 | NUR ---
RN closing notes Pt is sitting in bed comfortably. Pt is alert and orientedX2 with episode of confusion. Pt speaks Mohawk and able to make needs known. On 2 L NC. No SOB. No S/S of distress noted. VS is stable. ADRIANE PICC line is clean and intact. Bilateral soft wrist restraint is in placed, skin is warm to touch and circulation is check all the time. Wound care provided as ordered. Kept Pt clean, dry and comfortable. safety precautions is maintained. Bed at low position, brakes locked, side rails upX3, hob elevated and call light is within reach. Will endorse to am nurse for DEN.
[2022-03-04 06:41] LABS: CALCIUM, SERUM 8.9 mg/dL (8.5-10.1); CARBON DIOXIDE 28 mmol/L (21-32); CHLORIDE 105 mmol/L (98-107); CREATININE 0.8 mg/dL (0.6-1.3); GLUCOSE 186 mg/dL (74-106); POTASSIUM 3.4 mmol/L (3.5-5.1); SODIUM SERUM 140 mmol/L (136-145); UREA NITROGEN, BLOOD 26 mg/dL (7-18)
[2022-03-04 07:22] LABS: HEMATOCRIT 26 % (33-45); HEMOGLOBIN 8.5 g/dL (11.5-14.8); LYMPHOCYTES # (AUTO) 0.6 K/uL (0.8-4.8); LYMPHOCYTES % (AUTO) 8.9 % (20.0-44.0); MEAN CORPUSCULAR HGB CONC 33 g/dl (31.0-36.0); MEAN CORPUSCULAR VOLUME 87 fL (82-100); MONOCYTES # (AUTO) 0.3 K/uL (0.1-1.30); MONOCYTES % (AUTO) 4.7 % (2.0-12.0); NEUTROPHILS # (AUTO) 5.5 K/uL (1.8-8.9); NEUTROPHILS % (AUTO) 86.4 % (43.0-81.0); PLATELET COUNT (AUTO) 230 K/uL (150-450); RED BLOOD CELL COUNT(AUTO) 2.99 MIL/uL (4.0-5.2); WHITE BLOOD COUNT (AUTO) 6.4 K/uL (4.3-11.0)
[2022-03-04] MEDS: PANTOPRAZOLE 40 MG TABLET.DR PO SCH (07:30)
--- NOTE | 2022-03-04 07:37 | NUR ---
MS RN OPENING NOTES RECEIVED PATIENT IN BED, AWAKE, A/O X2, CONFUSED, SCREAMING AT TIMES. PATIENT ON ROOM AIR; BREATHING EVEN AND UNLABORED, NO SOB NOTED. NO COMPLAINS OF PAIN. ADRIANE PICC PRESENT AND INTACT. SAFETY PRECAUTIONS IN PLACE; BED IN LOW POSITION AND LOCKED, RAILS UP X2, CALL LIGHT WITHIN REACH. WILL CONTINUE TO MONITOR PATIENT.
[2022-03-04 08:00] VITALS: BP 130/80
[2022-03-04] MEDS: CLOTRIMAZOLE 1% 15 GM TUBE TP SCH ×2 (08:24→16:17)
[2022-03-04] MEDS: ENSURE ENLIVE CHOC 237 ML CAN PO SCH ×2 (08:24→16:08)
[2022-03-04] MEDS: methylPREDNISolone SOD SUCC 40 MG/ML VIAL IV SCH ×2 (08:36→16:17)
[2022-03-04] MEDS: DONEPEZIL 5 MG TABLET PO SCH (08:37)
[2022-03-04] MEDS: DULOXETINE HCL 30 MG CAPSULE.DR PO SCH (08:37)
[2022-03-04] MEDS: ASPIRIN EC 81 MG TABLET.DR PO SCH (08:37)
[2022-03-04] MEDS: DICYCLOMINE HCL 10 MG CAPSULE PO SCH ×2 (08:37→16:08)
[2022-03-04] MEDS: ARIPIPRAZOLE 2 MG TABLET PO SCH (08:37)
[2022-03-04] MEDS: ACETAMINOPHEN ES 500 MG TABLET PO SCH ×2 (08:38→16:08)
[2022-03-04] MEDS: MEMANTINE HCL 5 MG TABLET PO SCH ×2 (08:38→16:08)
[2022-03-04] MEDS: GABAPENTIN 100 MG CAPSULE PO SCH ×2 (08:38→16:08)
[2022-03-04] MEDS: FLUCONAZOLE (100 MG) 100 MG TABLET PO SCH (08:38)
[2022-03-04] MEDS ORDERED: POTASSIUM CHLORIDE 20 MEQ TAB.PRT.SR PO SCH (10:00)
[2022-03-04] MEDS: VANCOMYCIN 0.75 GM in IV D5W 250 ML IV SCH ×2 (10:10→22:01)
[2022-03-04] MEDS ORDERED: POTASSIUM CHLORIDE 20 MEQ TAB.PRT.SR PO ONE (13:00)
[2022-03-04] MEDS: ENOXAPARIN SODIUM 30 MG/0.3 ML DISP.SYRIN SQ SCH (13:18)
[2022-03-04 16:00] VITALS: BP 136/76
--- NOTE | 2022-03-04 18:54 | NUR ---
MS RN CLOSING NOTES PATIENT REMAINS IN BED, AWAKE, A/O X2, CONFUSED, ON AND OFF SCREAMING FOR ATTENTION. PATIENT ON O2 AT 2 LPM VIA NASAL CANULA WITH BREATHING TREATMENTS Q 4 HRS DURING THE DAY; BREATHING EVEN AND UNLABORED, NO SOB NOTED DURING THE DAY. NO COMPLAINS OF PAIN. ADRIANE PICC PRESENT AND INTACT. ALL NEEDS ATTENDED DURING THE DAY. SAFETY PRECAUTIONS IN PLACE; BED IN LOW POSITION AND LOCKED, RAILS UP X2, CALL LIGHT WITHIN REACH. WILL ENDORSE TO STARCH FACTORY LABORER NURSE FOR DEN.
--- NOTE | 2022-03-04 19:15 | NUR ---
RN opening notes Pt is sitting in bed comfortably watching TV. Pt is alert and orientedX2 with episode of confusion. Pt speaks Malay and able to make needs known. On 3 L NC. No SOB. No S/S of distress noted. ADRIANE PICC line is clean and intact. safety precautions is maintained. Bed at low position, brakes locked, side rails upX3, hob elevated and call light is within reach. Will continue to monitor.
--- NOTE | 2022-03-04 19:28 | NUR ---
RN notes Spoke with Pharmacy, Ivan regarding vanco abx for tonight. Informed that Pt's vanco trough on 03/03 was 22. Ivan said it's okay to give tonight.
[2022-03-04 20:00] VITALS: BP 147/76
--- NOTE | 2022-03-04 20:05 | NUR ---
RN notes Released the restraints. Pt is calm and able to follow commands. sitter at the bedside. Charge nurse is aware and informed.
[2022-03-04] MEDS: ATORVASTATIN 10 MG TABLET PO SCH (21:04)
[2022-03-04] MEDS: METOPROLOL TARTRATE 50 MG TABLET PO SCH (21:05)
[2022-03-04] MEDS: MORPHINE SULFATE INJ 2 MG/ML DISP.SYRIN IV PRN (23:11)
--- NOTE | 2022-03-04 23:12 | NUR ---
RN notes Pt is screaming, irritable and pointing to R foot during dressing change. Pt stated "No Touch!! administered morphine 1 mg as ordered for pain. VS is stable. safety precautions is maintained. Will continue to monitor.
[2022-03-05] MEDS: ALBUTEROL HALF STRENGTH 1.25 MG/3 ML VIAL.NEB NEB SCH ×6 (04:04→23:25)
[2022-03-05] MEDS: MEROPENEM 500 MG in IV NS 0.9% 50 ML IV SCH (04:41)
--- NOTE | 2022-03-05 06:40 | NUR ---
RN closing notes Pt is sitting in bed awake. Pt is alert and orientedX2 with episode of confusion. On 3 L NC. No SOB. No S/S of distress noted. VS is stable. Afebrile. routine meds were given as ordered. ADRIANE PICC line is clean and intact. Wound care provided as ordered. Kept Pt clean, dry and comfortable. safety precautions is maintained. Bed at low position, brakes locked, side rails upX3, hob elevated and call light is within reach. Will endorse to am nurse for DEN.
[2022-03-05 06:44] LABS: HEMATOCRIT 27 % (33-45); HEMOGLOBIN 8.8 g/dL (11.5-14.8); LYMPHOCYTES # (AUTO) 0.6 K/uL (0.8-4.8); LYMPHOCYTES % (AUTO) 10.2 % (20.0-44.0); MEAN CORPUSCULAR HGB CONC 32 g/dl (31.0-36.0); MEAN CORPUSCULAR VOLUME 88 fL (82-100); MONOCYTES # (AUTO) 0.4 K/uL (0.1-1.30); MONOCYTES % (AUTO) 7.2 % (2.0-12.0); NEUTROPHILS # (AUTO) 4.6 K/uL (1.8-8.9); NEUTROPHILS % (AUTO) 82.6 % (43.0-81.0); PLATELET COUNT (AUTO) 237 K/uL (150-450); RED BLOOD CELL COUNT(AUTO) 3.09 MIL/uL (4.0-5.2); WHITE BLOOD COUNT (AUTO) 5.6 K/uL (4.3-11.0)
[2022-03-05] MEDS: BLOOD SUGAR DIAGNOSTIC 1 EACH STRIP IN SCH ×4 (06:44→21:49)
[2022-03-05] MEDS: INSULIN REGULAR, HUMAN 100 UNIT/ML 3 ML VIAL SQ PRN ×4 (06:45→21:55)
--- NOTE | 2022-03-05 07:28 | NUR ---
MS RN OPENING NOTES RECEIVED PATIENT IN BED, AWAKE, A/O X2, CONFUSED, SCREAMING AT TIMES. PATIENT ON ROOM AIR; BREATHING EVEN AND UNLABORED, NO SOB NOTED. NO COMPLAINS OF PAIN. ADRIANE PICC PRESENT AND INTACT. SITTER AT BEDSIDE, PER REPORT RESTLESS THROUGHOUT THE NIGHT. SAFETY PRECAUTIONS IN PLACE; BED IN LOW POSITION AND LOCKED, RAILS UP X2, CALL LIGHT WITHIN REACH. WILL CONTINUE TO MONITOR
[2022-03-05 08:25] LABS: CALCIUM, SERUM 8.7 mg/dL (8.5-10.1); CREATININE 0.7 mg/dL (0.6-1.3); POTASSIUM 3.1 mmol/L (3.5-5.1)
[2022-03-05] MEDS: MEMANTINE HCL 5 MG TABLET PO SCH ×2 (08:27→16:29)
[2022-03-05] MEDS: GABAPENTIN 100 MG CAPSULE PO SCH ×2 (08:27→16:30)
[2022-03-05] MEDS: ACETAMINOPHEN ES 500 MG TABLET PO SCH ×2 (08:27→16:29)
[2022-03-05] MEDS: PANTOPRAZOLE 40 MG TABLET.DR PO SCH (08:27)
[2022-03-05] MEDS: ASPIRIN EC 81 MG TABLET.DR PO SCH (08:27)
[2022-03-05] MEDS: DULOXETINE HCL 30 MG CAPSULE.DR PO SCH (08:27)
[2022-03-05] MEDS: DONEPEZIL 5 MG TABLET PO SCH (08:27)
[2022-03-05] MEDS: DICYCLOMINE HCL 10 MG CAPSULE PO SCH ×2 (08:27→16:29)
[2022-03-05] MEDS: FLUCONAZOLE (100 MG) 100 MG TABLET PO SCH (08:27)
[2022-03-05] MEDS: ARIPIPRAZOLE 2 MG TABLET PO SCH (08:27)
[2022-03-05] MEDS: ENSURE ENLIVE CHOC 237 ML CAN PO SCH ×2 (08:28→16:43)
[2022-03-05] MEDS: methylPREDNISolone SOD SUCC 40 MG/ML VIAL IV SCH ×2 (08:28→16:29)
[2022-03-05] MEDS: CLOTRIMAZOLE 1% 15 GM TUBE TP SCH ×2 (08:28→16:30)
[2022-03-05] MEDS: MORPHINE SULFATE INJ 2 MG/ML DISP.SYRIN IV PRN ×2 (09:32→16:29)
[2022-03-05] MEDS: POTASSIUM CHLORIDE 20 MEQ TAB.PRT.SR PO SCH ×2 (09:33→09:34)
[2022-03-05] MEDS: VANCOMYCIN 0.75 GM in IV D5W 250 ML IV SCH ×2 (11:06→22:37)
[2022-03-05] MEDS: ENOXAPARIN SODIUM 30 MG/0.3 ML DISP.SYRIN SQ SCH (13:45)
--- NOTE | 2022-03-05 18:22 | NUR ---
MS RN CLOSING NOTES PATIENT REMAINS IN BED, AWAKE, A/O X2, CONFUSED, ON AND OFF SCREAMING FOR ATTENTION. PATIENT ON O2 AT 2 LPM VIA NASAL CANULA WITH BREATHING TREATMENTS Q 4 HRS DURING THE DAY; BREATHING EVEN AND UNLABORED, NO SOB NOTED DURING THE DAY. NO COMPLAINS OF PAIN. ADRIANE PICC PRESENT AND INTACT. ALL NEEDS ATTENDED DURING THE DAY. PATIENT WAS GIVEN PRN PAIN MEDICATION DURING THE SHIFT, VITALS MAINTAINED WNL. ALL MEDICATIONS GIVEN ORDERED. SAFETY PRECAUTIONS IN PLACE; BED IN LOW POSITION AND LOCKED, RAILS UP X2, CALL LIGHT WITHIN REACH. WILL ENDORSE TO ONCOMING SHIFT
--- NOTE | 2022-03-05 19:45 | NUR ---
MS RN OPENING NOTES RECEIVED PATIENT LAYING AWAKE IN BED. A/O X2. PATIENT WITH REGULAR AND UNLABORED BREATHING ON 3 LPM VIA NASAL CANULA TOLERATED WELL. NO SIGNS AND SYMPTOMS OF DISTRESS NOTED AT THIS TIME. NO COMPLAINS OF PAIN OR DISCOMFORT AT THIS TIME. IV ACCESS ADRIANE PICC LINE SL. IV ACCESS PATENT AND INTACT. SAFETY PRECAUTIONS ENFORCED WITH BED LOCKED AND AT LOWEST POSITION. CALL LIGHT WITHIN REACH AT ALL TIMES. WILL CONTINUE TO MONITOR PATIENT.
[2022-03-05 20:00] VITALS: BP 128/63
[2022-03-05] MEDS: METOPROLOL TARTRATE 50 MG TABLET PO SCH (21:03)
[2022-03-05] MEDS: ATORVASTATIN 10 MG TABLET PO SCH (21:03)
[2022-03-05] MEDS ORDERED: LORAZEPAM 1 MG TABLET PO ONE (21:30)
[2022-03-06] MEDS: ALBUTEROL HALF STRENGTH 1.25 MG/3 ML VIAL.NEB NEB SCH ×5 (03:30→20:14)
[2022-03-06] MEDS: BLOOD SUGAR DIAGNOSTIC 1 EACH STRIP IN SCH ×4 (06:30→21:47)
[2022-03-06] MEDS: INSULIN REGULAR, HUMAN 100 UNIT/ML 3 ML VIAL SQ PRN ×5 (06:32→21:55)
[2022-03-06 06:38] LABS: CALCIUM, SERUM 8.7 mg/dL (8.5-10.1); CARBON DIOXIDE 29 mmol/L (21-32); CHLORIDE 107 mmol/L (98-107); CREATININE 0.7 mg/dL (0.6-1.3); GLUCOSE 175 mg/dL (74-106); POTASSIUM 4.7 mmol/L (3.5-5.1); SODIUM SERUM 141 mmol/L (136-145); UREA NITROGEN, BLOOD 26 mg/dL (7-18)
--- NOTE | 2022-03-06 06:59 | NUR ---
MS RN CLOSING NOTES PATIENT SLEEPING IN BED EASILY AROUSABLE. A/O X2. PATIENT WITH REGULAR AND UNLABORED BREATHING ON 3 LPM VIA NASAL CANULA TOLERATED WELL. NO SIGNS AND SYMPTOMS OF DISTRESS NOTED AT THIS TIME. NO COMPLAINS OF PAIN OR DISCOMFORT AT THIS TIME. IV ACCESS ADRIANE PICC LINE SL. IV ACCESS PATENT AND INTACT. SAFETY PRECAUTIONS ENFORCED WITH BED LOCKED AND AT LOWEST POSITION. CALL LIGHT WITHIN REACH AT ALL TIMES. WILL ENDORSE CONTINUITY OF CARE TO DAY SHIFT NURSE.
[2022-03-06] MEDS: PANTOPRAZOLE 40 MG TABLET.DR PO SCH (07:44)
[2022-03-06] MEDS: ENSURE ENLIVE CHOC 237 ML CAN PO SCH ×2 (07:51→17:07)
[2022-03-06] MEDS: FLUCONAZOLE (100 MG) 100 MG TABLET PO SCH (08:15)
[2022-03-06] MEDS: MEMANTINE HCL 5 MG TABLET PO SCH ×2 (08:16→16:53)
[2022-03-06] MEDS: ACETAMINOPHEN ES 500 MG TABLET PO SCH ×2 (08:16→16:53)
[2022-03-06] MEDS: DULOXETINE HCL 30 MG CAPSULE.DR PO SCH (08:16)
[2022-03-06] MEDS: DICYCLOMINE HCL 10 MG CAPSULE PO SCH ×2 (08:16→16:52)
[2022-03-06] MEDS: methylPREDNISolone SOD SUCC 40 MG/ML VIAL IV SCH ×2 (08:17→16:51)
[2022-03-06] MEDS: ARIPIPRAZOLE 2 MG TABLET PO SCH (08:17)
[2022-03-06] MEDS: GABAPENTIN 100 MG CAPSULE PO SCH ×2 (08:17→16:51)
[2022-03-06] MEDS: DONEPEZIL 5 MG TABLET PO SCH (08:17)
[2022-03-06] MEDS: ASPIRIN EC 81 MG TABLET.DR PO SCH (08:18)
--- NOTE | 2022-03-06 08:22 | NUR ---
RT NOTE Per RN tx held, Pt sleeping. No resp distress noted at this time.
[2022-03-06] MEDS: CLOTRIMAZOLE 1% 15 GM TUBE TP SCH ×2 (09:00→17:01)
[2022-03-06] MEDS: VANCOMYCIN 0.75 GM in IV D5W 250 ML IV SCH ×2 (11:04→23:20)
[2022-03-06] MEDS: ENOXAPARIN SODIUM 30 MG/0.3 ML DISP.SYRIN SQ SCH (15:05)
[2022-03-06 16:00] VITALS: BP 121/61
[2022-03-06] MEDS ORDERED: DAPT500V2 IV (16:51)
[2022-03-06] MEDS ORDERED: FLUC100T PO (16:51)
--- NOTE | 2022-03-06 18:49 | NUR ---
MS RN CLOSING NOTES PATIENT REMAINS IN BED, AWAKE, A/O X2, CONFUSED, ON AND OFF SCREAMING FOR ATTENTION. PATIENT ON O2 AT 2 LPM VIA NASAL CANULA WITH BREATHING TREATMENTS Q 4 HRS DURING THE DAY; BREATHING EVEN AND UNLABORED, NO SOB NOTED DURING THE DAY. NO COMPLAINS OF PAIN. ADRIANE PICC PRESENT AND INTACT. ALL NEEDS ATTENDED DURING THE DAY. ALL MEDICATIONS GIVEN ORDERED. SAFETY PRECAUTIONS IN PLACE; BED IN LOW POSITION AND LOCKED, RAILS UP X2, CALL LIGHT WITHIN REACH. WILL ENDORSE TO ONCOMING SHIFT
--- NOTE | 2022-03-06 19:30 | NUR ---
MS RN OPENING RECEIVED PATIENT IN BED WITH EYES CLOSED, EASY TO AROUSE. NO S/S OF APPARENT DISTRESS ON 3LPM OF O2 VIA NC. PICC LINE IN PLACE, NO IV FLUIDS RUNNING AT THIS TIME. SAFETY IN PLACE. D/D ORDER IN PLACE. WILL CONTINUE TO MONITOR PATIENT.
[2022-03-06 20:00] VITALS: BP 130/73
[2022-03-06] MEDS: ATORVASTATIN 10 MG TABLET PO SCH (21:58)
[2022-03-06] MEDS: METOPROLOL TARTRATE 50 MG TABLET PO SCH (21:59)
[2022-03-07] MEDS: ALBUTEROL HALF STRENGTH 1.25 MG/3 ML VIAL.NEB NEB SCH ×5 (00:09→16:36)
[2022-03-07] MEDS: BLOOD SUGAR DIAGNOSTIC 1 EACH STRIP IN SCH ×3 (06:41→17:08)
[2022-03-07] MEDS: INSULIN REGULAR, HUMAN 100 UNIT/ML 3 ML VIAL SQ PRN ×3 (06:46→17:10)
[2022-03-07 06:49] LABS: CREATININE 0.9 mg/dL (0.6-1.3); POTASSIUM 3.9 mmol/L (3.5-5.1)
--- NOTE | 2022-03-07 07:05 | NUR ---
RN CLOSING NOTES NO SIGNIFICANT CHANGE WITH PATIENT. NEEDS ATTENDED. ALL SCHEDULED MEDS ADMINISTERED. WILL ENDORSE TO MORNING SHIFT RN. DISCHARGE ORDER IN PLACE.
[2022-03-07 07:08] LABS: CALCIUM, SERUM 8.6 mg/dL (8.5-10.1)
--- NOTE | 2022-03-07 07:20 | NUR ---
MS RN OPENING NOTES RECEIVED PATIENT IN BED, AWAKE, A/O X2. PATIENT ON RA, TOLERATING WELL. BREATHING EVEN AND UNLABORED. NOT IN ANY SIGN OF RESPIRATORY DISTRESS. DENIES PAIN OR DISCOMFORT AT THIS TIME. ADRIANE PICC INTACT. SAFETY PRECAUTIONS IN PLACE; BED IN LOWEST POSITION AND LOCKED, SIDE RAILS UP X2, BED ALARM IN PLACE AND WORKING. CALL LIGHT WITHIN REACH. WILL TO MONITOR PT.
[2022-03-07 08:00] VITALS: BP 141/81
[2022-03-07] MEDS: PANTOPRAZOLE 40 MG TABLET.DR PO SCH (08:26)
[2022-03-07] MEDS: ENSURE ENLIVE CHOC 237 ML CAN PO SCH ×2 (09:17→17:19)
[2022-03-07] MEDS: DONEPEZIL 5 MG TABLET PO SCH (09:46)
[2022-03-07] MEDS: DULOXETINE HCL 30 MG CAPSULE.DR PO SCH (09:46)
[2022-03-07] MEDS: FLUCONAZOLE (100 MG) 100 MG TABLET PO SCH (09:46)
[2022-03-07] MEDS: ARIPIPRAZOLE 2 MG TABLET PO SCH (09:46)
[2022-03-07] MEDS: ASPIRIN EC 81 MG TABLET.DR PO SCH (09:46)
[2022-03-07] MEDS: ACETAMINOPHEN ES 500 MG TABLET PO SCH ×2 (09:46→16:49)
[2022-03-07] MEDS: GABAPENTIN 100 MG CAPSULE PO SCH ×2 (09:46→16:49)
[2022-03-07] MEDS: DICYCLOMINE HCL 10 MG CAPSULE PO SCH ×2 (09:46→16:49)
[2022-03-07] MEDS: MEMANTINE HCL 5 MG TABLET PO SCH ×2 (09:46→16:49)
[2022-03-07] MEDS: methylPREDNISolone SOD SUCC 40 MG/ML VIAL IV SCH ×2 (09:46→16:48)
[2022-03-07] MEDS: CLOTRIMAZOLE 1% 15 GM TUBE TP SCH ×2 (10:11→17:16)
[2022-03-07] MEDS: VANCOMYCIN 0.75 GM in IV D5W 250 ML IV SCH (11:01)
[2022-03-07] MEDS: ENOXAPARIN SODIUM 30 MG/0.3 ML DISP.SYRIN SQ SCH (14:13)
[2022-03-07 16:00] VITALS: BP 146/69
--- NOTE | 2022-03-07 18:01 | NUR ---
RN DISCHARGED NOTES PT DISCHARGED HOME WITH HH IN STABLE CONDITION. PT IS A/O X2. FORGETFUL, CONFUSED AND FOLLOWS SIMPLE COMMANDS. V/S TAKEN, STABLE AND RECORDED. ALL BELONGINGS ACCOUNTED FOR. PHOTOS OF SKIN ISSUES TAKEN AND FILED IN HER CHART. PICC LINE ON ADRIANE ARM NOT REMOVE, PT WILL CONTINUE TO RECEIVED IV ABX AT HOME. HEALTH TEACHINGS GIVEN EARLIER TO SON WERO AND VERBALIZED UNDERSTANDING. REPORT GIVEN TO PORCELAIN ENAMEL SPRAYER AND HANDED EXIT FOLDER. PT LEFT UNIT AT 1730 VIA GURNEY ACCOMPANIED BY 2 EMT'S FROM [facility]. MD AND CHARGE NURSE AWARE OF DISCHARGE.
== END 2022-03-07 17:00 | disposition home health service (06) | DRG 853 ==
LOC: ER 09:54 → MED 12:41
PROVIDERS: ADMIT Legal Medicine; ATTEND Legal Medicine
PROC: 0QBN0ZZ Excision of Right Metatarsal, Open Approach (ICD-10-PCS; principal; 2022-02-24)
PROC: 02HV33Z Insertion of Infusion Device into Superior Vena Cava, Percutaneous Approach (ICD-10-PCS; 2022-03-02)
PROC: B548ZZA Ultrasonography of Superior Vena Cava, Guidance (ICD-10-PCS; 2022-03-02)
PROC: 02HV33Z Insertion of Infusion Device into Superior Vena Cava, Percutaneous Approach (ICD-10-PCS; 2022-03-03)
PROC: B548ZZA Ultrasonography of Superior Vena Cava, Guidance (ICD-10-PCS; 2022-03-03)
DX: A41.9 Sepsis, unspecified organism (principal); G92.8 Other toxic encephalopathy; N17.0 Acute kidney failure with tubular necrosis; N39.0 Urinary tract infection, site not specified; M86.171 Other acute osteomyelitis, right ankle and foot; Z16.12 Extended spectrum beta lactamase (ESBL) resistance; F03.91 Unspecified dementia, unspecified severity, with behavioral disturbance; E86.0 Dehydration; I10 Essential (primary) hypertension; E11.69 Type 2 diabetes mellitus with other specified complication; L97.519 Non-pressure chronic ulcer of other part of right foot with unspecified severity; E11.51 Type 2 diabetes mellitus with diabetic peripheral angiopathy without gangrene; E11.42 Type 2 diabetes mellitus with diabetic polyneuropathy; E11.621 Type 2 diabetes mellitus with foot ulcer; B96.20 Unspecified Escherichia coli [E. coli] as the cause of diseases classified elsewhere; E78.5 Hyperlipidemia, unspecified; F41.9 Anxiety disorder, unspecified; I50.9 Heart failure, unspecified; I11.0 Hypertensive heart disease with heart failure; M19.90 Unspecified osteoarthritis, unspecified site; Z79.899 Other long term (current) drug therapy; R53.1 Weakness; M79.671 Pain in right foot; D63.8 Anemia in other chronic diseases classified elsewhere; R62.7 Adult failure to thrive; Z68.29 Body mass index [BMI] 29.0-29.9, adult; F32.9 Major depressive disorder, single episode, unspecified
CPT/HCPCS: 36415; 36569; 71045-TC; 73718-TC; 80048-TC; 80076-TC; 80202-TC; 81001; 82040-TC; 82962-TC; 83735-TC; 84100-TC; 84484-TC; 85025-TC; 85610-TC; 85652-TC; 87070-TC; 87075-TC; 87081-TC; 87086-TC; 87186-TC; 88305-TC; 88311-TC; 93307-TC; 93926-TC; 94799-TC; 97110-TC; 97112-TC; 97116-TC; 97530-TC; A6403; G0378; J0690; J0696; J1650; J1815; J1940; J2185; J2270; J2405; J2704; J2765; J2916; J2920; J3010; J3370; J3480; J3490; J7030; J7050; J7060

== ENCOUNTER 2022-03-19 19:11 | Inpatient (IN) | payer MEDICARE, OTHER ==
[~2022-03-19] VITALS: Ht 157.5 cm; Wt 65.3 kg
[~2022-03-19 19:11] MED LIST changes: +ACET-2605 PO; +ARIP2TAB3 PO; +DAPT500V2 IV; +DICY10CA13 PO; +DULO60CA45 PO; +FLUC100T PO; +GABA-532 PO; +LEVO250T59 PO; -LORA-259 PO; +MEMA1CAP5 PO; +METO50TA16 PO; +ROSU5TAB PO; +SOLI5TAB2 PO; +VALS40TA4 PO
[2022-03-19 19:58] LABS: CALCIUM, SERUM 9.7 mg/dL (8.5-10.1); CARBON DIOXIDE 23 mmol/L (21-32); CHLORIDE 105 mmol/L (98-107); CREATININE 1.5 mg/dL (0.6-1.3); GLUCOSE 239 mg/dL (74-106); POTASSIUM 4.3 mmol/L (3.5-5.1); SODIUM SERUM 139 mmol/L (136-145); UREA NITROGEN, BLOOD 27 mg/dL (7-18)
[2022-03-19 20:04] LABS: ALANINE AMINOTRANSFERASE 17 U/L (12-78); ALKALINE PHOSPHATASE 50 U/L (46-116); ASPARTATE AMINOTRANSFERASE 22 U/L (15-37); BILIRUBIN,DIRECT 0.1 mg/dL (0.0-0.2); BILIRUBIN,TOTAL 0.2 mg/dL (0.2-1.0)
[2022-03-19 20:27] LABS: BASOPHILS # (AUTO) 0.1 K/uL (0.0-0.2); BASOPHILS % (AUTO) 0.3 % (0.0-2.0); EOSINOPHILS % (AUTO) 0.2 % (0.0-6.0); HEMATOCRIT 36 % (33-45); HEMOGLOBIN 11.1 g/dL (11.5-14.8); LYMPHOCYTES # (AUTO) 1.9 K/uL (0.8-4.8); LYMPHOCYTES % (AUTO) 10.8 % (20.0-44.0); MEAN CORPUSCULAR HGB CONC 31 g/dl (31.0-36.0); MEAN CORPUSCULAR VOLUME 91 fL (82-100); MONOCYTES # (AUTO) 1.2 K/uL (0.1-1.30); NEUTROPHILS # (AUTO) 14.4 K/uL (1.8-8.9); NEUTROPHILS % (AUTO) 81.7 % (43.0-81.0); PLATELET COUNT (AUTO) 198 K/uL (150-450); RED BLOOD CELL COUNT(AUTO) 3.91 MIL/uL (4.0-5.2); WHITE BLOOD COUNT (AUTO) 17.7 K/uL (4.3-11.0)
[2022-03-19] MEDS ORDERED: IV NS 0.9% 500 ML BAG IV ONE (20:30)
--- NOTE | 2022-03-19 20:55 | NUR ---
DR. AURELIA ZARCO
--- NOTE | 2022-03-19 20:59 | NUR ---
[phone] [facility]
[2022-03-19] MEDS ORDERED: PIPERACILLIN /TAZOBACTAM 3.375 G in IV D5W 50 ML IV ONE (21:00)
[2022-03-19] MEDS ORDERED: DAPTOMYCIN 500 MG in IV NS 0.9% 50 ML IV SCH (21:00)
--- NOTE | 2022-03-19 21:01 | NUR ---
RT G COMPLETED, RESULTS GIVEN TO DR. BETTENCOURT
[2022-03-19] MEDS ORDERED: PIPERACILLIN /TAZOBACTAM 3.375 G VIAL IV ONE (21:16)
--- NOTE | 2022-03-19 22:10 | NUR ---
report given to Neena REED).
--- NOTE | 2022-03-19 22:13 | NUR ---
CRUZ NON ADMINISTERED, MEDICATION IS NOT AVAILABLE.DR BETTENCOURT MADE AWARE. GIVE IT IN THE MORNING.
--- NOTE | 2022-03-19 22:15 | NUR ---
Nathaniel ruiz in ED - 03/19/22 at 2218 by JEVON Patient discharged to home in stable condition. RX,Written and verbal after care instructions given. Patient verbalizes understanding of instruction.
--- NOTE | 2022-03-19 22:32 | NUR ---
report given to moon REED).
[2022-03-19] MEDS ORDERED: ACETAMINOPHEN 650 MG/SUPP.RECT RC PRN (23:00)
[2022-03-19] MEDS ORDERED: NOREPINEPHRINE 8 MG in IV NS 0.9% 242 ML IV PRN (23:00)
[2022-03-19] MEDS ORDERED: ONDANSETRON HCL/PF 4 MG/2 ML VIAL IV PRN (23:00)
[2022-03-19] MEDS ORDERED: DEXTROSE 50%-WATER 50 ML DISP.SYRIN IV PRN (23:00)
--- NOTE | 2022-03-19 23:06 | NUR ---
pt transferred to icu per acls protocol.
[2022-03-19] MEDS: IV NS 0.9% 1,000 ML IV PRN (23:39)
[2022-03-19] MEDS: BLOOD SUGAR DIAGNOSTIC 1 EACH STRIP IN SCH (23:57)
[2022-03-19] MEDS: FAMOTIDINE/PF INJ 20 MG/2 ML VIAL IV SCH (23:58)
[2022-03-20] VITALS (12 sets, daily range): BP systolic 106–146; BP diastolic 51–75
[2022-03-20 00:01] LABS: ABG BASE EXCESS -5.5 mmol/L; ABG PCO2 40.1 mmHg (35.0-45.0); ABG PH 7.319 (7.350-7.450); ABG PO2 87.7 mmHg (75.0-100.0); COHb 0.3 % (0.5-1.5); MetHb 0.2 % (0.0-1.5); SITE, ABG Left Radial; VENT MODE, BG SM
[2022-03-20] MEDS ORDERED: INSULIN REGULAR, HUMAN 100 UNIT/ML 3 ML VIAL ONE ×2 (00:01→00:02)
[2022-03-20] MEDS: INSULIN REGULAR, HUMAN 100 UNIT/ML 3 ML VIAL SQ PRN ×3 (00:05→18:23)
[2022-03-20] MEDS: IPRATROPIUM NEB FS 0.5 MG/2.5 ML AMPUL.NEB NEB SCH ×7 (00:15→23:27)
--- NOTE | 2022-03-20 01:44 | NUR ---
ADMISSION, RECEIVED THE PT FROM ER VIA [facility]. ADMITTED FOR RESP/ FAILURE, SEPSIS, AIRCRAFT RIGGING AND CONTROLS MECHANIC SHOWING S TACH. IV RT UPPER ARM PICC LINE PT AWAKE ALERT LETHARGIC.OXYGEN 10L VIA SIMPLE MASK. HOB ELEVATED. IV RT UPPERARM PICC LINE. IVF NS 75 ML/H. HOB ELEVATED. FC PATENT. URINE DRAINING. WILL CONTINUE TO MONITOR VITALS
[2022-03-20 02:58] LABS: BILIRUBIN,URINE NEGATIVE (NEGATIVE); COLOR,URINE YELLOW (YELLOW); LEUKOCYTE ESTERASE ,URINE LARGE (NEGATIVE); NITRITE, URINE NEGATIVE (NEGATIVE); PROTEIN,URINE 100 mg/dl (NEGATIVE); UGLUCOSE NEGATIVE (NEGATIVE); UROBILINOGEN,URINE 0.2 EU/dL (0.2)
[2022-03-20] MEDS ORDERED: ZOSYN IVPB 3.375 G in IV D5W 50ml IV ONE (03:00)
[2022-03-20 03:02] LABS: BACTERIA,URINE 4+ /HPF (None Seen); WBC,URINE TOO NUMEROUS TO COUN /HPF (0-3)
[2022-03-20 03:03] LABS: SQUAMOUS EPITHELIAL CELL,UR Few /HPF (None Seen)
[2022-03-20 04:08] LABS: CALCIUM, SERUM 8.8 mg/dL (8.5-10.1); CARBON DIOXIDE 24 mmol/L (21-32); CHLORIDE 106 mmol/L (98-107); CREATININE 1.1 mg/dL (0.6-1.3); GLUCOSE 165 mg/dL (74-106); MAGNESIUM 1.6 mg/dL (1.8-2.4); POTASSIUM 4.3 mmol/L (3.5-5.1); SODIUM SERUM 140 mmol/L (136-145); UREA NITROGEN, BLOOD 23 mg/dL (7-18)
[2022-03-20 04:21] LABS: BASOPHILS % (AUTO) 0.3 % (0.0-2.0); EOSINOPHILS % (AUTO) 0.1 % (0.0-6.0); HEMATOCRIT 32 % (33-45); HEMOGLOBIN 10.4 g/dL (11.5-14.8); LYMPHOCYTES # (AUTO) 0.8 K/uL (0.8-4.8); LYMPHOCYTES % (AUTO) 10.1 % (20.0-44.0); MEAN CORPUSCULAR HGB CONC 32 g/dl (31.0-36.0); MEAN CORPUSCULAR VOLUME 90 fL (82-100); MONOCYTES # (AUTO) 0.4 K/uL (0.1-1.30); MONOCYTES % (AUTO) 5.2 % (2.0-12.0); NEUTROPHILS # (AUTO) 6.8 K/uL (1.8-8.9); NEUTROPHILS % (AUTO) 84.3 % (43.0-81.0); PLATELET COUNT (AUTO) 137 K/uL (150-450); RED BLOOD CELL COUNT(AUTO) 3.57 MIL/uL (4.0-5.2); WHITE BLOOD COUNT (AUTO) 8.1 K/uL (4.3-11.0)
[2022-03-20] MEDS ORDERED: PIPERACILLIN /TAZOBACTAM 3.375 G VIAL IV ONE (04:45)
[2022-03-20] MEDS: BLOOD SUGAR DIAGNOSTIC 1 EACH STRIP IN SCH ×3 (05:23→18:16)
--- NOTE | 2022-03-20 08:00 | NUR ---
RN NOTE RECEIVED PATIENT A/OX1, CONFUSED, ON O2-4LNC, NO ACUTE RESPIRATORY DISTRESS. INFUSING NS @75 ML/HR ON ADRIANE PICC LINE INTACT.PATIENT NPO. BOWDEN DRAINING CLOUDY OUTPUT SEDIMENTS . DUE MEDICATION ADMINISTERED . ASSIST TURN AND REPOSTION Q 2HR. CALL LIGHT WITHIN TO REACH. WILL FOLLOW UP.
[2022-03-20] MEDS ORDERED: ACETAMINOPHEN 650 MG/SUPP.RECT RC PRN (09:10)
[2022-03-20] MEDS ORDERED: ONDANSETRON HCL/PF 4 MG/2 ML VIAL IV PRN (09:11)
[2022-03-20] MEDS: Magnesium 1GM/D5W 100ML PREMIX 100 ML IV SCH ×2 (10:24→11:33)
[2022-03-20] MEDS: DAPTOMYCIN 500 MG in IV NS 0.9% 50 ML IV SCH (10:24)
[2022-03-20] MEDS: FAMOTIDINE/PF INJ 20 MG/2 ML VIAL IV SCH ×2 (10:24→21:54)
[2022-03-20] MEDS: ENOXAPARIN SODIUM 30 MG/0.3 ML DISP.SYRIN SQ SCH (10:31)
[2022-03-20] MEDS ORDERED: PIPERACILLIN /TAZOBACTAM 3.375 G in IV D5W 50 ML IV SCH (12:00)
[2022-03-20] MEDS: PIPERACILLIN /TAZOBACTAM 3.375 G in IV D5W 100 ML IV SCH ×2 (12:24→20:23)
--- NOTE | 2022-03-20 13:00 | NUR ---
RN NOTES BS143 MG/DL. [facility], NEW ORDERS TAKEN AND CARRIED OUT.
--- NOTE | 2022-03-20 14:00 | NUR ---
RN NOTES NOTIFIED MD MOSES ABOUT DIET , AND [facility].ORDER TAKEN AND CARRIED OUT.
--- NOTE | 2022-03-20 15:50 | NUR ---
RN NOTES TRANSFERRED PATIENT TO THE [facility] WITH STABLE CONDITION,PATIENT CONFUSED, NO ACUTE RESPIRATORY DISTRESS, INFUSING NS@75 ML/HR ON ADRIANE INTACT. BOWDEN OUTPUT WAS 900ML. BEDSIDE REPORT GIVEN RN FOLLOW PLAN OF CARE.
--- NOTE | 2022-03-20 16:00 | NUR ---
RN NOTES ROXANA icu NURSE TRANSFERRED PATIENT TO THE [facility] WITH STABLE CONDITION,PATIENT CONFUSED, NO ACUTE RESPIRATORY DISTRESS, INFUSING NS@75 ML/HR ON ADRIANE INTACT. BOWDEN WAS IN PLACED. PATIENT TRIED TO PULL iv AND COME OUT OF BED RESTRAINED PLACED @ 1620 .
[2022-03-20] MEDS: MEMANTINE HCL 5 MG TABLET PO SCH (16:50)
[2022-03-20] MEDS: DICYCLOMINE HCL 10 MG CAPSULE PO SCH (16:50)
[2022-03-20] MEDS: MECLIZINE HCL 12.5 MG TABLET PO SCH (16:51)
[2022-03-20] MEDS: GABAPENTIN 100 MG CAPSULE PO SCH (16:51)
[2022-03-20] MEDS: ACETAMINOPHEN ES 500 MG TABLET PO SCH (16:53)
[2022-03-20] MEDS: IV NS 0.9% 1,000 ML IV PRN (18:39)
--- NOTE | 2022-03-20 19:02 | NUR ---
RN CLOSING NOTES NO SIGNIFICANT CHANGES THROUGHOUT THE SHIFT. PT IS A/O X 2. PT HAS ADRIANE PICC LINE. ON NC 4L, TOLERATING WELL WITH O2 SAT OF 97%. NO SOB NOTED. NO S/SX OF ACUTE DISTRESS NOTED. ALL DUE MEDS GIVEN ORDERED. ALL NEEDS ATTENDED TO. ALL SAFETY MEASURES IMPLEMENTED. BED IN LOWEST POSITION, LOCKED IN PLACE. CALL LIGHT WITHIN REACH. WILL ENDORSE TO AM SHIFT FOR DEN.
--- NOTE | 2022-03-20 20:10 | NUR ---
HAND REAMER OPENING NOTES: RECEIVED PATIENT AWAKE ACCOMPANIED BY FAMILY, BED IN LOW POSITION, CALL LIGHTS WITHIN REACH, NO COMPLAIN OF PAIN AND DISCOMFORT AT THIS TIME, ON TELE MONITORING ST-106 STABLE ON O2 INHALATION AT 3LPM SATURATING WELL, WITH ADRIANE PICC LINE WITH ONGOING NSS@75ML PER HOUR INFUSING WELL, PATIENT ON CRUSH MEDICATION, HOB UPRIGHT AT ALL TIME, PATIENT KEPT CLEAN AND DRY ALL NEEDS MET WILL CONTINUE TO MONITOR.
[2022-03-20] MEDS: ATORVASTATIN 10 MG TABLET PO SCH (21:54)
[2022-03-20] MEDS: METOPROLOL TARTRATE 50 MG TABLET PO SCH (21:55)
[2022-03-21] VITALS (7 sets, daily range): BP systolic 105–130; BP diastolic 54–68
--- NOTE | 2022-03-21 00:04 | NUR ---
RN NOTES: BS-114- NO INSULIN GIVEN OUT OF PARAMETER
[2022-03-21] MEDS: IPRATROPIUM NEB FS 0.5 MG/2.5 ML AMPUL.NEB NEB SCH ×5 (03:21→20:32)
[2022-03-21] MEDS: PIPERACILLIN /TAZOBACTAM 3.375 G in IV D5W 100 ML IV SCH ×3 (04:12→20:45)
--- NOTE | 2022-03-21 05:55 | NUR ---
RN NOTES: 0600- BLOOD SUGAR-100 NO NSULIN GIVEN PER SLIDING SCALE
[2022-03-21] MEDS: BLOOD SUGAR DIAGNOSTIC 1 EACH STRIP IN SCH ×4 (06:00→23:05)
--- NOTE | 2022-03-21 06:19 | NUR ---
RN CLOSING NOTES; PATIENT SLEEP IN BED COMFORTABLY, AROUSABLE TO VERBAL STIMULI, BED IN LOW POSITION ,CALL LIGHTS WITHIN REACH, NO COMPLAIN OF PAIN AND DISCOMFORT AT THIS TIME, ON TELE MONITORING SR-88, WITHIN ADRIANE PICC LINE WITH ONGOING NSS@75ML PER/HR INFUSING WELL, ON O2 INHALATION AT 4LPM SATURATING WELL, PATIENT KEPT CLEAN AND DRY ALL NEEDS MET ENDORSE TO INCOMING SHIFT.
[2022-03-21 07:09] LABS: BASOPHILS % (AUTO) 0.4 % (0.0-2.0); EOSINOPHILS % (AUTO) 2.9 % (0.0-6.0); HEMATOCRIT 27 % (33-45); HEMOGLOBIN 8.8 g/dL (11.5-14.8); LYMPHOCYTES % (AUTO) 13.1 % (20.0-44.0); MEAN CORPUSCULAR HGB CONC 33 g/dl (31.0-36.0); MEAN CORPUSCULAR VOLUME 91 fL (82-100); MONOCYTES # (AUTO) 0.4 K/uL (0.1-1.30); MONOCYTES % (AUTO) 5.1 % (2.0-12.0); NEUTROPHILS # (AUTO) 6.3 K/uL (1.8-8.9); NEUTROPHILS % (AUTO) 78.5 % (43.0-81.0); PLATELET COUNT (AUTO) 115 K/uL (150-450); RED BLOOD CELL COUNT(AUTO) 2.98 MIL/uL (4.0-5.2)
[2022-03-21 07:20] LABS: CALCIUM, SERUM 8.3 mg/dL (8.5-10.1)
[2022-03-21] MEDS ORDERED: VALSARTAN PO SCH (09:00)
[2022-03-21] MEDS: ACETAMINOPHEN ES 500 MG TABLET PO SCH ×2 (09:46→16:51)
[2022-03-21] MEDS: DAPTOMYCIN 500 MG in IV NS 0.9% 50 ML IV SCH (09:46)
[2022-03-21] MEDS: ENOXAPARIN SODIUM 30 MG/0.3 ML DISP.SYRIN SQ SCH (09:47)
[2022-03-21] MEDS: DICYCLOMINE HCL 10 MG CAPSULE PO SCH ×2 (09:48→16:51)
[2022-03-21] MEDS: DULOXETINE HCL 30 MG CAPSULE.DR PO SCH (09:49)
[2022-03-21] MEDS: MECLIZINE HCL 12.5 MG TABLET PO SCH ×2 (09:49→16:51)
[2022-03-21] MEDS: FLUCONAZOLE (100 MG) 100 MG TABLET PO SCH (09:49)
[2022-03-21] MEDS: MEMANTINE HCL 5 MG TABLET PO SCH ×2 (09:49→16:51)
[2022-03-21] MEDS: DONEPEZIL 5 MG TABLET PO SCH (09:49)
[2022-03-21] MEDS: ARIPIPRAZOLE 2 MG TABLET PO SCH (09:50)
[2022-03-21] MEDS: ASPIRIN EC 81 MG TABLET.DR PO SCH (09:50)
[2022-03-21] MEDS: GABAPENTIN 100 MG CAPSULE PO SCH ×2 (12:04→16:51)
[2022-03-21] MEDS: FAMOTIDINE (20 MG) 20 MG TABLET PO SCH ×2 (12:04→21:03)
[2022-03-21] MEDS: INSULIN REGULAR, HUMAN 100 UNIT/ML 3 ML VIAL SQ PRN (12:12)
--- NOTE | 2022-03-21 20:00 | NUR ---
RECEIVED PATIENT IN BED, ALERT/AWAKE, CONFUSED AT TIMES, 4LPM VIA NC, SPO2 99%, NO SOB, BREATHING TX SCHEDULED, INCONTINENT OF BOWEL AND BLADDER, TELE READING SR, RIGHT TOE OSTEOMYELITIS, WITH DRESSING, OFFLOADED, ADRIANE PICC LINE, NS AT 75 ML/HR, CCHO 60 GMS DIET, CRUSHED MEDS WITH APPLE SAUCE, BOWDEN CATHETER DRAINING,KEPT SAFE, WILL CONTINUE TO MONITOR.
--- NOTE | 2022-03-21 20:24 | NUR ---
RN CLOSING NOTES NO SIGNIFICANT CHANGES THROUGHOUT THE SHIFT. PT IS A/O X 1. PT HAS ADRIANE PICC LINE. ON NC 4L, TOLERATING WELL WITH O2 SAT OF 97%. NO SOB NOTED. NO S/SX OF ACUTE DISTRESS NOTED. PATIENT VISITED BY DRUM STRAIGHTENER AND THE STITCHES REMOVED AND THE ORDER FOR WOUND CARE IS IN PLACE. ALL DUE MEDS GIVEN ORDERED. ALL NEEDS ATTENDED TO. ALL SAFETY MEASURES IMPLEMENTED. BED IN LOWEST POSITION, LOCKED IN PLACE. CALL LIGHT WITHIN REACH. WILL ENDORSE TO AM SHIFT FOR DEN.
[2022-03-21] MEDS: ATORVASTATIN 10 MG TABLET PO SCH (21:03)
[2022-03-21] MEDS: METOPROLOL TARTRATE 50 MG TABLET PO SCH (21:58)
--- NOTE | 2022-03-21 21:59 | NUR ---
METOPROLOL 50MG PO HELD, BP 95/56 HR 89
[2022-03-21] MEDS: INSULIN REGULAR, HUMAN 100 UNIT/ML 3 ML VIAL SQ SCH (22:46)
--- NOTE | 2022-03-21 22:47 | NUR ---
ACCUCHECK CHANGED TO ACHS, NO LONGER NPO. BG 119 MG/DL, NO INSULIN GIVEN
[2022-03-21] MEDS: IV NS 0.9% 1,000 ML IV PRN (23:56)
[2022-03-22 00:14] VITALS: BP 124/70
[2022-03-22] MEDS: IPRATROPIUM NEB FS 0.5 MG/2.5 ML AMPUL.NEB NEB SCH ×7 (00:23→23:54)
[2022-03-22 04:00] VITALS: BP 130/68
[2022-03-22] MEDS: PIPERACILLIN /TAZOBACTAM 3.375 G in IV D5W 100 ML IV SCH ×3 (04:24→19:50)
[2022-03-22 06:27] LABS: BASOPHILS % (AUTO) 0.3 % (0.0-2.0); HEMATOCRIT 29 % (33-45); HEMOGLOBIN 9.3 g/dL (11.5-14.8); LYMPHOCYTES # (AUTO) 0.8 K/uL (0.8-4.8); LYMPHOCYTES % (AUTO) 9.1 % (20.0-44.0); MEAN CORPUSCULAR HGB CONC 33 g/dl (31.0-36.0); MEAN CORPUSCULAR VOLUME 91 fL (82-100); MONOCYTES # (AUTO) 0.6 K/uL (0.1-1.30); MONOCYTES % (AUTO) 7.2 % (2.0-12.0); NEUTROPHILS # (AUTO) 6.9 K/uL (1.8-8.9); NEUTROPHILS % (AUTO) 80.4 % (43.0-81.0); PLATELET COUNT (AUTO) 112 K/uL (150-450); RED BLOOD CELL COUNT(AUTO) 3.16 MIL/uL (4.0-5.2); WHITE BLOOD COUNT (AUTO) 8.5 K/uL (4.3-11.0)
[2022-03-22 06:38] LABS: CREATININE 0.8 mg/dL (0.6-1.3); POTASSIUM 3.6 mmol/L (3.5-5.1)
--- NOTE | 2022-03-22 06:44 | NUR ---
ALERT/ORIENTED X1, 4LPM VIA NC, NO DISTRESS, NOT IN APPARENT PAIN, BILATERAL WRISTS RESTRAINTS, WITH CONFUSION, PULLING OUT IV LINE, RIGHT TOE STITCHES REMOVED BY POLICY ADVISER, WOUND CARE DAILY, WILL FOLLOW UP WITH XRAY, ST EVAL DONE, UPGRADED DIET TO CCHO 60 GM, CRUSHED MEDS WITH APPLE SAUCE, CONTINUE ZOSYN, IVF.
[2022-03-22] MEDS: INSULIN REGULAR, HUMAN 100 UNIT/ML 3 ML VIAL SQ SCH ×4 (06:48→21:33)
[2022-03-22] MEDS: BLOOD SUGAR DIAGNOSTIC 1 EACH STRIP IN SCH ×4 (06:51→21:29)
--- NOTE | 2022-03-22 07:41 | NUR ---
FRAMING MECHANIC OPENING NOTES: PATIENT ENDORSE BY OUTGOING NURSE FOR CONTINUITY OF CARE, BED IN LOW POSITION, CALL LIGHTS WITHIN REACH, NO COMPLAIN OF PAIN AND DISCOMFORT AT THIS TIME, ON TELE MONITORING, STABLE ON O2 INHALATION AT 3LPM SATURATING WELL, WITH ADRIANE PICC LINE WITH ONGOING NSS@75ML PER HOUR INFUSING WELL, PATIENT ON CRUSH MEDICATION, HOB UPRIGHT AT ALL TIME, PATIENT KEPT CLEAN AND DRY ALL NEEDS MET WILL CONTINUE TO MONITOR.
[2022-03-22 08:00] VITALS: BP 126/66
[2022-03-22] MEDS: GABAPENTIN 100 MG CAPSULE PO SCH ×2 (08:22→16:10)
[2022-03-22] MEDS: DONEPEZIL 5 MG TABLET PO SCH (08:22)
[2022-03-22] MEDS: ACETAMINOPHEN ES 500 MG TABLET PO SCH ×2 (08:22→16:09)
[2022-03-22] MEDS: ASPIRIN EC 81 MG TABLET.DR PO SCH (08:22)
[2022-03-22] MEDS: MECLIZINE HCL 12.5 MG TABLET PO SCH ×2 (08:22→16:10)
[2022-03-22] MEDS: DULOXETINE HCL 30 MG CAPSULE.DR PO SCH (08:22)
[2022-03-22] MEDS: FLUCONAZOLE (100 MG) 100 MG TABLET PO SCH (08:23)
[2022-03-22] MEDS: MEMANTINE HCL 5 MG TABLET PO SCH ×2 (08:23→16:10)
[2022-03-22] MEDS: ARIPIPRAZOLE 2 MG TABLET PO SCH (08:23)
[2022-03-22] MEDS: FAMOTIDINE (20 MG) 20 MG TABLET PO SCH ×2 (08:23→21:32)
[2022-03-22] MEDS: ENOXAPARIN SODIUM 30 MG/0.3 ML DISP.SYRIN SQ SCH (08:24)
[2022-03-22] MEDS: DICYCLOMINE HCL 10 MG CAPSULE PO SCH ×2 (08:27→16:10)
[2022-03-22] MEDS: DAPTOMYCIN 500 MG in IV NS 0.9% 50 ML IV SCH (09:50)
[2022-03-22 12:00] VITALS: BP 109/70
[2022-03-22 16:00] VITALS: BP 137/85
--- NOTE | 2022-03-22 19:03 | NUR ---
RN CLOSING NOTES NO SIGNIFICANT CHANGES THROUGHOUT THE SHIFT. PT IS A/O X 1. PT HAS ADRIANE PICC LINE. ON NC 4L, TOLERATING WELL. NO SOB NOTED. NO S/SX OF ACUTE DISTRESS NOTED. PATIENT VISITED BY SEPTIC TANK SETTER AND THE STITCHES REMOVED AND THE ORDER FOR WOUND CARE IS IN PLACE. ALL DUE MEDS GIVEN ORDERED. ALL NEEDS ATTENDED TO. ALL SAFETY MEASURES IMPLEMENTED. BED IN LOWEST POSITION, LOCKED IN PLACE. CALL LIGHT WITHIN REACH. WILL ENDORSE TO AM SHIFT FOR DEN
--- NOTE | 2022-03-22 19:25 | NUR ---
RN NOTE RECEIVED PT AWAKE IN BED, A/OX1, VERBAL, CONFUSED. NO S/S OF PAIN NOTED. ON O2 @3LPM VIA NC. NO RESPIRATORY DISTRESS NOTED. IV ACCESS ADRIANE PICC LINE IN PLACE, RUNNING NS @75ML/HR. F/C INTACT, DRAINING CLEAR YELLOW URINE. PT IN NO ACUTE DISTRESS. SAFETY MEASURES IN PLACE. WILL CONT TO MONITOR.
[2022-03-22 20:00] VITALS: BP 121/70
--- NOTE | 2022-03-22 20:25 | NUR ---
RN NOTE NOTED RA PICC LINE WAS PULLED OUT BY PT. SLIGHT BLEEDING NOTED. APPLIED PRESSURE AND GAUZE DRESSING PLACED. WILL CONT TO MONITOR. RESTARTED IV TO R-HAND #22G X1 WITH GOOD BLOOD RETURN AND MARGA WELL.
[2022-03-22] MEDS: ATORVASTATIN 10 MG TABLET PO SCH (21:32)
[2022-03-22] MEDS: METOPROLOL TARTRATE 50 MG TABLET PO SCH (21:32)
[2022-03-23] VITALS: BP 150/67
[2022-03-23] MEDS: IV NS 0.9% 1,000 ML IV PRN (02:07)
[2022-03-23 04:00] VITALS: BP 140/70
[2022-03-23] MEDS: PIPERACILLIN /TAZOBACTAM 3.375 G in IV D5W 100 ML IV SCH ×3 (04:04→19:40)
[2022-03-23] MEDS: IPRATROPIUM NEB FS 0.5 MG/2.5 ML AMPUL.NEB NEB SCH ×6 (04:09→23:50)
[2022-03-23 06:12] LABS: BASOPHILS # (AUTO) 0.1 K/uL (0.0-0.2); BASOPHILS % (AUTO) 0.6 % (0.0-2.0); EOSINOPHILS % (AUTO) 2.5 % (0.0-6.0); HEMATOCRIT 27 % (33-45); HEMOGLOBIN 8.7 g/dL (11.5-14.8); LYMPHOCYTES % (AUTO) 10.2 % (20.0-44.0); MEAN CORPUSCULAR HGB CONC 32 g/dl (31.0-36.0); MEAN CORPUSCULAR VOLUME 89 fL (82-100); MONOCYTES # (AUTO) 0.7 K/uL (0.1-1.30); MONOCYTES % (AUTO) 6.7 % (2.0-12.0); PLATELET COUNT (AUTO) 179 K/uL (150-450); RED BLOOD CELL COUNT(AUTO) 3.02 MIL/uL (4.0-5.2)
[2022-03-23 06:20] LABS: CALCIUM, SERUM 8.3 mg/dL (8.5-10.1); CARBON DIOXIDE 27 mmol/L (21-32); CHLORIDE 108 mmol/L (98-107); CREATININE 0.8 mg/dL (0.6-1.3); GLUCOSE 114 mg/dL (74-106); PHOSPHORUS 1.7 mg/dL (2.5-4.9); POTASSIUM 3.1 mmol/L (3.5-5.1); SODIUM SERUM 142 mmol/L (136-145); UREA NITROGEN, BLOOD 14 mg/dL (7-18)
[2022-03-23] MEDS: BLOOD SUGAR DIAGNOSTIC 1 EACH STRIP IN SCH ×4 (07:02→22:01)
[2022-03-23] MEDS: INSULIN REGULAR, HUMAN 100 UNIT/ML 3 ML VIAL SQ SCH ×4 (07:03→22:00)
--- NOTE | 2022-03-23 07:30 | NUR ---
EVENT ATTENDANT AM NOTES: PATIENT IN BED, AO X 1, CONFUSED, MUMBLES, ON 3L O2 NASAL CANULA O2 SAT 100%, RESPIRATION UNLABORED, NO DISTRESS, ST HR 102 ON MONITOR, NO SIGNS OF PAIN/GRIMACINGS. WITH NS AT 75 ML/HR RUNNING ON RT HAND 22G IV ACCESS, SITE CLEAR. PICC LINE PULLED OUT EARLY THIS MORNING PER TAX ATTORNEY. ORDER PLACE FOR MIDLINE INSERTION. ASSISTED ON CCHO DIET, CRUSH MEDS DIET. SEE NURSING FLOWSHEET FOR SKIN ISSUES. WILL PERFORM PRESCRIBED WOUND TREATMENT IN A WHILE. WITH BILAT SOFT WRIST RESTRAINT, RELEASED AND CHECKED PULSE AND CIRCULATION, THEN EVERY 2 HOURS. HOB UPRIGHT AT ALL TIME, PATIENT KEPT CLEAN AND DRY ALL NEEDS ANTICIPATED, WILL TURN AND REPOSITION Q 2 HOURS, WILL CONTINUE TO MONITOR.
[2022-03-23 08:00] VITALS: BP 125/90
[2022-03-23] MEDS: DAPTOMYCIN 500 MG in IV NS 0.9% 50 ML IV SCH (09:00)
--- NOTE | 2022-03-23 09:30 | NUR ---
RN NOTES DUE MEDS GIVEN
[2022-03-23] MEDS: DICYCLOMINE HCL 10 MG CAPSULE PO SCH ×2 (09:43→16:51)
[2022-03-23] MEDS: ASPIRIN EC 81 MG TABLET.DR PO SCH (09:43)
[2022-03-23] MEDS: FLUCONAZOLE (100 MG) 100 MG TABLET PO SCH (09:43)
[2022-03-23] MEDS: ARIPIPRAZOLE 2 MG TABLET PO SCH (09:43)
[2022-03-23] MEDS: FAMOTIDINE (20 MG) 20 MG TABLET PO SCH ×2 (09:43→20:59)
[2022-03-23] MEDS: GABAPENTIN 100 MG CAPSULE PO SCH ×2 (09:44→16:51)
[2022-03-23] MEDS: MECLIZINE HCL 12.5 MG TABLET PO SCH ×2 (09:44→16:51)
[2022-03-23] MEDS: MEMANTINE HCL 5 MG TABLET PO SCH ×2 (09:44→16:51)
[2022-03-23] MEDS: DONEPEZIL 5 MG TABLET PO SCH (09:44)
[2022-03-23] MEDS: ACETAMINOPHEN ES 500 MG TABLET PO SCH ×2 (09:46→16:51)
[2022-03-23] MEDS: DULOXETINE HCL 30 MG CAPSULE.DR PO SCH (09:49)
[2022-03-23] MEDS: ENOXAPARIN SODIUM 30 MG/0.3 ML DISP.SYRIN SQ SCH (09:50)
[2022-03-23] MEDS: POTASSIUM CHLORIDE 20 MEQ TAB.PRT.SR PO SCH ×2 (11:32→12:23)
[2022-03-23 12:00] VITALS: BP 101/67
[2022-03-23] MEDS: VANCOMYCIN HCL 0.75 GM in IV D5W 250 ML IV SCH ×2 (12:13→23:42)
[2022-03-23 16:00] VITALS: BP 128/67
[2022-03-23] MEDS ORDERED: K PHOS NEUTRAL 250 MG TABLET PO ONE (16:00)
--- NOTE | 2022-03-23 19:20 | NUR ---
HISTORIAN RESEARCH ASSISTANT CLOSING NOTES: PATIENT IN BED, RESTING , AO X 1, CONFUSED, MUMBLES, ON 3L O2 NASAL CANULA O2 SAT 100%, RESPIRATION UNLABORED, NO DISTRESS, ST HR 100s ON MONITOR, NO SIGNS OF PAIN/GRIMACINGS. WITH NS AT 75 ML/HR RUNNING ON ADRIANE MIDLINE. RT HAND G22 IV ACCESS, SITE CLEAR. ASSISTED ON CCHO DIET, CRUSH MEDS DIET. PERFORMED PRESCRIBED WOUND TREATMENT AND PM CARE. WITH BILAT SOFT WRIST RESTRAINT, RELEASED AND CHECKED PULSE AND CIRCULATION EVERY 2 HOURS. HOB UPRIGHT AT ALL TIME, BOWDEN CATH IN PLACE WITH 800 ML OUTPUT. PATIENT KEPT CLEAN AND DRY ALL NEEDS ANTICIPATED, ASSITED WITH TURNING AND REPOSITIONING Q 2 HOURS, ALL NEEDS MET AT THIS TIME. WILL ENDORSE TO NEXT SHIFT FOR DEN.
--- NOTE | 2022-03-23 19:20 | NUR ---
RN NOTE RECEIVED PATIENT IN BED RESTING ALERT ORIENTED X1 CONFUSED,MUMBLING,ON 3L OXYGEN VIA NASAL CANNULA O2:98% IV SITE IS ON RIGHT UPPER ARM MIDLINE AND RIGHT HAND INTACT PATENT ON NS 75CC/HR,BOWDEN CATHETER IN PLACE URINE DRAINING YELLOW AND CLEAR BY GRAVITY,SOFT BILATERAL WRIST RESTRAIN IN PLACE WILL CHECK EVERY 15MINS FOR SKIN BREAKDOWN AND CIRCULATION,BED IN LOW POSITION AND LOCKED HEAD OF THE BED ELEVATED CONTINUE TO MONITOR.
[2022-03-23 20:00] VITALS: BP 128/61
[2022-03-23] MEDS: METOPROLOL TARTRATE 50 MG TABLET PO SCH (21:47)
[2022-03-23] MEDS: ATORVASTATIN 10 MG TABLET PO SCH (21:47)
[2022-03-24] VITALS: BP 136/55
[2022-03-24] MEDS: IPRATROPIUM NEB FS 0.5 MG/2.5 ML AMPUL.NEB NEB SCH ×6 (03:08→23:13)
[2022-03-24] MEDS: PIPERACILLIN /TAZOBACTAM 3.375 G in IV D5W 100 ML IV SCH ×3 (03:34→19:28)
[2022-03-24 04:00] VITALS: BP 154/69
[2022-03-24] MEDS: IV NS 0.9% 1,000 ML IV PRN (04:58)
--- NOTE | 2022-03-24 06:38 | NUR ---
RN NOTE PATIENT REMAINS ALERT ORIENTED X1 CONFUSED NO SOB NOT ACUTE DISTRESS NOTED ALL DUE MEDS GIVEN MD ORDERED KEPT CLEAN AND DRY ALL THE TIME,TURNED AND REPOSITIONED EVERY 2 HOURS ALL NEEDS MET.
[2022-03-24] MEDS: INSULIN REGULAR, HUMAN 100 UNIT/ML 3 ML VIAL SQ SCH ×4 (07:30→21:18)
--- NOTE | 2022-03-24 07:35 | NUR ---
ESCALATOR ATTENDANT OPENING NOTES: PATIENT IN BED, AO X 1, CONFUSED, MUMBLES, ON 3L O2 NASAL CANULA, RESPIRATION UNLABORED, NO DISTRESS, ON MONITOR, NO SIGNS OF PAIN/GRIMACINGS. WITH NS AT 75 ML/HR RUNNING ON RT MIDLINE ACCESS, SITE CLEAR. DIET-ASSISTED ON CCHO DIET, CRUSH MEDS DIET. WITH BILAT SOFT WRIST RESTRAINT, RELEASED AND CHECKED PULSE AND CIRCULATION. PATIENT ON RESTRAINTS DUE TO PREVIOUSLY REMOVING IV MIDLINE. SAFETY MEASURES IN PLACE, BED LOCKED IN THE LOWEST POSITION, 2 SIDE RAILS UP, BED ALARM ACTIVATED AND CALL LIGHT WITHIN REACH.
[2022-03-24] MEDS: BLOOD SUGAR DIAGNOSTIC 1 EACH STRIP IN SCH ×4 (07:49→21:18)
[2022-03-24 08:00] VITALS: BP 123/59
[2022-03-24] MEDS: ACETAMINOPHEN ES 500 MG TABLET PO SCH ×2 (09:00→16:22)
[2022-03-24] MEDS: DONEPEZIL 5 MG TABLET PO SCH (09:03)
[2022-03-24] MEDS: ASPIRIN EC 81 MG TABLET.DR PO SCH (09:03)
[2022-03-24] MEDS: ARIPIPRAZOLE 2 MG TABLET PO SCH (09:03)
[2022-03-24] MEDS: MECLIZINE HCL 12.5 MG TABLET PO SCH ×2 (09:03→16:22)
[2022-03-24] MEDS: MEMANTINE HCL 5 MG TABLET PO SCH ×2 (09:04→16:22)
[2022-03-24] MEDS: DICYCLOMINE HCL 10 MG CAPSULE PO SCH ×2 (09:04→16:24)
[2022-03-24] MEDS: DULOXETINE HCL 30 MG CAPSULE.DR PO SCH (09:04)
[2022-03-24] MEDS: FAMOTIDINE (20 MG) 20 MG TABLET PO SCH ×2 (09:04→22:00)
[2022-03-24] MEDS: GABAPENTIN 100 MG CAPSULE PO SCH ×2 (09:04→16:22)
[2022-03-24] MEDS: FLUCONAZOLE (100 MG) 100 MG TABLET PO SCH (09:04)
[2022-03-24] MEDS: ENOXAPARIN SODIUM 30 MG/0.3 ML DISP.SYRIN SQ SCH (09:05)
[2022-03-24 10:40] LABS: BASOPHILS % (AUTO) 0.4 % (0.0-2.0); EOSINOPHILS % (AUTO) 6.2 % (0.0-6.0); HEMATOCRIT 26 % (33-45); HEMOGLOBIN 8.5 g/dL (11.5-14.8); LYMPHOCYTES # (AUTO) 1.2 K/uL (0.8-4.8); LYMPHOCYTES % (AUTO) 14.5 % (20.0-44.0); MEAN CORPUSCULAR HGB CONC 33 g/dl (31.0-36.0); MEAN CORPUSCULAR VOLUME 89 fL (82-100); MONOCYTES # (AUTO) 0.9 K/uL (0.1-1.30); MONOCYTES % (AUTO) 11.2 % (2.0-12.0); NEUTROPHILS # (AUTO) 5.7 K/uL (1.8-8.9); NEUTROPHILS % (AUTO) 67.7 % (43.0-81.0); PLATELET COUNT (AUTO) 294 K/uL (150-450); RED BLOOD CELL COUNT(AUTO) 2.94 MIL/uL (4.0-5.2); WHITE BLOOD COUNT (AUTO) 8.4 K/uL (4.3-11.0)
[2022-03-24 12:00] VITALS: BP 123/62
[2022-03-24 12:21] LABS: CALCIUM, SERUM 8.1 mg/dL (8.5-10.1); CREATININE 0.7 mg/dL (0.6-1.3); MAGNESIUM 1.8 mg/dL (1.8-2.4); PHOSPHORUS 1.6 mg/dL (2.5-4.9); POTASSIUM 3.3 mmol/L (3.5-5.1)
[2022-03-24] MEDS: VANCOMYCIN HCL 0.75 GM in IV D5W 250 ML IV SCH (12:28)
[2022-03-24] MEDS ORDERED: LORAZEPAM INJ 2 MG/ML VIAL IV PRN (15:00)
[2022-03-24 16:00] VITALS: BP 136/75
[2022-03-24] MEDS ORDERED: K PHOS NEUTRAL 250 MG TABLET PO ONE (16:00)
[2022-03-24] MEDS ORDERED: POTASSIUM CHLORIDE 20 MEQ TAB.PRT.SR PO SCH (18:00)
--- NOTE | 2022-03-24 18:43 | NUR ---
ORACLE SOA DEVELOPER CLOSING NOTES: PATIENT IN BED, RESTING , AO X 1, CONFUSED, MUMBLES, ON 2L O2 NASAL CANULA, RESPIRATION UNLABORED, NO DISTRESS, ST HR 100s ON MONITOR, NO SIGNS OF PAIN/GRIMACINGS.. RT HAND G22 IV ACCESS, SITE CLEAR. ASSISTED ON CCHO DIET, CRUSH MEDS DIET. PERFORMED PRESCRIBED WOUND TREATMENT AND PM CARE. WITH BILAT SOFT WRIST RESTRAINT, RELEASED AND CHECKED PULSE AND CIRCULATION EVERY 2 HOURS. HOB UPRIGHT AT ALL TIME, BOWDEN CATH IN PLACE WITH 450 ML OUTPUT. PATIENT KEPT CLEAN AND DRY ALL NEEDS ANTICIPATED, ASSITED WITH TURNING AND REPOSITIONING Q 2 HOURS, ALL NEEDS MET AT THIS TIME. WILL ENDORSE TO NEXT SHIFT FOR DEN.
--- NOTE | 2022-03-24 19:16 | NUR ---
STERILE PROCESSING TECHNOLOGIST OPENING NOTES: PATIENT IN BED, RESTING , AO X 1, CONFUSED, MUMBLES, ON 2L O2 NASAL CANULA, RESPIRATION UNLABORED, NO DISTRESS, ST HR 100s ON MONITOR, NO SIGNS OF PAIN/GRIMACING.. RT HAND G22 IV ACCESS, SITE CLEAR. ASSISTED ON CCHO DIET, CRUSH MEDS DIET. WITH BILAT SOFT WRIST RESTRAINT, RELEASED AND CHECKED PULSE AND CIRCULATION EVERY 2 HOURS. ALL NEEDS MET AND ANTICIPATED.HOB UPRIGHT AT ALL TIME, BOWDEN CATH IN PLACE WITH 450 ML OUTPUT DURING DAY SHIFT. PATIENT KEPT CLEAN AND DRY ASSISTED WITH TURNING AND REPOSITIONING Q 2 HOURS AND NEEDED, ALL NEEDS MET AT THIS TIME. WILL CONTINUE TO MONITOR
[2022-03-24 20:00] VITALS: BP 113/75
--- NOTE | 2022-03-24 20:58 | NUR ---
ANIMAL CAREGIVER NOTES PT FAMILY VISITED [facility] PT FAMILY REQUESTING PTS STITCHES ON HER RIGHT FOOT BE TAKEN OUT WILL ENDORSE TO DAY SHIFT TO FOLLOW UP WITH HUMANITIES DEPARTMENT CHAIR REGARDING REMOVAL OF STITCHES. PT COMFORTABLE AT THIS TIME SLEEPING ALL NEEDS MET. WILL CONTINUE TO MONITOR. Addendum: 03/24/22 at 2101 by HUY PARADA RN CIRCULATION CHECKED RESTRAINTS REMOVED PASSIVE EXERCISES PERFORMED AND RESTRAINTS BUT ON AGAIN
[2022-03-24] MEDS: ATORVASTATIN 10 MG TABLET PO SCH (21:59)
[2022-03-24] MEDS: METOPROLOL TARTRATE 50 MG TABLET PO SCH (22:00)
[2022-03-25] MEDS: VANCOMYCIN HCL 0.75 GM in IV D5W 250 ML IV SCH ×2 (00:06→16:44)
[2022-03-25 00:43] VITALS: BP 140/80
[2022-03-25] MEDS: IPRATROPIUM NEB FS 0.5 MG/2.5 ML AMPUL.NEB NEB SCH ×6 (03:24→23:53)
[2022-03-25] MEDS: PIPERACILLIN /TAZOBACTAM 3.375 G in IV D5W 100 ML IV SCH ×3 (03:29→20:08)
[2022-03-25 04:30] VITALS: BP 138/68
[2022-03-25 06:14] LABS: CALCIUM, SERUM 8.1 mg/dL (8.5-10.1); CARBON DIOXIDE 28 mmol/L (21-32); CHLORIDE 107 mmol/L (98-107); CREATININE 0.7 mg/dL (0.6-1.3); GLUCOSE 100 mg/dL (74-106); PHOSPHORUS 2.3 mg/dL (2.5-4.9); SODIUM SERUM 141 mmol/L (136-145); UREA NITROGEN, BLOOD 8 mg/dL (7-18)
--- NOTE | 2022-03-25 07:23 | NUR ---
OXYHYDROGEN WELDER CLOSING NOTES: PATIENT IN BED, RESTING , AO X 1, CONFUSED, MUMBLES, ON 2L O2 NASAL CANULA, RESPIRATION UNLABORED, NO DISTRESS, ST HR 100s ON MONITOR, NO SIGNS OF PAIN/GRIMACING.. RT HAND G22 IV ACCESS, SITE CLEAR. ASSISTED ON CCHO DIET, CRUSH MEDS DIET. WITH BILAT SOFT WRIST RESTRAINT, RELEASED AND CHECKED PULSE AND CIRCULATION EVERY 2 HOURS. ALL NEEDS MET AND ANTICIPATED.HOB UPRIGHT AT ALL TIME, BOWDEN CATH IN PLACE WITH 450 ML OUTPUT DURING DAY SHIFT. PATIENT KEPT CLEAN AND DRY ASSISTED WITH TURNING AND REPOSITIONING Q 2 HOURS AND NEEDED, ALL NEEDS MET AT THIS TIME. WILL ENDORSE CARE.
[2022-03-25] MEDS: INSULIN REGULAR, HUMAN 100 UNIT/ML 3 ML VIAL SQ SCH ×4 (07:30→21:27)
--- NOTE | 2022-03-25 07:46 | NUR ---
RN OPENING NOTES Patient seen comfortably lying in bed, no apparent distress noted, respirations even and unlabored, no shortness of breath, no grimacing. Call light left within reach, safety precautions in place, brakes locked, side rails up X 2, will monitor closely for any changes.
[2022-03-25 08:00] VITALS: BP 122/67
[2022-03-25] MEDS: FLUCONAZOLE (100 MG) 100 MG TABLET PO SCH (08:31)
[2022-03-25] MEDS: ASPIRIN EC 81 MG TABLET.DR PO SCH (08:31)
[2022-03-25] MEDS: DONEPEZIL 5 MG TABLET PO SCH (08:31)
[2022-03-25] MEDS: ARIPIPRAZOLE 2 MG TABLET PO SCH (08:31)
[2022-03-25] MEDS: ACETAMINOPHEN ES 500 MG TABLET PO SCH ×2 (08:32→16:44)
[2022-03-25] MEDS: GABAPENTIN 100 MG CAPSULE PO SCH ×2 (08:32→16:45)
[2022-03-25] MEDS: FAMOTIDINE (20 MG) 20 MG TABLET PO SCH ×2 (08:32→20:08)
[2022-03-25] MEDS: DULOXETINE HCL 30 MG CAPSULE.DR PO SCH (08:32)
[2022-03-25] MEDS: MEMANTINE HCL 5 MG TABLET PO SCH ×2 (08:32→16:44)
[2022-03-25] MEDS: MECLIZINE HCL 12.5 MG TABLET PO SCH ×2 (08:32→16:44)
[2022-03-25] MEDS: ENOXAPARIN SODIUM 30 MG/0.3 ML DISP.SYRIN SQ SCH (08:36)
[2022-03-25] MEDS: BLOOD SUGAR DIAGNOSTIC 1 EACH STRIP IN SCH ×4 (08:38→21:22)
[2022-03-25] MEDS ORDERED: K PHOS NEUTRAL 250 MG TABLET PO ONE (12:00)
[2022-03-25] MEDS: POTASSIUM CHLORIDE 20 MEQ TAB.PRT.SR PO SCH ×3 (12:42→14:12)
[2022-03-25] MEDS: DICYCLOMINE HCL 10 MG CAPSULE PO SCH ×2 (13:19→16:45)
[2022-03-25 16:00] VITALS: BP 127/74
--- NOTE | 2022-03-25 18:31 | NUR ---
RN CLOSING NOTES Patient lying in bed, no apparent distress noted, no dizziness, no palpitations, respirations even and unlabored, no shortness of breath, remained afebrile. All due medications given per MD order, tolerating well. Patient is on IV ATB, tolerating well, midline on her right upper arm and peripheral IV line on right hand, intact, patent, flushing well, no s/s of infiltration at site, IV sites remained patent and flushing well, no swelling, no redness at this time, no s/s of infiltration. Dowell catheter draining clear yellowish urine free from any sediments, no hematuria, and no unusual odor noted in urine, no grimacing when bladder palpated, bladder non distended during shift. No s/s of hypo or hyperglycemia during shift, no change in level of consciousness, no tremors. Call light left within reach, all needs attended, kept clean and dry, safety precautions in place, brakes locked, side rails up X 2, will endorse to next shift for continuity of care.
--- NOTE | 2022-03-25 19:30 | NUR ---
RN OPENING NOTES RECEIVED PT IN BED, AO X 1, CONFUSED, CONSTANTLY MUMBLING IN MARSHALLESE/ALGERIAN LANGUAGE. ON 3L OF O2 VIA NC, SATING AT 96%. RESPIRATORY EVEN AND UNLABORED, NO S/SX OF ACUTE DISTRESS NOTED AT THIS TIME, SR WITH HR OF 91 ON TELE MONITOR, NO SIGNS OF PAIN OR GRIMACING NOTED. IV ACCESS AT ADRIANE MIDLINE AND RIGHT HAND, #20G NOTED. BOTH INTACT AND PATENT. NO S/SX OF INFILTRATION NOTED. PT HAS SOFT BLE WRIST RESTRAINTS, RELEASED AND CHECKED PULSE AND CIRCULATION, THEN EVERY 2 HOURS. NO COMPROMISED CIRCULATION NOTED. ON CCHO/CRUSH MEDS DIET. KEPT HOB ELEVATED. PT KEPT CLEAN AND DRY. ALL NEEDS ANTICIPATED. WILL TURN AND REPOSITION Q 2 HOURS. ALL SAFETY MEASURES IN PLACE. BED LOCKED IN LOWEST POSITION. BED ALARM ON. CALL LIGHT WITHIN REACH. WILL CONTINUE TO MONITOR.
[2022-03-25 21:00] VITALS: BP 128/67
[2022-03-25] MEDS ORDERED: ALPRAZOLAM 0.5 MG TABLET PO PRN (21:00)
[2022-03-25] MEDS: ATORVASTATIN 10 MG TABLET PO SCH (21:08)
[2022-03-25] MEDS: METOPROLOL TARTRATE 50 MG TABLET PO SCH (21:08)
[2022-03-26] MEDS: VANCOMYCIN HCL 0.75 GM in IV D5W 250 ML IV SCH ×2 (00:01→11:45)
[2022-03-26] MEDS: PIPERACILLIN /TAZOBACTAM 3.375 G in IV D5W 100 ML IV SCH ×3 (03:23→20:04)
[2022-03-26] MEDS: IPRATROPIUM NEB FS 0.5 MG/2.5 ML AMPUL.NEB NEB SCH ×5 (03:30→20:17)
[2022-03-26 05:00] VITALS: BP 131/76
--- NOTE | 2022-03-26 06:59 | NUR ---
RN CLOSING NOTES No significant change throughout the shift. Patient remained in bed with BLE soft wrist restraints. Pt is confused,trying to get up from bed. No compromised circulation noted. On O2 via NC, 2LPM. Tolerating well, sating at 100%. No apparent distress noted, no dizziness, no palpitations, respirations even and unlabored, no shortness of breath, remained afebrile. All due medications given per MD order, tolerating well. IV access noted on her right upper arm midline and right hand, #20g. Both intact, patent, flushing well, no s/s of infiltration at site. Dowell catheter draining clear yellowish urine free from any sediments, no hematuria, and no unusual odor noted in urine, no grimacing when bladder palpated, bladder non distended during shift. No s/s of hypo or hyperglycemia during shift, no change in level of consciousness, no tremors. All safety measures implemented. Call light left within reach, all needs attended, kept clean and dry, brakes locked, side rails up X 2, will endorse to next shift for continuity of care.
--- NOTE | 2022-03-26 07:26 | NUR ---
RN OPENING NOTES RECEIVED PT IN BED, AO X 1, CONFUSED. ON 3L OF O2 VIA NC, SATING AT 96%. RESPIRATORY EVEN AND UNLABORED, NO S/SX OF ACUTE DISTRESS NOTED AT THIS TIME, ON TELE MONITOR, NO SIGNS OF PAIN OR GRIMACING NOTED. IV ACCESS AT ADRIANE MIDLINE AND RIGHT HAND, #20G NOTED. BOTH INTACT AND PATENT. NO S/SX OF INFILTRATION NOTED. PT HAS SOFT BLE WRIST RESTRAINTS, RELEASED AND CHECKED PULSE AND CIRCULATION. NO COMPROMISED CIRCULATION NOTED. ON CCHO/CRUSH MEDS DIET. ALL SAFETY MEASURES IN PLACE. BED LOCKED IN LOWEST POSITION. BED ALARM ON. CALL LIGHT WITHIN REACH.
[2022-03-26] MEDS: INSULIN REGULAR, HUMAN 100 UNIT/ML 3 ML VIAL SQ SCH ×4 (07:30→21:32)
[2022-03-26 07:32] LABS: CALCIUM, SERUM 8.7 mg/dL (8.5-10.1); CARBON DIOXIDE 26 mmol/L (21-32); CHLORIDE 109 mmol/L (98-107); CREATININE 0.8 mg/dL (0.6-1.3); GLUCOSE 105 mg/dL (74-106); PHOSPHORUS 2.2 mg/dL (2.5-4.9); POTASSIUM 3.4 mmol/L (3.5-5.1); SODIUM SERUM 143 mmol/L (136-145); UREA NITROGEN, BLOOD 6 mg/dL (7-18)
[2022-03-26] MEDS: BLOOD SUGAR DIAGNOSTIC 1 EACH STRIP IN SCH ×4 (07:54→21:30)
[2022-03-26 08:00] VITALS: BP 159/78
[2022-03-26] MEDS: ENOXAPARIN SODIUM 30 MG/0.3 ML DISP.SYRIN SQ SCH (08:25)
[2022-03-26] MEDS: ARIPIPRAZOLE 2 MG TABLET PO SCH (08:26)
[2022-03-26] MEDS: GABAPENTIN 100 MG CAPSULE PO SCH ×2 (08:26→17:32)
[2022-03-26] MEDS: FAMOTIDINE (20 MG) 20 MG TABLET PO SCH ×2 (08:26→21:29)
[2022-03-26] MEDS: MEMANTINE HCL 5 MG TABLET PO SCH ×2 (08:26→17:32)
[2022-03-26] MEDS: FLUCONAZOLE (100 MG) 100 MG TABLET PO SCH (08:26)
[2022-03-26] MEDS: DONEPEZIL 5 MG TABLET PO SCH (08:26)
[2022-03-26] MEDS: ASPIRIN EC 81 MG TABLET.DR PO SCH (08:26)
[2022-03-26] MEDS: ACETAMINOPHEN ES 500 MG TABLET PO SCH ×2 (08:26→17:32)
[2022-03-26] MEDS: DICYCLOMINE HCL 10 MG CAPSULE PO SCH ×2 (08:26→17:32)
[2022-03-26] MEDS: DULOXETINE HCL 30 MG CAPSULE.DR PO SCH (08:26)
[2022-03-26] MEDS: MECLIZINE HCL 12.5 MG TABLET PO SCH ×2 (08:26→17:32)
--- NOTE | 2022-03-26 10:02 | NUR ---
RN NOTE RECEIVED CALL FROM DAUGHTER IN LAW REGARDING PATIENTS SUTURES ON RIGHT FOOT. PER FAMILY PATIENT HAS HAD SUTURES IN O8MGICV AND IS REQUESTING WE REMOVE THEM. INFORMED DR MOSES PER PROVIDER OKAY TO REMOVE.
[2022-03-26] MEDS ORDERED: POTASSIUM CHLORIDE 20 MEQ TAB.PRT.SR PO SCH (10:30)
[2022-03-26] MEDS ORDERED: K PHOS NEUTRAL 250 MG TABLET PO ONE (12:00)
[2022-03-26 16:00] VITALS: BP 148/77
--- NOTE | 2022-03-26 17:37 | NUR ---
RECEIVED PATIENT ON 3LNC SATURATIONS AT 95-97%. Q4 HHN ATROVENT TX TOLERATING WELL WITH NO ADVERSE REACTION NOTED. WILL CONTINUE TO MONITOR.
--- NOTE | 2022-03-26 18:42 | NUR ---
RN CLOSING NOTES PT IN BED, AO X 1, CONFUSED. ON 3L OF O2 VIA NC, SATING AT 96%. RESPIRATORY EVEN AND UNLABORED, NO S/SX OF ACUTE DISTRESS NOTED AT THIS TIME, ON TELE MONITOR, NO SIGNS OF PAIN OR GRIMACING NOTED. IV ACCESS AT ADRIANE MIDLINE INTACT AND PATENT. NO S/SX OF INFILTRATION NOTED. PT HAS SOFT BLE WRIST RESTRAINTS, RELEASED AND CHECKED PULSE AND CIRCULATION. NO COMPROMISED CIRCULATION NOTED. ON CCHO/CRUSH MEDS DIET. ALL SAFETY MEASURES IN PLACE. BED LOCKED IN LOWEST POSITION. BED ALARM ON. CALL LIGHT WITHIN REACH. WILL ENDORSE TO NIGHT NURSE FOR DEN.
--- NOTE | 2022-03-26 19:39 | NUR ---
RN NOTE PATIENT IN BED ALERT AND ORIENTED X2. ON O2 2L VIA NASAL CANNULA, NO S/S OF RESPIRATORY DISTRESS. COMPLAINED OF MILD BODY ACHES, TEMP 97.7. KEPT PATIENT COMFORTABLE. BOWDEN CATH NOTED, IN PLACE AND DRAINING VIA GRAVITY. BILATERAL SOFT WRIST RESTRAINTS ON, CIRCULATION AND SKIN CHECKED. NO S/S OF SKIN BREAKDOWN. IV ACCESS ON ADRIANE MIDLINE, PATENT AND INTACT. BED LOCKED AND IN LOWEST POSITION. CALL LIGHT WITHIN REACH. SAFETY MEASURES MAINTAINED. ALL NEEDS ANTICIPATED.
[2022-03-26 20:00] VITALS: BP 133/67
[2022-03-26] MEDS: ATORVASTATIN 10 MG TABLET PO SCH (21:29)
[2022-03-26] MEDS: METOPROLOL TARTRATE 50 MG TABLET PO SCH (21:29)
[2022-03-27] MEDS: VANCOMYCIN HCL 0.75 GM in IV D5W 250 ML IV SCH ×2 (00:07→12:28)
[2022-03-27] MEDS: IPRATROPIUM NEB FS 0.5 MG/2.5 ML AMPUL.NEB NEB SCH ×7 (00:26→23:36)
[2022-03-27 04:00] VITALS: BP 150/73
[2022-03-27] MEDS: PIPERACILLIN /TAZOBACTAM 3.375 G in IV D5W 100 ML IV SCH ×3 (04:25→20:45)
--- NOTE | 2022-03-27 07:01 | NUR ---
RN NOTE PATIENT IN RESTING. ON O2 -3L VIA NASAL CANNULA, NO SOB NOTED. BOWDEN CATH NOTED, IN PLACE AND DRAINING VIA GRAVITY. BILATERAL SOFT WRIST RESTRAINTS ON, CIRCULATION AND SKIN CHECKED. NO S/S OF SKIN BREAKDOWN. IV ACCESS ON ADRIANE MIDLINE, PATENT AND INTACT. TURNED AND REPOSITIONED. DUE MEDS GIVEN ORDERED. BED LOCKED AND IN LOWEST POSITION. CALL LIGHT WITHIN REACH. SAFETY MEASURES MAINTAINED. WILL ENDORSE TO AM SHIFT.
[2022-03-27] MEDS: INSULIN REGULAR, HUMAN 100 UNIT/ML 3 ML VIAL SQ SCH ×4 (07:30→21:30)
[2022-03-27 07:47] LABS: CALCIUM, SERUM 8.8 mg/dL (8.5-10.1); CREATININE 0.7 mg/dL (0.6-1.3); PHOSPHORUS 3.2 mg/dL (2.5-4.9); POTASSIUM 3.4 mmol/L (3.5-5.1)
[2022-03-27] MEDS: BLOOD SUGAR DIAGNOSTIC 1 EACH STRIP IN SCH ×4 (07:55→21:31)
--- NOTE | 2022-03-27 08:58 | NUR ---
WOUND CARE CONSULT (LATE ENTRY); PT WAS SEEN ON 03/21/22 AT 0815 AND NOTED TO HAVE RT LATERAL FOOT SURGICAL SITE, PRESENT ON ADMISSION. DR ARAGON WAS CALLED FOR DPM CONSULT.
[2022-03-27] MEDS ORDERED: POTASSIUM CHLORIDE 20 MEQ TAB.PRT.SR PO SCH (10:00)
[2022-03-27] MEDS: GABAPENTIN 100 MG CAPSULE PO SCH ×2 (10:16→17:37)
[2022-03-27] MEDS: MECLIZINE HCL 12.5 MG TABLET PO SCH ×2 (10:16→17:37)
[2022-03-27] MEDS: DULOXETINE HCL 30 MG CAPSULE.DR PO SCH (10:16)
[2022-03-27] MEDS: MEMANTINE HCL 5 MG TABLET PO SCH ×2 (10:16→17:37)
[2022-03-27] MEDS: DONEPEZIL 5 MG TABLET PO SCH (10:17)
[2022-03-27] MEDS: ARIPIPRAZOLE 2 MG TABLET PO SCH (10:17)
[2022-03-27] MEDS: FAMOTIDINE (20 MG) 20 MG TABLET PO SCH ×2 (10:17→21:16)
[2022-03-27] MEDS: ASPIRIN EC 81 MG TABLET.DR PO SCH (10:17)
[2022-03-27] MEDS: DICYCLOMINE HCL 10 MG CAPSULE PO SCH ×2 (10:22→17:37)
[2022-03-27] MEDS: ACETAMINOPHEN ES 500 MG TABLET PO SCH ×2 (10:22→17:37)
[2022-03-27] MEDS: ENOXAPARIN SODIUM 30 MG/0.3 ML DISP.SYRIN SQ SCH (10:24)
[2022-03-27 12:00] VITALS: BP 150/73
[2022-03-27] MEDS: GLUCERNA SHAKE 237 ML CAN PO SCH ×2 (14:04→17:37)
--- NOTE | 2022-03-27 18:39 | NUR ---
RN NOTE PATIENT RESTING IN BED. AWAKE ALERT AND RESPONSIVE. ON O2 @ 4L VIA NASAL CANNULA, NO SOB NOTED. BOWDEN CATH IN PLACE AND DRAINING WELL. BILATERAL SOFT WRIST RESTRAINTS ON, NO CIRCULATION AND SKIN COMPLICATIONS NOTED. IV ACCESS ON ADRIANE MIDLINE, PATENT AND INTACT. DUE MEDS GIVEN ORDERED. SAFETY MEASURES FOLLOWED. WILL ENDORSE TO NEXT SHIFT. ASPIRATION PREC FOLLOWED.
[2022-03-27 20:00] VITALS: BP 133/67
--- NOTE | 2022-03-27 20:00 | NUR ---
RN OPENING NOTES RECEIVED PT IN BED, AO X 1, CONFUSED. ON 4L OF O2 VIA NC, SATING AT 96%. RESPIRATORY EVEN AND UNLABORED, NO S/SX OF ACUTE DISTRESS NOTED AT THIS TIME, ON MS STATUS NO SIGNS OF PAIN OR GRIMACING NOTED. IV ACCESS AT ADRIANE MIDLINE AND RIGHT HAND, #20G NOTED. BOTH INTACT AND PATENT. NO S/SX OF INFILTRATION NOTED. PT HAS SOFT BLE WRIST RESTRAINTS, RELEASED AND CHECKED PULSE AND CIRCULATION. NO COMPROMISED CIRCULATION NOTED. ON CCHO/CRUSH MEDS DIET. ALL SAFETY MEASURES IN PLACE. BED LOCKED IN LOWEST POSITION. BED ALARM ON. CALL LIGHT WITHIN REACH. WILL CONTINUE TO MONITOR PTS.
[2022-03-27] MEDS: ATORVASTATIN 10 MG TABLET PO SCH (21:16)
[2022-03-27] MEDS: METOPROLOL TARTRATE 50 MG TABLET PO SCH (21:17)
--- NOTE | 2022-03-27 21:33 | NUR ---
ms rn notes Blood sugar for 10pm is 93mg/dl no insulin coverage given per sliding scale will check blood sugar again in am
[2022-03-28] VITALS: BP 123/67
[2022-03-28] MEDS: IPRATROPIUM NEB FS 0.5 MG/2.5 ML AMPUL.NEB NEB SCH ×5 (03:33→19:42)
[2022-03-28] MEDS: PIPERACILLIN /TAZOBACTAM 3.375 G in IV D5W 100 ML IV SCH ×2 (03:58→13:21)
[2022-03-28 04:00] VITALS: BP 151/71
--- NOTE | 2022-03-28 06:59 | NUR ---
SHOP AND ALTERATION TAILOR NOTES PTS IN BED AWAKE NO SOB NO DISTRESS NOTED NO C/O PAIN ALL DUE MEDS GIVEN ORDERED.REMAINS ON BILATERAL SOFT WRIST RESTRAINT TO PREVENT FROM PULLING INVASIVE TUBING , ALL NEEDS ATTENDED TOO , CALL LIGHT WITH IN REACH WILL ENDORSE TO RN DAY SHIFT FOR CONTINUITY OF CARE.
[2022-03-28] MEDS: INSULIN REGULAR, HUMAN 100 UNIT/ML 3 ML VIAL SQ SCH ×3 (07:30→17:02)
[2022-03-28 07:37] LABS: BASOPHILS % (AUTO) 0.5 % (0.0-2.0); EOSINOPHILS % (AUTO) 7.4 % (0.0-6.0); HEMATOCRIT 28 % (33-45); HEMOGLOBIN 9.2 g/dL (11.5-14.8); LYMPHOCYTES # (AUTO) 1.4 K/uL (0.8-4.8); LYMPHOCYTES % (AUTO) 16.6 % (20.0-44.0); MEAN CORPUSCULAR HGB CONC 33 g/dl (31.0-36.0); MEAN CORPUSCULAR VOLUME 88 fL (82-100); MONOCYTES # (AUTO) 0.6 K/uL (0.1-1.30); MONOCYTES % (AUTO) 7.3 % (2.0-12.0); NEUTROPHILS # (AUTO) 5.6 K/uL (1.8-8.9); NEUTROPHILS % (AUTO) 68.2 % (43.0-81.0); PLATELET COUNT (AUTO) 518 K/uL (150-450); RED BLOOD CELL COUNT(AUTO) 3.15 MIL/uL (4.0-5.2); WHITE BLOOD COUNT (AUTO) 8.3 K/uL (4.3-11.0)
--- NOTE | 2022-03-28 07:57 | NUR ---
RN OPENING NOTE PATIENT RECEIVED IN BED, AO X 2, ABLE TO RESPONDS ALL STIMULI. IN NO ACUTE DISTRESS NOTED. RESPIRATORY EVEN AND UNLABORED ON OXYGEN AT 4Ls VIA NC. SKIN IS WARM TO TOUCH, KEEP CLEAN/DRY, INTACT IV SITE. KEPT ELEVATED HOB FOR ENSURE AIRWAY AND ASPIRATION PRECAUTION, ALSO LOWEST POSITION OF THE BED, S/R UP X 3, ALL SAFETY PRECAUTION APPLIED. CALL LIGHT WITHIN REACH, WILL CONTINUE TO MONITOR.
[2022-03-28 08:12] LABS: CALCIUM, SERUM 8.9 mg/dL (8.5-10.1); CREATININE 0.8 mg/dL (0.6-1.3); POTASSIUM 3.6 mmol/L (3.5-5.1)
[2022-03-28] MEDS ORDERED: LEVO500T90 PO (08:41)
[2022-03-28] MEDS ORDERED: LEVOFLOXACIN (250MG) 250 MG TABLET PO SCH (09:00)
[2022-03-28] MEDS: BLOOD SUGAR DIAGNOSTIC 1 EACH STRIP IN SCH ×3 (09:18→17:01)
[2022-03-28] MEDS: GLUCERNA SHAKE 237 ML CAN PO SCH ×2 (09:19→17:01)
[2022-03-28] MEDS: ASPIRIN EC 81 MG TABLET.DR PO SCH (09:25)
[2022-03-28] MEDS: DONEPEZIL 5 MG TABLET PO SCH (09:26)
[2022-03-28] MEDS: GABAPENTIN 100 MG CAPSULE PO SCH ×2 (09:26→17:01)
[2022-03-28] MEDS: MEMANTINE HCL 5 MG TABLET PO SCH ×2 (09:26→17:00)
[2022-03-28] MEDS: ACETAMINOPHEN ES 500 MG TABLET PO SCH ×2 (09:26→17:01)
[2022-03-28] MEDS: DULOXETINE HCL 30 MG CAPSULE.DR PO SCH (09:26)
[2022-03-28] MEDS: FAMOTIDINE (20 MG) 20 MG TABLET PO SCH (09:27)
[2022-03-28] MEDS: DICYCLOMINE HCL 10 MG CAPSULE PO SCH ×2 (09:27→17:04)
[2022-03-28] MEDS: MECLIZINE HCL 12.5 MG TABLET PO SCH ×2 (09:27→17:00)
[2022-03-28] MEDS: ARIPIPRAZOLE 2 MG TABLET PO SCH (09:27)
[2022-03-28] MEDS: ENOXAPARIN SODIUM 30 MG/0.3 ML DISP.SYRIN SQ SCH (09:28)
--- NOTE | 2022-03-28 09:34 | NUR ---
BS 85, WILL HOLD INSULIN
[2022-03-28 16:00] VITALS: BP 149/69
--- NOTE | 2022-03-28 17:02 | NUR ---
BS 80, WILL HOLD INSULIN.
--- NOTE | 2022-03-28 18:45 | NUR ---
PATIENT D/C TO HOME, GIVEN DISCHARGE INSTRUCTION TO SON INCLUDE NEW PO ABX, AND OXYGEN SUPPLY/CONTACT NUMBER. SON WAS ASKING CLEAN THE PATIENT BEFORE DISCHARGE, AND CLEANED HER AT THE END OF THE SIFT. WILL ENDORSE ENAMELER REGARDING ABOVE.
--- NOTE | 2022-03-28 19:20 | NUR ---
RN CLOSE NOTE PATIENT IN BED, IN NO ACUTE DISTRESS OBSERVED. RESPIRATION EVEN AND UNLABORED ON OXYGEN AT 4Ls. SKIN IS WARM TO TOUCH KEEP CLEAN//DRY, INTACT IV SITE. KEPT ELEVATED HOB FOR ENSURE AIRWAY AND ASPIRATION PRECAUTION. ALSO LOWEST POSITION OF THE BED FOR SAFETY. PATIENT D/C TO HOME AND GIVEN REPORT STAND UP FORKLIFT OPERATOR.
--- NOTE | 2022-03-28 19:30 | NUR ---
MS RN OPENING NOTES RECEIVED PATIENT LAYING AWAKE IN BED. A/O X2. PATIENT WITH REGULAR AND UNLABORED BREATHING ON 4LPM VIA NASAL CANULA TOLERATED WELL. NO SIGNS AND SYMPTOMS OF DISTRESS NOTED AT THIS TIME. NO COMPLAINS OF PAIN OR DISCOMFORT AT THIS TIME. SAFETY PRECAUTIONS ENFORCED WITH BED LOCKED AND AT LOWEST POSITION. CALL LIGHT WITHIN REACH AT ALL TIMES. WILL CONTINUE TO MONITOR PATIENT.
--- NOTE | 2022-03-28 20:30 | NUR ---
MS BATTERY TEST ENGINEER NOTES AMBULANCE ARRIVED TO TAKE PATIENT HOME. SON NOTIFIED. DISCHARGE INSTRUCTIONS PROVIDED. IV REMOVED CATHETER INTACT. PATIENT LEFT MEDICALLY STABLE.
== END 2022-03-29 00:22 | disposition home health service (06) | DRG 871 ==
LOC: ER 19:35 → ICU 22:34 → TELE1 03-20 15:37 → MEDSG1 03-25 10:07
PROVIDERS: ADMIT Legal Medicine; ATTEND Legal Medicine
PROC: 05H533Z Insertion of Infusion Device into Right Subclavian Vein, Percutaneous Approach (ICD-10-PCS; principal; 2022-03-23)
PROC: B546ZZA Ultrasonography of Right Subclavian Vein, Guidance (ICD-10-PCS; 2022-03-23)
DX: A41.9 Sepsis, unspecified organism (principal); J69.0 Pneumonitis due to inhalation of food and vomit; G92.8 Other toxic encephalopathy; J96.91 Respiratory failure, unspecified with hypoxia; N39.0 Urinary tract infection, site not specified; N17.9 Acute kidney failure, unspecified; J98.11 Atelectasis; I50.32 Chronic diastolic (congestive) heart failure; Z20.822 Contact with and (suspected) exposure to COVID-19; Z87.440 Personal history of urinary (tract) infections; E11.42 Type 2 diabetes mellitus with diabetic polyneuropathy; D64.9 Anemia, unspecified; E11.621 Type 2 diabetes mellitus with foot ulcer; E78.5 Hyperlipidemia, unspecified; F03.90 Unspecified dementia, unspecified severity, without behavioral disturbance, psychotic disturbance, mood disturbance, and anxiety; I11.0 Hypertensive heart disease with heart failure; L97.519 Non-pressure chronic ulcer of other part of right foot with unspecified severity; B96.1 Klebsiella pneumoniae [K. pneumoniae] as the cause of diseases classified elsewhere; F09 Unspecified mental disorder due to known physiological condition; Z79.84 Long term (current) use of oral hypoglycemic drugs
CPT/HCPCS: 31720; 36410; 36415; 36600; 71045-TC; 73630-TC; 80048-TC; 80076-TC; 80202-TC; 81001; 82803-TC; 82962-TC; 83605-TC; 83735-TC; 83880; 84100-TC; 84484-TC; 85025-TC; 85730-TC; 87040-TC; 87081-TC; 87086-TC; 87186-TC; 92526; 92611-TC; 94640-TC; 94760-TC; 94799-TC; A6253; C9803; G0378; J0878; J1650; J1815; J2060; J2543; J3370; J3475; J3490; J7030; J7050; J7060; J8597

== ENCOUNTER 2022-04-05 21:42 | Inpatient (IN) | payer MEDICARE, OTHER ==
[~2022-04-05] VITALS: Ht 157.5 cm; Wt 67.1 kg
[~2022-04-05 21:42] MED LIST changes: +PIPERACILLIN /TAZOBACTAM 2.25 G in IV D5W 50 ML IV SCH
[2022-04-05] MEDS ORDERED: PIPERACILLIN /TAZOBACTAM 3.375 G in IV D5W 50 ML IV ONE (22:00)
[2022-04-05] MEDS ORDERED: VANCOMYCIN 1 GM in IV D5W 250 ML IV ONE (22:00)
[2022-04-05] MEDS ORDERED: IV NS 0.9% 1,000 ML BAG IV ONE (22:00)
[2022-04-05] MEDS ORDERED: VANCOMYCIN 1 GM VIAL ONE (22:13)
[2022-04-05] MEDS ORDERED: PIPERACILLIN /TAZOBACTAM 3.375 G VIAL IV ONE (22:14)
[2022-04-05] MEDS ORDERED: NOREPINEPHRINE 4 MG/4 ML AMPUL IV ONE (22:15)
[2022-04-05 22:27] LABS: BASOPHILS # (AUTO) 0.2 K/uL (0.0-0.2); BASOPHILS % (AUTO) 1.5 % (0.0-2.0); HEMATOCRIT 28 % (33-45); HEMOGLOBIN 8.8 g/dL (11.5-14.8); LYMPHOCYTES % (AUTO) 18.5 % (20.0-44.0); MEAN CORPUSCULAR HGB CONC 32 g/dl (31.0-36.0); MEAN CORPUSCULAR VOLUME 90 fL (82-100); MONOCYTES # (AUTO) 0.8 K/uL (0.1-1.30); MONOCYTES % (AUTO) 7.9 % (2.0-12.0); NEUTROPHILS # (AUTO) 7.5 K/uL (1.8-8.9); NEUTROPHILS % (AUTO) 70.1 % (43.0-81.0); PLATELET COUNT (AUTO) 314 K/uL (150-450); RED BLOOD CELL COUNT(AUTO) 3.05 MIL/uL (4.0-5.2); WHITE BLOOD COUNT (AUTO) 10.7 K/uL (4.3-11.0)
[2022-04-05] MEDS ORDERED: NOREPINEPHRINE 8 MG in IV NS 0.9% 250 ML IV ONE (22:30)
[2022-04-05 22:35] LABS: BILIRUBIN,URINE NEGATIVE (NEGATIVE); COLOR,URINE YELLOW (YELLOW); LEUKOCYTE ESTERASE ,URINE TRACE (NEGATIVE); NITRITE, URINE NEGATIVE (NEGATIVE); PH,URINE 6.5 (5.0-8.0); PROTEIN,URINE TRACE mg/dl (NEGATIVE); UGLUCOSE NEGATIVE (NEGATIVE); UROBILINOGEN,URINE 0.2 EU/dL (0.2)
[2022-04-05 22:43] LABS: BACTERIA,URINE 1+ /HPF (None Seen); RBC,URINE 0-2 /HPF (0-2); SQUAMOUS EPITHELIAL CELL,UR Few /HPF (None Seen); WBC,URINE 51-80 /HPF (0-3)
[2022-04-05 22:49] LABS: CALCIUM, SERUM 8.9 mg/dL (8.5-10.1); CARBON DIOXIDE 28 mmol/L (21-32); CHLORIDE 110 mmol/L (98-107); CREATININE 2.3 mg/dL (0.6-1.3); GLUCOSE 139 mg/dL (74-106); SODIUM SERUM 144 mmol/L (136-145); UREA NITROGEN, BLOOD 36 mg/dL (7-18)
--- NOTE | 2022-04-05 22:51 | NUR ---
ICU 258
[2022-04-05 23:01] LABS: ALANINE AMINOTRANSFERASE 11 U/L (12-78); ALBUMIN 2.3 g/dL (3.4-5.0); ALKALINE PHOSPHATASE 52 U/L (46-116); ASPARTATE AMINOTRANSFERASE 9 U/L (15-37); BILIRUBIN,DIRECT 0.1 mg/dL (0.0-0.2); BILIRUBIN,TOTAL 0.2 mg/dL (0.2-1.0); TOTAL PROTEIN, SERUM 6.1 g/dL (6.4-8.2)
[2022-04-05] MEDS ORDERED: DEXTROSE 50%-WATER 50 ML DISP.SYRIN IV PRN (23:30)
[2022-04-05] MEDS ORDERED: MORPHINE SULFATE INJ 2 MG/ML DISP.SYRIN IV PRN (23:30)
[2022-04-05] MEDS ORDERED: ONDANSETRON HCL/PF 4 MG/2 ML VIAL IVP PRN (23:30)
[2022-04-05] MEDS ORDERED: INSULIN REGULAR, HUMAN 100 UNIT/ML 3 ML VIAL SQ PRN (23:30)
[2022-04-05] MEDS ORDERED: MAG HYDROX/AL HYDROX/SIMETH 30 ML UDC PO PRN (23:30)
[2022-04-05] MEDS ORDERED: MAGNESIUM HYDROXIDE 30 ML UDC PO PRN (23:30)
[2022-04-05] MEDS ORDERED: Z GUARD REMEDY 4 OZ OINT TP PRN (23:30)
--- NOTE | 2022-04-05 23:30 | NUR ---
REPORT GIVEN TO ROSA MARIA ELIAS
--- NOTE | 2022-04-05 23:39 | NUR ---
PT TRANSFERRED TO ICU PER ACLS PROTOCOL.
[2022-04-06] VITALS (97 sets, daily range): BP systolic 56–175; BP diastolic 33–143
[2022-04-06] MEDS: NOREPINEPHRINE 8 MG in IV NS 0.9% 242 ML IV PRN (00:01)
--- NOTE | 2022-04-06 00:59 | NUR ---
MED NOTE: RETIMED ZOSYN 2.25GM IVPB.
[2022-04-06] MEDS: IV NS 0.9% 1,000 ML IV PRN ×2 (01:14→17:41)
[2022-04-06] MEDS ORDERED: ZOSYN IVPB 2.25 G in IV D5W 50ml IV SCH (06:00)
[2022-04-06] MEDS ORDERED: PIPERACILLIN /TAZOBACTAM 2.25 G in IV D5W 50 ML IV SCH ×5 (06:00→13:00)
[2022-04-06] MEDS ORDERED: PIPERACILLIN /TAZOBACTAM 2.25 G VIAL IV ONE (06:09)
[2022-04-06] MEDS ORDERED: BLOOD SUGAR DIAGNOSTIC 1 EACH STRIP IN SCH (07:30)
[2022-04-06 09:08] LABS: BASOPHILS # (AUTO) 0.1 K/uL (0.0-0.2); BASOPHILS % (AUTO) 0.6 % (0.0-2.0); HEMATOCRIT 35 % (33-45); HEMOGLOBIN 9.9 g/dL (11.5-14.8); LYMPHOCYTES # (AUTO) 1.9 K/uL (0.8-4.8); LYMPHOCYTES % (AUTO) 18.2 % (20.0-44.0); MEAN CORPUSCULAR HGB CONC 29 g/dl (31.0-36.0); MEAN CORPUSCULAR VOLUME 101 fL (82-100); MONOCYTES % (AUTO) 9.7 % (2.0-12.0); NEUTROPHILS # (AUTO) 7.1 K/uL (1.8-8.9); NEUTROPHILS % (AUTO) 68.5 % (43.0-81.0); PLATELET COUNT (AUTO) 203 K/uL (150-450); RED BLOOD CELL COUNT(AUTO) 3.42 MIL/uL (4.0-5.2); WHITE BLOOD COUNT (AUTO) 10.4 K/uL (4.3-11.0)
[2022-04-06 09:37] LABS: CALCIUM, SERUM 8.9 mg/dL (8.5-10.1); CARBON DIOXIDE 21 mmol/L (21-32); CHLORIDE 109 mmol/L (98-107); CREATININE 1.9 mg/dL (0.6-1.3); GLUCOSE 90 mg/dL (74-106); MAGNESIUM 2.1 mg/dL (1.8-2.4); PHOSPHORUS 4.4 mg/dL (2.5-4.9); POTASSIUM 4.8 mmol/L (3.5-5.1); SODIUM SERUM 140 mmol/L (136-145); UREA NITROGEN, BLOOD 36 mg/dL (7-18)
[2022-04-06] MEDS: PANTOPRAZOLE 40 MG VIAL IV SCH (09:59)
[2022-04-06] MEDS: ZOSYN IVPB 2.25 G in IV D5W 50ml IV SCH ×2 (12:55→18:46)
[2022-04-06 15:03] LABS: THYROID STIMULATING HORMONE 0.556 uIU/mL (0.358-3.74)
[2022-04-06] MEDS: ALPRAZOLAM 0.25 MG TABLET PO PRN (15:27)
--- NOTE | 2022-04-06 19:30 | NUR ---
END OF SHIFT NOTE: PT WAS AGITATED MOST OF THE SHIFT. XANAX PRN ORDERED AND GIVEN TO PATIENT. PT CALMED DOWN WITH XANAX. PT ATE LUNCH BUT NOT DINNER. LEVOPHED GTT RESTARTED TODAY AT 1200, INFUSING PER MD ORDERS. 1 LARGE BM THIS SHIFT. PT CHECKED ON HOURLY AND PRN BY NURSING STAFF.
[2022-04-06] MEDS: ACETAMINOPHEN 325 MG TABLET PO PRN (20:45)
[2022-04-07] VITALS (37 sets, daily range): BP systolic 40–150; BP diastolic 29–97
[2022-04-07] MEDS: NOREPINEPHRINE 8 MG in IV NS 0.9% 242 ML IV PRN (00:31)
[2022-04-07 04:31] LABS: BASOPHILS % (AUTO) 0.7 % (0.0-2.0); HEMATOCRIT 28 % (33-45); HEMOGLOBIN 9.1 g/dL (11.5-14.8); LYMPHOCYTES # (AUTO) 1.5 K/uL (0.8-4.8); LYMPHOCYTES % (AUTO) 21.3 % (20.0-44.0); MEAN CORPUSCULAR HGB CONC 32 g/dl (31.0-36.0); MEAN CORPUSCULAR VOLUME 90 fL (82-100); MONOCYTES # (AUTO) 0.6 K/uL (0.1-1.30); MONOCYTES % (AUTO) 8.2 % (2.0-12.0); NEUTROPHILS # (AUTO) 4.5 K/uL (1.8-8.9); NEUTROPHILS % (AUTO) 65.8 % (43.0-81.0); PLATELET COUNT (AUTO) 233 K/uL (150-450); RED BLOOD CELL COUNT(AUTO) 3.15 MIL/uL (4.0-5.2); WHITE BLOOD COUNT (AUTO) 6.8 K/uL (4.3-11.0)
[2022-04-07 04:51] LABS: CALCIUM, SERUM 8.7 mg/dL (8.5-10.1); CARBON DIOXIDE 24 mmol/L (21-32); CHLORIDE 108 mmol/L (98-107); CREATININE 1.2 mg/dL (0.6-1.3); GLUCOSE 108 mg/dL (74-106); POTASSIUM 4.1 mmol/L (3.5-5.1); SODIUM SERUM 139 mmol/L (136-145); UREA NITROGEN, BLOOD 24 mg/dL (7-18)
[2022-04-07] MEDS: ZOSYN IVPB 2.25 G in IV D5W 50ml IV SCH ×5 (05:45→17:25)
--- NOTE | 2022-04-07 07:19 | NUR ---
WOUND CARE CONSULT: PT PRESENTS WITH SACRAL INTACT DEEP TISSUE INJURY AND RT FOOT DRY WOUND TO LAERAL FOOT AND DISCOLORATIONS, PRESENT ON ADMISSION. DR ARAGON TO BE CALLED THIS AM FOR DPM CONSULT REQUEST. RECOMMENDATIONS MADE FOR SKIN PROTECTION. DISCUSSED WITH NURSING STAFF. PT IS ON [facility] BED. IN AGREEMENT WITH PLAN OF CARE. Addendum: 04/07/22 at 0720 by JAZIEL ENGLE WNDNU Amended: Links added.
--- NOTE | 2022-04-07 07:30 | NUR ---
RN OPENING NOTE PT RECEIVED IN BED. PT IS A/OX1 CONFUSED THAI SPEAKING ONLY WITH BILATERAL SOFT WRIST RESTRAINTS. PT IS ON 2L O2 VIA NC SAT 98% TOLERATING WELL WITH NO SIGNS OF DISTRESS OR LABORED BREATHING. FC IS IN PLACE DRAINING URINE BY GRAVITY. IV ACCESS L UA ML AND L AC INFUSING WITH NS @75ML/HR. BED IS LOCKED IN LOWEST POSITION X 3 BED RAILS UP AND ALL HOSPITAL SAFETY PROTOCOLS ARE IN PLACE. WILL CONTINUE TO MONITOR THIS SHIFT.
[2022-04-07] MEDS: PANTOPRAZOLE 40 MG VIAL IV SCH (08:05)
[2022-04-07] MEDS: IV NS 0.9% 1,000 ML IV PRN (08:45)
[2022-04-07] MEDS ORDERED: VANCOMYCIN HCL 0.75 GM in IV D5W 250 ML IV SCH (10:00)
--- NOTE | 2022-04-07 12:15 | NUR ---
RN NOTE: TRANSFER PT IS STABLE AT THIS TIME AND TRANSFERRED TO #105. REPORT GIVEN TO JADA REHMAN.
--- NOTE | 2022-04-07 12:30 | NUR ---
patient received from icu to room 119-1 per bed skin w/d color good resp unlabored no sob noted .iv infusing well with no signs of redness or swelling noted harrison catheter in place with draining well to gravity . will continue to assess and evaluate side rails up and made patient comfortable
--- NOTE | 2022-04-07 19:27 | NUR ---
RN CLOSING NOTE PATIENT IN BED ON SEMI HOYOS'S POSITION. WITH 02 VIA NASAL CANNULA AT 2L/MIN. NO LABORED BREATHING NOTED, O2 SATURATION 97%. WITH SOFT WRIST RESTRAINTS ON BOTH UPPER EXTREMITIES. WITH LEFT ARM IV INFUSING WITH NS AT 75 ML/HR. WITH LEFT ANTECUBITAL SALINE LOCK INTACT AND PATENT. BOWDEN CATHETER INTACT, DRAINING TO YELLOW URINE. BED IS LOCKED IN THE LOWEST POSITION, 3 GUARD RAILS RAISED, CALL SERRANO WITHIN REACH, AND ALL HOSPITAL PRECAUTIONS ARE IN PLACE. ALL DUE MEDICATIONS GIVEN AND PATIENT REMAINED STABLE THROUGHOUT SHIFT. WILL ENDORSE TO HYDRAULIC LIFT OPERATOR NURSE.
--- NOTE | 2022-04-07 19:30 | NUR ---
RN OPENING NOTE RECEIVED PATIENT IN BED AWAKE ON SEMI HOYOS'S POSITION. FAMILY ON BEDSIDE. WITH 02 VIA NASAL CANNULA AT 2L. SPEAKS ROMANIAN ONLY. NO S/SX OF ACUTE DISTRESS NOTED AT THIS TIME. O2 SATURATION AT 98%. PT HAS BILATERAL SOFT WRIST RESTRAINTS. IV ACCESS NOTED IN THE LEFT ARM INFUSING NS AT 75 ML/HR. LEFT ANTECUBITAL SALINE LOCK ALSO NOTED, INTACT AND PATENT. BOWDEN CATHETER NOTED DRAINING BY GRAVITY. ALL SAFETY MEASURES IN PLACE. BED IS LOCKED, IN LOWEST POSITION, 3 SIDE RAILS UP, CALL LIGHT WITHIN REACH, WILL CONTINUE TO MONITOR.
[2022-04-07] MEDS: MEROPENEM 500 MG in IV NS 0.9% 50 ML IV SCH (20:02)
[2022-04-07] MEDS: ALPRAZOLAM 0.25 MG TABLET PO PRN (22:13)
[2022-04-08] VITALS: BP 123/70
[2022-04-08] MEDS: IV NS 0.9% 1,000 ML IV PRN ×2 (01:09→17:49)
[2022-04-08 04:00] VITALS: BP 123/76
[2022-04-08 07:01] LABS: BASOPHILS % (AUTO) 0.7 % (0.0-2.0); EOSINOPHILS % (AUTO) 4.2 % (0.0-6.0); HEMATOCRIT 27 % (33-45); LYMPHOCYTES # (AUTO) 1.2 K/uL (0.8-4.8); LYMPHOCYTES % (AUTO) 19.2 % (20.0-44.0); MEAN CORPUSCULAR HGB CONC 33 g/dl (31.0-36.0); MEAN CORPUSCULAR VOLUME 88 fL (82-100); MONOCYTES # (AUTO) 0.5 K/uL (0.1-1.30); MONOCYTES % (AUTO) 8.9 % (2.0-12.0); NEUTROPHILS # (AUTO) 4.1 K/uL (1.8-8.9); PLATELET COUNT (AUTO) 250 K/uL (150-450); RED BLOOD CELL COUNT(AUTO) 3.11 MIL/uL (4.0-5.2)
--- NOTE | 2022-04-08 07:01 | NUR ---
RN CLOSING NOTE PATIENT IN BED, AWAKE WITH 02 VIA NASAL CANNULA AT 2L/MIN. SHE IS A/O X 1. SPEAKS DANISH ONLY. NO LABORED BREATHING NOTED, O2 SATURATION IS AT 96%. WITH BILATERAL SOFT WRIST RESTRAINTS. IV ACCESS NOTED AT LEFT ARM INFUSING NS AT 75 ML/HR. ALSO WITH LEFT ANTECUBITAL SALINE LOCK INTACT AND PATENT. BOWDEN CATHETER INTACT, DRAINING TO YELLOW URINE. ALL DUE MEDS GIVEN. ALL SAFETY MEASURES IMPLEMENTED. BED LOCKED IN THE LOWEST POSITION, 3 SIDE RAILS UP, CALL LIGHT WITHIN REACH. WILL ENDORSE TO AM SHIFT NURSE FOR DEN.
[2022-04-08 07:24] LABS: CALCIUM, SERUM 8.4 mg/dL (8.5-10.1); CARBON DIOXIDE 25 mmol/L (21-32); CHLORIDE 108 mmol/L (98-107); GLUCOSE 111 mg/dL (74-106); POTASSIUM 3.5 mmol/L (3.5-5.1); SODIUM SERUM 142 mmol/L (136-145); UREA NITROGEN, BLOOD 14 mg/dL (7-18)
--- NOTE | 2022-04-08 07:30 | NUR ---
RN OPENING NOTE PT OBSERVED IN BED. PT IS ON 2L O2 VIA NC SAT 96% TOLERATING WELL WITH NO SIGNS OF DISTRESS OR LABORED BREATHING. PT IS A/OX1 KAZAKH SPEAKING ONLY AND ON TELE MONITORED ST 130'S; ;SOFT BILATERAL WRIST RESTRAINTS; BED REST WITH DIAPER AND FC DRAINING URINE TO GRAVITY; PUREED DIET. IV ACCESS L UA MIDLINE INFUSING WITH NS @75ML/HR AND L AC. BED IS LOCKED IN LOWEST POSITION X 3 BED RAILS UP AND ALL HOSPITAL SAFETY PRECAUTIONS ARE IN PLACE WILL CONTINUE TO MONITOR THIS SHIFT.
[2022-04-08] MEDS: MEROPENEM 500 MG in IV NS 0.9% 50 ML IV SCH ×2 (07:46→20:53)
[2022-04-08 08:00] VITALS: BP 138/89
[2022-04-08] MEDS: PANTOPRAZOLE 40 MG/PACK PACK PO SCH (08:19)
[2022-04-08 12:00] VITALS: BP 144/74
[2022-04-08] MEDS: VANCOMYCIN 1 GM in IV D5W 250 ML IV SCH (12:57)
[2022-04-08 16:00] VITALS: BP 139/83
--- NOTE | 2022-04-08 19:36 | NUR ---
RN CLOSING NOTE PT IS IN BED. PT IS ON 2L O2 VIA NC SAT 96% TOLERATING WELL WITH NO SIGNS OF DISTRESS OR LABORED BREATHING. PT IS A/OX1 [place]ER SPEAKING ONLY AND ON TELE MONITORED ST 130'S; ;SOFT BILATERAL WRIST RESTRAINTS; BED REST WITH DIAPER AND FC DRAINING URINE TO GRAVITY -950ML; PUREED DIET. IV ACCESS L UA MIDLINE INFUSING WITH NS @75ML/HR AND L AC. BED IS LOCKED IN LOWEST POSITION X 3 BED RAILS UP AND ALL HOSPITAL SAFETY PRECAUTIONS ARE IN PLACE WILL ENDORSE TO SECONDARY SPANISH TEACHER NURSE FOR DEN.
[2022-04-08 20:00] VITALS: BP 132/84
[2022-04-08] MEDS: ALPRAZOLAM 0.25 MG TABLET PO PRN (23:53)
[2022-04-09] VITALS: BP 132/76
--- NOTE | 2022-04-09 00:01 | NUR ---
JOELLEN/RN AT INITIAL ROUND AT ABOUT 1999, PATIENT WAS AWAKE, CONFUSED, APPEARS COMFORTABLE, NO SIGNS OF DISTRESS NOTED, SOFT WRIST RESTRAINS NOTED FOR PULLING OUT LINES, PRESENTLY, PATIENT IS VERY RESTLESS, CALLING NAMES IN A LOUD VOICE, XANAX 0.5 MG PO WAS GIVEN ORDERED. WILL MONITOR.
[2022-04-09 04:00] VITALS: BP 119/84
--- NOTE | 2022-04-09 04:29 | NUR ---
JOELLEN/RN AT 02;00, ONE HOUR AFTER XANAX PO WAS GIVEN, PATIENT WAS AWAKE BUT CALM AND QUIET, NO SIGNS OF DISTRESS NOTED, BREATHING EVEN AND UNLABORED. PRESENTLY, PATIENT IS AWAKE, CALM, QUIET, APPEARS COMFORTABLE. WILL CONTINUE TO MONITOR.
[2022-04-09] MEDS: IV NS 0.9% 1,000 ML IV PRN ×2 (06:39→20:22)
--- NOTE | 2022-04-09 06:43 | NUR ---
JOELLEN/RN PATIENT IS SLEEPING, APPEARS COMFORTABLE, BREATHING EVEN AND UNLABORED, NO SIGNS OF DISTRESS NOTED, ALL NEEDS ATTENDED AT THIS TIME, WILL CONTINUE TO MONITOR.
[2022-04-09 07:35] LABS: BASOPHILS % (AUTO) 0.7 % (0.0-2.0); EOSINOPHILS % (AUTO) 3.7 % (0.0-6.0); HEMATOCRIT 27 % (33-45); HEMOGLOBIN 8.8 g/dL (11.5-14.8); LYMPHOCYTES # (AUTO) 1.1 K/uL (0.8-4.8); LYMPHOCYTES % (AUTO) 20.5 % (20.0-44.0); MEAN CORPUSCULAR HGB CONC 33 g/dl (31.0-36.0); MEAN CORPUSCULAR VOLUME 88 fL (82-100); MONOCYTES # (AUTO) 0.5 K/uL (0.1-1.30); MONOCYTES % (AUTO) 8.9 % (2.0-12.0); NEUTROPHILS # (AUTO) 3.4 K/uL (1.8-8.9); NEUTROPHILS % (AUTO) 66.2 % (43.0-81.0); PLATELET COUNT (AUTO) 230 K/uL (150-450); RED BLOOD CELL COUNT(AUTO) 3.03 MIL/uL (4.0-5.2); WHITE BLOOD COUNT (AUTO) 5.2 K/uL (4.3-11.0)
[2022-04-09 07:42] LABS: CALCIUM, SERUM 8.4 mg/dL (8.5-10.1); CARBON DIOXIDE 24 mmol/L (21-32); CHLORIDE 109 mmol/L (98-107); CREATININE 0.7 mg/dL (0.6-1.3); GLUCOSE 105 mg/dL (74-106); POTASSIUM 3.3 mmol/L (3.5-5.1); SODIUM SERUM 142 mmol/L (136-145); UREA NITROGEN, BLOOD 8 mg/dL (7-18)
[2022-04-09 08:00] VITALS: BP 163/95
--- NOTE | 2022-04-09 08:32 | NUR ---
CHEMICAL OPERATIONS SPECIALIST OPENING NOTE Patient in bed, awake. Patient is confused. On O2 at 2 LPM via NC, breathing evenly and unlabored. No SOB or s/s of distress noted. IV acces on GUANAKITO midline running NS at 75 ml/hr. Dowell catheter in place draining to a yellow colored urine. Safety precautions in place: bed in low, locked position; siderails up x 2; valentina light within reach. Will continue to monitor.
[2022-04-09] MEDS: MEROPENEM 500 MG in IV NS 0.9% 50 ML IV SCH ×2 (08:41→20:20)
[2022-04-09] MEDS: PANTOPRAZOLE 40 MG/PACK PACK PO SCH (09:37)
[2022-04-09 12:00] VITALS: BP 136/73
[2022-04-09] MEDS ORDERED: POTASSIUM CHLORIDE 20 MEQ POWDER PACKET PO SCH (12:00)
[2022-04-09] MEDS: VANCOMYCIN 1 GM in IV D5W 250 ML IV SCH (12:22)
[2022-04-09] MEDS ORDERED: MINERAL OIL/PETROLATUM,WHITE 120 GM JAR TP PRN (16:00)
[2022-04-09] MEDS: MEMANTINE HCL 5 MG TABLET PO SCH (17:04)
[2022-04-09] MEDS: DICYCLOMINE HCL 10 MG CAPSULE PO SCH (17:04)
[2022-04-09] MEDS: GABAPENTIN 100 MG CAPSULE PO SCH (17:04)
[2022-04-09] MEDS: MECLIZINE HCL 12.5 MG TABLET PO SCH (17:04)
[2022-04-09 18:38] VITALS: BP 132/78
--- NOTE | 2022-04-09 19:24 | NUR ---
BI TESTER CLOSING NOTE Patient in bed, awake. Patient is confused. On O2 at 2 LPM via NC, breathing evenly and unlabored. No SOB or s/s of distress noted. IV acces on GUANAKITO midline running NS at 75 ml/hr. Dowell catheter in place draining to a yellow colored urine with an output of 1000 cc. Ximena meds given. All needs attended to. Safety precautions maintained: bed in low, locked position; siderails up x 2; [place] light within reach. Will endorse to campus police officer nurse for [place].
--- NOTE | 2022-04-09 19:46 | NUR ---
RN NOTE RECEIVED PATIENT IN BED, AWAKE, NON-VERBAL. CONFUSED. BREATHING EVEN AND UNLABORED. NO S/S OF RESPIRATORY DISTRESS. TOLERATING 2L/MIN VIA NASAL CANNULA. 97 PERCENT OXYGEN SATURATION. ON TELE MONITORING, SINUS TACHYCARDIA AT 109 BPM. SKIN WARM AND DRY. NOTED WITH LEFT UPPER ARM MIDLINE, CURRENTLY INFUSING NS AT 75 CC/HR. NO INFILTRATION NOTED. BILATERAL SOFT WRIST RESTRAINTS PRESENT. RADIAL PULSES WNL. RELEASED TO PERFORM PASSIVE RANGE OF MOTION AND APPLIED BACK ON. PATIENT IS CLEAN AND DRY AT THIS TIME. TURNED AND REPOSITIONED. BOWDEN CATHETER INTACT, DRAINING YELLOW URINE BY GRAVITY. BED LOW, IN LOCKED POSITION, CALL LIGHT WITHIN REACH.
[2022-04-09 20:00] VITALS: BP 144/79
[2022-04-09] MEDS: DONEPEZIL 5 MG TABLET PO SCH (21:18)
[2022-04-09] MEDS: ATORVASTATIN 10 MG TABLET PO SCH (21:18)
[2022-04-09] MEDS: METOPROLOL TARTRATE 50 MG TABLET PO SCH (21:18)
[2022-04-10] VITALS: BP 128/76
[2022-04-10 04:00] VITALS: BP 148/77
[2022-04-10 06:19] LABS: CALCIUM, SERUM 8.4 mg/dL (8.5-10.1); CARBON DIOXIDE 26 mmol/L (21-32); CHLORIDE 112 mmol/L (98-107); CREATININE 0.7 mg/dL (0.6-1.3); GLUCOSE 92 mg/dL (74-106); MAGNESIUM 1.6 mg/dL (1.8-2.4); POTASSIUM 3.8 mmol/L (3.5-5.1); SODIUM SERUM 144 mmol/L (136-145); UREA NITROGEN, BLOOD 6 mg/dL (7-18)
--- NOTE | 2022-04-10 07:20 | NUR ---
ms rn received on bed, awake,non verbal patient, not in any distress, respirations even and unlabored,no sob noted, w/ adequate saturation, no s/s of pain at this time, repositioned for comfort,will monitor patient.
[2022-04-10 07:24] LABS: BASOPHILS % (AUTO) 0.8 % (0.0-2.0); EOSINOPHILS % (AUTO) 4.1 % (0.0-6.0); HEMATOCRIT 26 % (33-45); HEMOGLOBIN 8.6 g/dL (11.5-14.8); LYMPHOCYTES # (AUTO) 1.7 K/uL (0.8-4.8); LYMPHOCYTES % (AUTO) 31.6 % (20.0-44.0); MEAN CORPUSCULAR HGB CONC 33 g/dl (31.0-36.0); MEAN CORPUSCULAR VOLUME 89 fL (82-100); MONOCYTES # (AUTO) 0.5 K/uL (0.1-1.30); MONOCYTES % (AUTO) 9.4 % (2.0-12.0); NEUTROPHILS # (AUTO) 2.9 K/uL (1.8-8.9); NEUTROPHILS % (AUTO) 54.1 % (43.0-81.0); PLATELET COUNT (AUTO) 243 K/uL (150-450); RED BLOOD CELL COUNT(AUTO) 2.98 MIL/uL (4.0-5.2); WHITE BLOOD COUNT (AUTO) 5.3 K/uL (4.3-11.0)
[2022-04-10 08:00] VITALS: BP 139/66
--- NOTE | 2022-04-10 08:30 | NUR ---
ms pol[place] breakfast served,moderate appetite, meds given, crushed, tolerated well.
[2022-04-10] MEDS ORDERED: VALSARTAN PO SCH (09:00)
[2022-04-10] MEDS ORDERED: DONEPEZIL HCL PO SCH (09:00)
[2022-04-10] MEDS ORDERED: [UNRECOGNIZED DRUG - OTHER] PO SCH (09:00)
[2022-04-10] MEDS ORDERED: MEMANTINE HCL PO SCH (09:00)
[2022-04-10] MEDS: MEMANTINE HCL 5 MG TABLET PO SCH ×2 (09:59→17:47)
[2022-04-10] MEDS: ARIPIPRAZOLE 2 MG TABLET PO SCH (09:59)
[2022-04-10] MEDS: DICYCLOMINE HCL 10 MG CAPSULE PO SCH ×2 (10:00→17:48)
[2022-04-10] MEDS: PANTOPRAZOLE 40 MG/PACK PACK PO SCH (10:00)
[2022-04-10] MEDS: MECLIZINE HCL 12.5 MG TABLET PO SCH ×2 (10:00→17:47)
[2022-04-10] MEDS: DULOXETINE HCL 30 MG CAPSULE.DR PO SCH (10:00)
[2022-04-10] MEDS: ASPIRIN EC 81 MG TABLET.DR PO SCH (10:00)
[2022-04-10] MEDS: Magnesium 1GM/D5W 100ML PREMIX 100 ML IV SCH ×2 (10:01→11:05)
[2022-04-10] MEDS: GABAPENTIN 100 MG CAPSULE PO SCH ×2 (10:01→17:47)
[2022-04-10] MEDS: MEROPENEM 500 MG in IV NS 0.9% 50 ML IV SCH ×2 (10:02→19:54)
[2022-04-10 12:00] VITALS: BP 125/72
[2022-04-10] MEDS: VANCOMYCIN 1 GM in IV D5W 250 ML IV SCH (12:18)
[2022-04-10 16:00] VITALS: BP 113/62
--- NOTE | 2022-04-10 18:06 | NUR ---
ms rn on bed, no distress noted, will endorse to shift nurse manager for yasmani,all needs attended.
[2022-04-10] MEDS: IV NS 0.9% 1,000 ML IV PRN (18:19)
--- NOTE | 2022-04-10 19:50 | NUR ---
RN NOTE RECEIVED PATIENT IN BED, SLEEPING, AROUSABLE TO NAME AND TOUCH. BREATHING EVEN AND UNLABORED. ON 2L/MIN VIA NASAL CANNULA. NO S/S OF RESPIRATORY DISTRESS. ON TELE MONITORING. NO S/S OF CHEST PAIN. SKIN IS WARM AND DRY TO TOUCH. LEFT UPPER ARM MIDLINE INFUSING NS AT 75 CC/HR. NO INFILTRATION. BILATERAL SOFT WRIST RESTRAINTS RELEASED. ASSISTED WITH RANGE OF MOTION. PATIENT IS NOTED WITH PULLING ON BOWDEN. RESTRAINTS REAPPLIED. RADIAL PULSES WNL BILATERALLY. NO S/S OF SKIN BREAKDOWN ON WRIST. INDWELLING BOWDEN CATHETER INTACT, DRAINING YELLOW URINE BY GRAVITY. NO BLEEDING NOTED. PATIENT TURNED AND REPOSITIONED. PROVIDED WITH THICKENED FLUIDS FOR HYDRATION. BED LOW, IN LOCKED POSITION, CALL LIGHT WITHIN REACH.
[2022-04-10 20:00] VITALS: BP 125/61
[2022-04-10] MEDS: METOPROLOL TARTRATE 50 MG TABLET PO SCH (21:04)
[2022-04-10] MEDS: ATORVASTATIN 10 MG TABLET PO SCH (21:04)
[2022-04-10] MEDS: DONEPEZIL 5 MG TABLET PO SCH (21:04)
[2022-04-11] VITALS: BP 143/76
[2022-04-11] MEDS: IV NS 0.9% 1,000 ML IV PRN ×2 (01:05→18:59)
[2022-04-11 04:00] VITALS: BP 138/71
--- NOTE | 2022-04-11 06:37 | NUR ---
RN NOTE PATIENT SLEPT WELL. ALL DUE MEDICATIONS GIVEN. NS 75 CC/HR INFUSING ON LEFT UPPER ARM MIDLINE, NO INFILTRATION. MAX ASSIST WITH TURNING AND REPOSITIONING. PROVIDED THICKENED FLUIDS FOR ADEQUATE HYDRATION. BILATERAL SOFT WRIST RESTRAINTS RELEASED EVERY HOUR TO ASSESS FOR SKIN INTEGRITY + PASSIVE RANGE OF MOTION. MAX ASSIST WITH HYGIENE CARE. CALL LIGHT WITHIN REACH.
--- NOTE | 2022-04-11 07:15 | NUR ---
RN OPENING NOTES: RECEIVED Patient in bed, awake. Patient is confused. On O2 at 2 LPM via NC, breathing evenly and unlabored. No SOB or s/s of distress noted. IV acces on GUANAKITO midline running NS at 75 ml/hr. Dowell catheter in place draining to a yellow colored urine. Safety precautions in place: bed in low, locked position; siderails up x 2; valentina light within reach. Will continue to monitor.
[2022-04-11 08:00] VITALS: BP 130/67
[2022-04-11] MEDS: MEROPENEM 500 MG in IV NS 0.9% 50 ML IV SCH ×2 (08:17→20:28)
[2022-04-11] MEDS: MEMANTINE HCL 5 MG TABLET PO SCH ×2 (08:18→16:56)
[2022-04-11] MEDS: PANTOPRAZOLE 40 MG/PACK PACK PO SCH (08:19)
[2022-04-11] MEDS: DICYCLOMINE HCL 10 MG CAPSULE PO SCH ×2 (08:19→16:56)
[2022-04-11] MEDS: DULOXETINE HCL 30 MG CAPSULE.DR PO SCH (08:19)
[2022-04-11] MEDS: ASPIRIN EC 81 MG TABLET.DR PO SCH (08:19)
[2022-04-11] MEDS: ARIPIPRAZOLE 2 MG TABLET PO SCH (08:19)
[2022-04-11] MEDS: GABAPENTIN 100 MG CAPSULE PO SCH ×2 (08:20→16:56)
[2022-04-11] MEDS: MECLIZINE HCL 12.5 MG TABLET PO SCH ×2 (08:20→16:56)
[2022-04-11 11:25] LABS: CALCIUM, SERUM 7.9 mg/dL (8.5-10.1); CREATININE 0.8 mg/dL (0.6-1.3); POTASSIUM 3.2 mmol/L (3.5-5.1)
[2022-04-11 12:00] VITALS: BP 112/65
[2022-04-11] MEDS: VANCOMYCIN 1 GM in IV D5W 250 ML IV SCH (12:19)
[2022-04-11 16:00] VITALS: BP 116/62
--- NOTE | 2022-04-11 19:24 | NUR ---
RN CLOSING NOTES: PATIENT SLEPT WELL. ALL DUE MEDICATIONS GIVEN. NS 75 CC/HR INFUSING ON LEFT UPPER ARM MIDLINE, NO INFILTRATION. MAX ASSIST WITH TURNING AND REPOSITIONING. PROVIDED THICKENED FLUIDS FOR ADEQUATE HYDRATION. BILATERAL SOFT WRIST RESTRAINTS RELEASED EVERY HOUR TO ASSESS FOR SKIN INTEGRITY + PASSIVE RANGE OF MOTION. MAX ASSIST WITH HYGIENE CARE. CALL LIGHT WITHIN REACH.
--- NOTE | 2022-04-11 19:25 | NUR ---
RN OPENING NOTE PATIENT ASLEEP IN BED. A/OX1. NO S/S OF DISTRESS. NO S/S OF DISTRESS; BREATHING W/O DIFFICULTY ON 2L NC. GUANAKITO MIDLINE INTACT AND PATENT. TELE MONITOR REVEALS SR 88. SAFETY MEASURES IN PLACE: BED AT LOWEST POSITION, LOCKED, RAILS UP X3, CALL SERRANO WITHIN REACH. WILL CONTINUE TO MONITOR PATIENT.
[2022-04-11 20:00] VITALS: BP 149/68
[2022-04-11] MEDS: DONEPEZIL 5 MG TABLET PO SCH (22:29)
[2022-04-11] MEDS: METOPROLOL TARTRATE 50 MG TABLET PO SCH (22:29)
[2022-04-11] MEDS: ATORVASTATIN 10 MG TABLET PO SCH (22:29)
[2022-04-12] VITALS: BP 127/67
[2022-04-12 04:00] VITALS: BP 144/69
[2022-04-12 06:48] LABS: BASOPHILS % (AUTO) 0.7 % (0.0-2.0); EOSINOPHILS % (AUTO) 5.3 % (0.0-6.0); HEMATOCRIT 26 % (33-45); HEMOGLOBIN 8.5 g/dL (11.5-14.8); LYMPHOCYTES # (AUTO) 1.4 K/uL (0.8-4.8); LYMPHOCYTES % (AUTO) 23.2 % (20.0-44.0); MEAN CORPUSCULAR HGB CONC 33 g/dl (31.0-36.0); MEAN CORPUSCULAR VOLUME 88 fL (82-100); MONOCYTES # (AUTO) 0.5 K/uL (0.1-1.30); MONOCYTES % (AUTO) 7.8 % (2.0-12.0); NEUTROPHILS # (AUTO) 3.7 K/uL (1.8-8.9); PLATELET COUNT (AUTO) 235 K/uL (150-450); RED BLOOD CELL COUNT(AUTO) 2.95 MIL/uL (4.0-5.2); WHITE BLOOD COUNT (AUTO) 5.8 K/uL (4.3-11.0)
--- NOTE | 2022-04-12 06:52 | NUR ---
RN CLOSING NOTE PATIENT ASLEEP IN BED. A/OX1. NO S/S OF DISTRESS, BREATHING ON 2L NC. GUANAKITO MIDLINE W/ NS 75ML/HR. TELE MONITOR REVEALS SR 67. SAFETY MEASURES IN PLACE: BED AT LOWEST POSITION, LOCKED, RAILS UP X3, CALL SERRANO WITHIN REACH. Addendum: 04/12/22 at 0710 by JOSE HERNANDEZ RN PATIENT REPORT ENDORSED TO AND ACKNOWLEDGED BY MICHAEL. JADA
[2022-04-12 06:53] LABS: CALCIUM, SERUM 7.9 mg/dL (8.5-10.1); CARBON DIOXIDE 28 mmol/L (21-32); CHLORIDE 110 mmol/L (98-107); CREATININE 0.7 mg/dL (0.6-1.3); GLUCOSE 86 mg/dL (74-106); POTASSIUM 3.3 mmol/L (3.5-5.1); SODIUM SERUM 144 mmol/L (136-145); UREA NITROGEN, BLOOD 7 mg/dL (7-18)
[2022-04-12] MEDS: MEROPENEM 500 MG in IV NS 0.9% 50 ML IV SCH ×2 (07:30→19:55)
--- NOTE | 2022-04-12 07:43 | NUR ---
RN OPENING NOTE RECEIVED PATIENT AWAKE IN BED. A/OX1. NO S/S OF DISTRESS. NO S/S OF DISTRESS; BREATHING W/O DIFFICULTY ON 2L NC SATING AT 96%. IV ACCESS ON GUANAKITO MIDLINE INTACT AND PATENT. TELE MONITOR REVEALS SR 67. SAFETY MEASURES IN PLACE: BED AT LOWEST POSITION, LOCKED, RAILS UP X3, CALL SERRANO WITHIN REACH. WILL CONTINUE TO MONITOR PATIENT THROUGHOUT SHIFT.
[2022-04-12 08:00] VITALS: BP 123/73
[2022-04-12] MEDS: PANTOPRAZOLE 40 MG/PACK PACK PO SCH (08:17)
[2022-04-12] MEDS: MECLIZINE HCL 12.5 MG TABLET PO SCH ×2 (08:17→17:04)
[2022-04-12] MEDS: GABAPENTIN 100 MG CAPSULE PO SCH ×2 (08:17→17:04)
[2022-04-12] MEDS: DULOXETINE HCL 30 MG CAPSULE.DR PO SCH (08:17)
[2022-04-12] MEDS: ASPIRIN EC 81 MG TABLET.DR PO SCH (08:17)
[2022-04-12] MEDS: MEMANTINE HCL 5 MG TABLET PO SCH ×2 (08:18→17:04)
[2022-04-12] MEDS: ARIPIPRAZOLE 2 MG TABLET PO SCH (08:18)
[2022-04-12] MEDS: DICYCLOMINE HCL 10 MG CAPSULE PO SCH ×2 (08:18→17:04)
[2022-04-12] MEDS ORDERED: POTASSIUM CHLORIDE 20 MEQ TAB.PRT.SR PO ONE ×2 (08:30→10:30)
[2022-04-12] MEDS: IV NS 0.9% 1,000 ML IV PRN ×2 (09:47→22:36)
[2022-04-12] MEDS: ACETAMINOPHEN 325 MG TABLET PO PRN (11:45)
[2022-04-12 12:00] VITALS: BP 119/56
[2022-04-12 16:00] VITALS: BP 130/59
--- NOTE | 2022-04-12 18:21 | NUR ---
RN CLOSING NOTE PT IS RESTING IN BED AWAKE, A/O X 1-2. PT IS ON 2L VIA NC SATING AT 97%. TELE MONITOR READS SR HR IN 60'S. IV ACCESS ON L UA MIDLINE RUNNIGN NS AT 75ML/HR. NO SIGNS OF DISTRESS OR C/O PAIN. ALL NEEDS MET DURING SHIFT. PT TOLERATED ALL MEDICATIONS AND TREATMENTS. ALL SAFETY MEASURES IN PLACE, BED IN LOWEST LOCKED POSITION, SR UP X 2, CALL LIGHT WITHIN REACH. WILL ENDORSE TO VEHICLE RETURN ASSOCIATE NURSE FOR DEN.
--- NOTE | 2022-04-12 19:15 | NUR ---
CUSHION PADDER OPENING NOTES RECEIVED PATIENT LAYING AWAKE IN BED. A/O X1-2. PATIENT WITH REGULAR AND UNLABORED BREATHING ON 2 LPM VIA NASAL CANULA TOLERATED WELL. NO SIGNS AND SYMPTOMS OF DISTRESS NOTED AT THIS TIME. NO COMPLAINS OF PAIN OR DISCOMFORT AT THIS TIME. IV ACCESS GUANAKITO MIDLINE INFUSING NS @ 75 ML/HR. IV ACCESS PATENT AND INTACT. SAFETY PRECAUTIONS ENFORCED WITH BED LOCKED AND AT THE LOWEST POSITION. CALL LIGHT WITHIN REACH AT ALL TIMES. WILL CONTINUE TO MONITOR PATIENT.
[2022-04-12 20:00] VITALS: BP 137/64
[2022-04-12] MEDS: ATORVASTATIN 10 MG TABLET PO SCH (21:43)
[2022-04-12] MEDS: DONEPEZIL 5 MG TABLET PO SCH (21:43)
[2022-04-12] MEDS: METOPROLOL TARTRATE 50 MG TABLET PO SCH (21:44)
[2022-04-13] VITALS (7 sets, daily range): BP systolic 94–158; BP diastolic 47–78
[2022-04-13 06:15] LABS: CALCIUM, SERUM 8.4 mg/dL (8.5-10.1); CARBON DIOXIDE 25 mmol/L (21-32); CHLORIDE 111 mmol/L (98-107); CREATININE 0.6 mg/dL (0.6-1.3); GLUCOSE 92 mg/dL (74-106); POTASSIUM 3.6 mmol/L (3.5-5.1); SODIUM SERUM 144 mmol/L (136-145); UREA NITROGEN, BLOOD 7 mg/dL (7-18)
[2022-04-13 06:32] LABS: BASOPHILS % (AUTO) 0.5 % (0.0-2.0); EOSINOPHILS % (AUTO) 4.6 % (0.0-6.0); HEMATOCRIT 27 % (33-45); HEMOGLOBIN 8.8 g/dL (11.5-14.8); LYMPHOCYTES # (AUTO) 1.7 K/uL (0.8-4.8); LYMPHOCYTES % (AUTO) 22.5 % (20.0-44.0); MEAN CORPUSCULAR HGB CONC 33 g/dl (31.0-36.0); MEAN CORPUSCULAR VOLUME 88 fL (82-100); MONOCYTES # (AUTO) 0.5 K/uL (0.1-1.30); MONOCYTES % (AUTO) 6.7 % (2.0-12.0); NEUTROPHILS % (AUTO) 65.7 % (43.0-81.0); PLATELET COUNT (AUTO) 259 K/uL (150-450); RED BLOOD CELL COUNT(AUTO) 3.06 MIL/uL (4.0-5.2); WHITE BLOOD COUNT (AUTO) 7.5 K/uL (4.3-11.0)
--- NOTE | 2022-04-13 06:42 | NUR ---
COIL ASSEMBLER CLOSING NOTES PATIENT STILL LAYING AWAKE IN BED. A/O X1-2. PATIENT WITH REGULAR AND UNLABORED BREATHING ON 2 LPM VIA NASAL CANULA TOLERATED WELL. NO SIGNS AND SYMPTOMS OF DISTRESS NOTED AT THIS TIME. NO COMPLAINS OF PAIN OR DISCOMFORT AT THIS TIME. PATIENT ON TELE MONITOR READING SR @ 95 BPM. IV ACCESS GUANAKITO MIDLINE INFUSING NS @ 75 ML/HR. IV ACCESS PATENT AND INTACT. SAFETY PRECAUTIONS ENFORCED WITH BED LOCKED AND AT THE LOWEST POSITION. CALL LIGHT WITHIN REACH AT ALL TIMES. WILL ENDORSE CONTINUITY OF CARE TO DAY SHIFT NURSE.
[2022-04-13] MEDS: MEROPENEM 500 MG in IV NS 0.9% 50 ML IV SCH ×2 (07:34→19:28)
--- NOTE | 2022-04-13 08:00 | NUR ---
CT MRI TECHNOLOGIST NOTES PATIENT STILL LAYING AWAKE IN BED. A/O X1-2. PATIENT WITH REGULAR AND UNLABORED BREATHING ON 2 LPM VIA NASAL CANULA TOLERATED WELL. NO SIGNS AND SYMPTOMS OF DISTRESS NOTED AT THIS TIME. NO COMPLAINS OF PAIN OR DISCOMFORT AT THIS TIME. PATIENT ON TELE MONITOR READING SR @ 96 BPM. IV ACCESS GUANAKITO MIDLINE INFUSING NS @ 75 ML/HR. IV ACCESS PATENT AND INTACT. SAFETY PRECAUTIONS ENFORCED WITH BED LOCKED AND AT THE LOWEST POSITION. CALL LIGHT WITHIN REACH AT ALL TIMES. WILL MONITOR
[2022-04-13] MEDS: PANTOPRAZOLE 40 MG/PACK PACK PO SCH (08:36)
[2022-04-13] MEDS: ASPIRIN EC 81 MG TABLET.DR PO SCH (08:37)
[2022-04-13] MEDS: MECLIZINE HCL 12.5 MG TABLET PO SCH ×2 (08:37→16:14)
[2022-04-13] MEDS: MEMANTINE HCL 5 MG TABLET PO SCH ×2 (08:37→16:14)
[2022-04-13] MEDS: ARIPIPRAZOLE 2 MG TABLET PO SCH (08:37)
[2022-04-13] MEDS: GABAPENTIN 100 MG CAPSULE PO SCH ×2 (08:37→16:14)
[2022-04-13] MEDS: DULOXETINE HCL 30 MG CAPSULE.DR PO SCH (08:37)
[2022-04-13] MEDS: DICYCLOMINE HCL 10 MG CAPSULE PO SCH ×2 (08:43→16:14)
--- NOTE | 2022-04-13 10:49 | NUR ---
MANAGER BOOK NOTE ROUNDS MADE , ALL NEEDS ATTENDED ,KEEP CLEAN DRY, WILL MONITOR Addendum: 04/13/22 at 1241 by SO POPE RN FAMILY AT BEDSIDE, FEED PATIENT , ALL NEEDS ATTENDED
[2022-04-13] MEDS: IV NS 0.9% 1,000 ML IV PRN (14:19)
--- NOTE | 2022-04-13 19:20 | NUR ---
RN NOTE RECEIVED PATIENT IN BED RESTING ALERT ORIENTED X1,CONFUSED, URDU SPEAKING ON 2L OXYGEN VIA NASAL CANNULA,O2:97%,IV SITE IS ON LEFT UPPER ARM MIDLINE INTACT PATENT ON IV NS 75CC/HR,SOFT BILATERAL WRIST RESTRAINS IN PLACE WILL CHECK EVERY 15 MINS FOR SKIN BREAKDOWN AND CIRCULATION,BOWDEN CATHETER IN PLACE URINE DRAINING BY GRAVITY,SAFETY MEASURE IMPLEMENT BED IN LOW POSITION AND LOCKED,BED ALARM IS ON CONTINUE TO MONITOR.
[2022-04-13] MEDS: ATORVASTATIN 10 MG TABLET PO SCH (21:45)
[2022-04-13] MEDS: DONEPEZIL 5 MG TABLET PO SCH (21:46)
[2022-04-13] MEDS: METOPROLOL TARTRATE 50 MG TABLET PO SCH (21:46)
[2022-04-14] VITALS: BP 157/84
[2022-04-14] MEDS: IV NS 0.9% 1,000 ML IV PRN ×2 (03:26→16:57)
[2022-04-14 04:00] VITALS: BP 145/66
--- NOTE | 2022-04-14 06:47 | NUR ---
RN NOTE PATIENT REMAINS ALERT ORIENTED X1 CONFUSED ON 2L OXYGEN VIA NASAL CANNULA,O2:96% NO SOB NOT ACUTE DISTRESS NOTED,REPOSITIONED EVERY 2 HOURS,SOFT BILATERAL WRIST RESTRAINS IN PLACE,BOWDEN CATH IN PLACE,URINE DRAINING BY GRAVITY,KEPT CLEAN AND DRY,ALL DUE MEDS GIVEN MD ORDERED.ENDORSE NEXT COMING SHIFT FOR CONTINUATION OF CARE.
--- NOTE | 2022-04-14 07:30 | NUR ---
RADIOLOGIC TECH AM NOTES PATIENT IN BED, A/O X1-2. ON ROOM AIR, O2 SAT 100%, NO SOB, REGULAR AND UNLABORED BREATHING, SR HR 80 ON MONITOR. NO COMPLAINS OF PAIN OR DISCOMFORT AT THIS TIME. IV ACCESS GUANAKITO MIDLINE WITH NS @ 75 ML/HR INFUSING WELL. SITE CLEAR. SEE NURSING FLOWSHEET FOR SKIN ISSUES. BOWDEN CATH IN PLACE DRAINING VIA GRAVITY, ADEQUATE AMOUNT URINE OUTPUT. PUREED DIET. CRUSH MEDS. WITH BILAT SOFT WRIST RESTRAING. RELEASED AND CHECKED FOR CIRCULATION, THEN Q 2 HOURS. TURN AND REPOSITION Q 2 HOURS.SAFETY PRECAUTIONS ENFORCED WITH BED LOCKED AND AT THE LOWEST POSITION. CALL LIGHT WITHIN REACH AT ALL TIMES. WILL MONITOR
[2022-04-14 07:52] LABS: CHLORIDE 109 mmol/L (98-107); CREATININE 0.7 mg/dL (0.6-1.3); GLUCOSE 89 mg/dL (74-106); POTASSIUM 3.3 mmol/L (3.5-5.1); SODIUM SERUM 144 mmol/L (136-145); UREA NITROGEN, BLOOD 6 mg/dL (7-18)
[2022-04-14 08:00] VITALS: BP 156/76
[2022-04-14 08:07] LABS: CALCIUM, SERUM 8.6 mg/dL (8.5-10.1); CARBON DIOXIDE 28 mmol/L (21-32)
--- NOTE | 2022-04-14 09:30 | NUR ---
RN NOTES DUE MEDS GIVEN
[2022-04-14] MEDS: MEMANTINE HCL 5 MG TABLET PO SCH ×2 (09:35→16:59)
[2022-04-14] MEDS: PANTOPRAZOLE 40 MG/PACK PACK PO SCH (09:35)
[2022-04-14] MEDS: MEROPENEM 500 MG in IV NS 0.9% 50 ML IV SCH ×2 (09:35→20:46)
[2022-04-14] MEDS: GABAPENTIN 100 MG CAPSULE PO SCH ×2 (09:36→16:59)
[2022-04-14] MEDS: MECLIZINE HCL 12.5 MG TABLET PO SCH ×2 (09:36→16:59)
[2022-04-14] MEDS: DULOXETINE HCL 30 MG CAPSULE.DR PO SCH (09:36)
[2022-04-14] MEDS: ARIPIPRAZOLE 2 MG TABLET PO SCH (09:36)
[2022-04-14] MEDS: ASPIRIN EC 81 MG TABLET.DR PO SCH (09:36)
[2022-04-14] MEDS: DICYCLOMINE HCL 10 MG CAPSULE PO SCH ×2 (09:37→16:59)
[2022-04-14 12:00] VITALS: BP 142/66
[2022-04-14] MEDS ORDERED: POTASSIUM CHLORIDE 20 MEQ POWDER PACKET PO SCH (12:00)
[2022-04-14] MEDS: ALPRAZOLAM 0.25 MG TABLET PO PRN (12:09)
--- NOTE | 2022-04-14 13:17 | NUR ---
RN NOTES WAS GOING TO START KCL BAG #2, BUT CARDIAC CATH STAFF ON SITE TO INCOME TAX EXPERT PATIENT. WILL CONT TO INFUSE AFTER PROCEDURE. AWARE. Addendum: 04/14/22 at 1323 by ADRIAN MORALES RN CORRECTION: DISREGARD THIS DOCUMENTATION INTENDED FOR ANOTHER PATIENT
[2022-04-14 16:00] VITALS: BP 147/76
--- NOTE | 2022-04-14 18:39 | NUR ---
ROUTE SALES MANAGER CLOSING NOTES PATIENT RESTING IN BED, COMFORTABLE, A/O X1-2. ON ROOM AIR, O2 SAT 98%, NO SOB, REGULAR AND UNLABORED BREATHING, SR HR 75 ON MONITOR. NO COMPLAINS OF PAIN OR DISCOMFORT AT THIS TIME. IV ACCESS GUANAKITO MIDLINE WITH NS @ 75 ML/HR INFUSING WELL. SITE CLEAR. BOWDEN CATH IN PLACE DRAINING VIA GRAVITY, 1400 ML URINE OUTPUT. PUREED DIET. CRUSH MEDS. WITH BILAT SOFT WRIST RESTRAINS. RELEASED AND CHECKED FOR CIRCULATION, THEN Q 2 HOURS. TURNED AND REPOSITIONED Q 2 HOURS.SAFETY PRECAUTIONS ENFORCED WITH BED LOCKED AND AT THE LOWEST POSITION. CALL LIGHT WITHIN REACH AT ALL TIMES. PM CARE DONE EARLIER. ALL NEEDS MET AT THIS TIME. WILL ENDORSE TO NEXT SHIFT FOR DEN
[2022-04-14 20:00] VITALS: BP 115/70
[2022-04-14] MEDS: DONEPEZIL 5 MG TABLET PO SCH (21:05)
[2022-04-14] MEDS: ATORVASTATIN 10 MG TABLET PO SCH (21:05)
[2022-04-14] MEDS: METOPROLOL TARTRATE 50 MG TABLET PO SCH (21:12)
[2022-04-15] VITALS: BP 159/70
[2022-04-15 04:00] VITALS: BP 152/72
--- NOTE | 2022-04-15 06:47 | NUR ---
CLOSING NOTES, No significant change in condition doing the night, patient asleep arouses to verbal stimuli, cont on 2lpm via nc with optimal or sat, stable vital sings, afebrile, on bilateral soft restrains, no circulation compromised, no abnormality noted at site, GUANAKITO midline IV fluids infusing as ordered, be locked and in lowest position, patient dry and clean, on aspiration precautions, bed of head elevated, will endorse continuity of care to oncoming nurse.
[2022-04-15 06:53] LABS: CALCIUM, SERUM 8.6 mg/dL (8.5-10.1); CARBON DIOXIDE 29 mmol/L (21-32); CHLORIDE 107 mmol/L (98-107); CREATININE 0.6 mg/dL (0.6-1.3); GLUCOSE 89 mg/dL (74-106); POTASSIUM 3.1 mmol/L (3.5-5.1); SODIUM SERUM 143 mmol/L (136-145); UREA NITROGEN, BLOOD 5 mg/dL (7-18)
--- NOTE | 2022-04-15 07:30 | NUR ---
HEAD BUYER TOBACCO AM NOTES PATIENT IN BED, A/O X1-2. ON ROOM AIR, O2 SAT 97%, NO SOB, REGULAR AND UNLABORED BREATHING, SR HR 82 ON MONITOR. NO COMPLAINS OF PAIN OR DISCOMFORT AT THIS TIME. IV ACCESS GUANAKITO MIDLINE WITH NS @ 75 ML/HR INFUSING WELL. SITE CLEAR. SEE NURSING FLOWSHEET FOR SKIN ISSUES. BOWDEN CATH IN PLACE DRAINING VIA GRAVITY, ADEQUATE AMOUNT URINE OUTPUT. PUREED DIET. CRUSH MEDS. WITH BILAT SOFT WRIST RESTRAINTS. RELEASED AND CHECKED FOR CIRCULATION, THEN Q 2 HOURS. TURN AND REPOSITION Q 2 HOURS.SAFETY PRECAUTIONS ENFORCED WITH BED LOCKED AND AT THE LOWEST POSITION. CALL LIGHT WITHIN REACH AT ALL TIMES. WILL MONITOR
[2022-04-15 08:00] VITALS: BP 159/75
[2022-04-15] MEDS: DULOXETINE HCL 30 MG CAPSULE.DR PO SCH (08:11)
[2022-04-15] MEDS: DICYCLOMINE HCL 10 MG CAPSULE PO SCH ×2 (08:11→17:33)
[2022-04-15] MEDS: GABAPENTIN 100 MG CAPSULE PO SCH ×2 (08:11→17:33)
[2022-04-15] MEDS: ARIPIPRAZOLE 2 MG TABLET PO SCH (08:11)
[2022-04-15] MEDS: MECLIZINE HCL 12.5 MG TABLET PO SCH ×2 (08:12→17:33)
[2022-04-15] MEDS: ASPIRIN EC 81 MG TABLET.DR PO SCH (08:12)
[2022-04-15] MEDS: MEMANTINE HCL 5 MG TABLET PO SCH ×2 (08:12→17:33)
[2022-04-15 08:21] LABS: ABG BASE EXCESS 4.1 mmol/L; ABG PCO2 40.4 mmHg (35.0-45.0); ABG PH 7.462 (7.350-7.450); ABG PO2 62.6 mmHg (75.0-100.0); COHb 0.2 % (0.5-1.5); MetHb 0.3 % (0.0-1.5); O2Hb 91.6 % (94.0-97.0); SITE, ABG Right Radial; VENT MODE, BG ROOM AIR
[2022-04-15] MEDS: IV NS 0.9% 1,000 ML IV PRN (08:26)
--- NOTE | 2022-04-15 09:30 | NUR ---
RN NOTES DUE MEDS GIVEN
[2022-04-15] MEDS: PANTOPRAZOLE 40 MG/PACK PACK PO SCH (09:52)
[2022-04-15] MEDS ORDERED: Potassium Chloride 20 MEQ in IV NS 0.9% 1,000 ML IV SCH (11:30)
[2022-04-15 12:00] VITALS: BP 119/68
--- NOTE | 2022-04-15 12:45 | NUR ---
RN NOTES PATIENT FOR DISCHARGE TO HOME WITH HOSPICE PER MD, NOT IN ANY DISTRESS AT THIS TIME. WILL PROVIDE DC INSTRUCTIONS, MED RECON LIST AND HEALTH TEACHINGS. PATIENT TO BE SEEN BY PCP PER HOSPICE PROTOCOL. WILL REMOVE IV ACCESS ON LEFT UPPER ARM AND LEFT AC LATER. WILL TAKE PHOTOS OF SKIN ISSUES LATER. ALL BELONGINGS CHECKED. ALL PAPERWORKS SIGNED. WILL BE PICKED UP BY AMBULANCE LATER AT 1930 TO TRANSPORT TO HOME.
[2022-04-15] MEDS: POTASSIUM CHLORIDE 20 MEQ POWDER PACKET NG SCH ×2 (12:57→13:48)
[2022-04-15 16:00] VITALS: BP 157/85
--- NOTE | 2022-04-15 19:01 | NUR ---
CARRIER OPERATOR CLOSING NOTES PATIENT RESTING IN BED, COMFORTABLE, A/O X1-2. ON ROOM AIR, O2 SAT 98%, NO SOB, REGULAR AND UNLABORED BREATHING, SR HR 85 ON MONITOR. NO COMPLAINS OF PAIN OR DISCOMFORT AT THIS TIME. IV ACCESS GUANAKITO MIDLINE WITH NS @ 75 ML/HR INFUSING WELL. SITE CLEAR. BOWDEN CATH IN PLACE DRAINING VIA GRAVITY, 450 ML URINE OUTPUT. PUREED DIET. CRUSH MEDS. WITH BILAT SOFT WRIST RESTRAINS. RELEASED AND CHECKED FOR CIRCULATION, THEN Q 2 HOURS. TURNED AND REPOSITIONED Q 2 HOURS.SAFETY PRECAUTIONS ENFORCED WITH BED LOCKED AND AT THE LOWEST POSITION. CALL LIGHT WITHIN REACH AT ALL TIMES. PM CARE DONE EARLIER. ALL NEEDS MET AT THIS TIME. WILL ENDORSE TO NEXT SHIFT FOR DEN PATIENT FOR DISCHARGE. DC IV ACCESS AND BOWDEN CATHETER.
--- NOTE | 2022-04-15 20:09 | NUR ---
RN NOTE PT DISCHARGED AND PICKED UP BY [facility]. PT STABLE. F/C AND IV ACCESS DISCONTINUED.
== END 2022-04-15 20:00 | DRG 871 ==
LOC: ER 21:46 → ICU 23:32 → TELE1 04-07 12:22 → MEDSG1 04-15 14:45
PROVIDERS: ADMIT Nurse Practitioner Acute Care; ATTEND Legal Medicine
PROC: 05HC33Z Insertion of Infusion Device into Left Basilic Vein, Percutaneous Approach (ICD-10-PCS; principal; 2022-04-06)
DX: A41.9 Sepsis, unspecified organism (principal); R65.21 Severe sepsis with septic shock; N17.0 Acute kidney failure with tubular necrosis; G92.8 Other toxic encephalopathy; N39.0 Urinary tract infection, site not specified; E46 Unspecified protein-calorie malnutrition; Z16.12 Extended spectrum beta lactamase (ESBL) resistance; E86.0 Dehydration; F03.90 Unspecified dementia, unspecified severity, without behavioral disturbance, psychotic disturbance, mood disturbance, and anxiety; E11.9 Type 2 diabetes mellitus without complications; I10 Essential (primary) hypertension; Z90.49 Acquired absence of other specified parts of digestive tract; Z87.440 Personal history of urinary (tract) infections; Z98.890 Other specified postprocedural states; Z79.82 Long term (current) use of aspirin; Z79.899 Other long term (current) drug therapy; E78.5 Hyperlipidemia, unspecified; F32.A Depression, unspecified; D63.8 Anemia in other chronic diseases classified elsewhere; I25.10 Atherosclerotic heart disease of native coronary artery without angina pectoris; K21.9 Gastro-esophageal reflux disease without esophagitis; M19.90 Unspecified osteoarthritis, unspecified site; F41.9 Anxiety disorder, unspecified; D64.9 Anemia, unspecified; E88.09 Other disorders of plasma-protein metabolism, not elsewhere classified; B35.1 Tinea unguium; B96.20 Unspecified Escherichia coli [E. coli] as the cause of diseases classified elsewhere; F09 Unspecified mental disorder due to known physiological condition; M20.40 Other hammer toe(s) (acquired), unspecified foot; R32 Unspecified urinary incontinence; S90.31XA Contusion of right foot, initial encounter; X58.XXXA Exposure to other specified factors, initial encounter; Y92.9 Unspecified place or not applicable; L89.621 Pressure ulcer of left heel, stage 1; L89.611 Pressure ulcer of right heel, stage 1; M20.10 Hallux valgus (acquired), unspecified foot; Z74.01 Bed confinement status; R26.9 Unspecified abnormalities of gait and mobility; Z20.822 Contact with and (suspected) exposure to COVID-19
CPT/HCPCS: 36410; 36415; 36600; 71045-TC; 71250-TC; 80048-TC; 80076-TC; 80202-TC; 81001; 82803-TC; 82962-TC; 83605-TC; 83735-TC; 83880; 84100-TC; 84443-TC; 84484-TC; 85025-TC; 85730-TC; 87040-TC; 87086-TC; 87186-TC; 93307-TC; 94799-TC; C9113; C9803; G0378; J2185; J2543; J3370; J3475; J3480; J7030; J7040; J7050; J7060; J8597; U0003